=== PATIENT | female | born 1970 | race Caucasian/White ===

== ENCOUNTER 2022-09-04 13:46 | Outpatient (CLI) | payer OTHER, SELFPAY | END 2022-09-04 13:47 | disposition home or self-care (01) | LOC: LKVREF 09-08 11:00 | PROVIDERS: PCP Physician Assistant Medical; Visit Provider Registered Nurse | DX: R30.0 Dysuria (principal); N39.0 Urinary tract infection, site not specified | CPT/HCPCS: 87086; 87186 ==

== ENCOUNTER 2022-10-09 13:11 | Outpatient (CLI) | payer OTHER, SELFPAY ==
--- NOTE | 2022-10-09 13:20 | CRLHL7_ITS ---
For Patients: As a result of the Century Cures Act, medical imaging exams and procedure reports are released immediately into your electronic medical record. You may view this report before your referring provider. If you have questions, please contact your health care provider. BILATERAL SCREENING MAMMOGRAM WITH COMPUTER-AIDED DETECTION TECHNIQUE: CC and MLO views were obtained. These mammographic images have been obtained using full-field digital technique. These mammographic images were interpreted with the benefit of computer-aided detection. COMPARISON FILM: 02/04/21, 04/18/20, 12/24/17. FINDINGS: There are scattered areas of fibroglandular density IMPRESSION: There is no radiographic evidence for malignancy. ASSESSMENT: BI-RADS Category 2: Benign RECOMMENDATION: Routine screening mammogram in 1 year. A lay language report of this examination will be provided to the patient. Kt Irvin M.D. Diagnostic Radiologist [email or web address] SHANE/Dictated by: Kt Irvin MD @ 10/12/2022 8:55:00 AM (Electronically Signed)
== END 2022-10-09 13:12 | disposition home or self-care (01) ==
LOC: MAMMO 13:13
PROVIDERS: PCP Physician Assistant Medical; Visit Provider Physician Assistant Medical
DX: Z12.31 Encounter for screening mammogram for malignant neoplasm of breast (principal)
CPT/HCPCS: 77063; 77067

== ENCOUNTER 2023-08-04 07:30 | Outpatient (CLI) | payer OTHER, SELFPAY | END 2023-08-04 07:31 | disposition home or self-care (01) | LOC: NFLDREF 08-06 12:53 | PROVIDERS: PCP Physician Assistant Medical; Referring Provider Physician Assistant Medical; Visit Provider Physician Assistant Medical | DX: D68.51 Activated protein C resistance (principal); Z79.01 Long term (current) use of anticoagulants | CPT/HCPCS: 85610 ==

== ENCOUNTER 2023-08-13 16:47 | Emergency (ER) | payer OTHER, SELFPAY ==
[2023-08-13 17:04] VITALS: BP 189/121; PULSE 63; RESP 18; TEMP 36.5; O2SAT 97; BMI 43.9
--- NOTE | 2023-08-13 17:56 | CRLHL7_ITS ---
For Patients: As a result of the Century Cures Act, medical imaging exams and procedure reports are released immediately into your electronic medical record. You may view this report before your referring provider. If you have questions, please contact your health care provider. INDICATION: Left flank pain COMPARISON: December 12, 2021 TECHNIQUE: CT examination of the abdomen and pelvis was performed without intravenous contrast. Thin section axial images were obtained from the lung bases through the pubic symphysis. Oral contrast was not administered. Please note that all CT scans at this facility use dose modulation, iterative reconstruction, and/or weight-based dosing when appropriate to reduce radiation dose to as low as reasonably achievable. FINDINGS: LUNG BASES: Basilar opacities likely atelectatic. Smallhiatal hernia. Heart size normal at the lung bases LIVER/BILIARY SYSTEM:The liver is normal in size and configuration given the lack of intravenous contrast. There is no visible focal mass and there is no intra- or extra hepatic biliary ductal dilatation.Surgically absent gallbladder ADRENALS: Normal non-contrast appearance KIDNEYS, URETERS and BLADDER:The kidneys appear normal given lack of intravenous contrast. No visible mass, calculus or hydronephrosis. The ureters and bladder as visualized appear normal. SPLEEN:Normal non-contrast appearance. PANCREAS: Normal non-contrast appearance. RETROPERITONEUM and MESENTERY: There is no mass, adenopathy or aortic aneurysm. GASTROINTESTINAL SYSTEM: Findings of a gastric bypass without visible complication. There is no evidence of diverticulitis, colitis, mechanical obstruction, or appendicitis. The small bowel as visualized appears normal.Fecal retention. Diverticulosis especially sigmoid appearance PELVIS: No mass, adenopathy or free fluid. OSSEOUS STRUCTURES and ABDOMINAL WALL: Degenerative change of the spine. Postoperative changes of the anterior abdominal wall. Small fat containing umbilical region hernia unchanged since the prior study.No significant abdominal wall defect. OTHER: No free fluid or free air. IMPRESSION: 1. There is no specific visible cause for left flank pain. 2. Incidental findings include basilar atelectasis, small hiatal hernia, findings of a gastric bypass, fecal retention without mechanical obstruction, diverticulosis without diverticulitis, and degenerative changes of the spine. There is also a small fat containing ventral hernia, unchanged Please note that all CT scans at this facility use dose modulation, iterative reconstruction, and/or weight-based dosing when appropriate to reduce radiation dose to as low as reasonably achievable. Dictated by Dago Kc MD @ 08/13/2023 6:46:23 PM (Electronically Signed)
--- NOTE | 2023-08-13 17:57 | ED.GENADULT ---
HPI - General Adult General Chief complaint: Back Injury/Pain Stated complaint: back pain, potential kidney stone Time Seen by Provider: 08/13/23 16:49 History of Present Illness HPI narrative: This 53-year-old female comes in from clinic where there was suspicion of a kidney stone. She has had left flank pain for the past 5 days but it has become much worse recently. She has had some nausea and vomiting. She states that she has not had any kidney stone in the past but her mother has had kidney stones. At the clinic she did have urinalysis which was negative for infection but there was microscopic hematuria. She comes here for CT imaging. Related Data Home Medications Medication Instructions Recorded Confirmed warfarin 4 mg tablet mg PO DIRECTED 07/09/22 05/11/23 warfarin 5 mg tablet mg PO DIRECTED 07/09/22 05/11/23 multivitamin 1 tab PO QDAY 08/13/23 08/13/23 Previous Rx's Medication Instructions Recorded warfarin 1 mg tablet See Rx Instructions .Route 12/14/22 .COMPLEX #30 tabs warfarin 1 mg tablet 7 mg PO DIRECTED #90 tabs 08/02/23 warfarin 5 mg tablet 5 mg PO DAILY #90 tabs 08/09/23 hydrocodone 5 mg-acetaminophen 325 1 tab PO QHS PRN pain #14 tabs 08/13/23 mg tablet ondansetron HCl 4 mg tablet 4 mg PO Q8H PRN nausea and 08/13/23 vomiting #30 tabs tamsulosin 0.4 mg capsule (Flomax) 0.4 mg PO QDAY #30 caps 08/13/23 Allergies Allergy/AdvReac Type Severity Reaction Status Date / Time Sulfa Antibiotics Allergy Unknown Uncoded 08/13/23 15:34 Review of Systems Status of ROS: Reports: 10 or more systems reviewed and unremarkable except as noted in History and below Narrative: Constitutional: No fevers, no weight gain or loss. Eyes: No discharge. No vision changes. HENT: No congestion, no sore throat, no ear pain. Cardiovascular: No chest pain, no palpitations. Respiratory: No shortness of breath, no wheezes, no cough. Gastrointestinal: No abdominal pain, no diarrhea. Left flank pain. Nausea with vomiting. Genitourinary: No dysuria. Musculoskeletal: Normal range of motion. Skin: No rashes, no pruritis. Neurological: No dizziness, weakness, sensory change, speech change. Endo/Heme/Allergies: No bruising or bleeding. No polydipsia. Pysch: no suicidality, no anxiety, no insomnia. All other systems reviewed and are negative. [facility] Medical History (Updated 08/13/23 @ 18:56 by Tod Hartmann MD) Urinary tract infection ?N39.0 - Urinary tract infection, site not specified (ICD-10) Dysuria ?R30.0 - Dysuria (ICD-10) Elevated cholesterol ?E78.00 - Pure hypercholesterolemia, unspecified (ICD-10) DVT (deep venous thrombosis) ?I82.409 - Acute embolism and thrombosis of unspecified deep veins of unspecified lower extremity (ICD-10) Cough (01/25/14) ?R05.9 - Cough, unspecified (ICD-10) Cholecystectomy planned S/P gastric bypass ?Z98.84 - Bariatric surgery status (ICD-10) Factor V Leiden ?D68.51 - Activated protein C resistance (ICD-10) Chronic anticoagulation ?Z79.01 - MCC (current) use of anticoagulants (ICD-10) Surgical History (Updated 06/16/22 @ 10:29 by Karlo Cristina) History of right cataract extraction ?Z98.41 - Cataract extraction status, right eye (ICD-10) History of left cataract extraction ?Z98.42 - Cataract extraction status, left eye (ICD-10) History of colonoscopy ?Z98.890 - Other specified postprocedural states (ICD-10) History of section ?Z98.891 - History of uterine scar from previous surgery (ICD-10) History of tonsillectomy ?Z90.89 - Acquired absence of other organs (ICD-10) deliv NOS-unsp History of cholecystectomy ?Z90.49 - Acquired absence of other specified parts of digestive tract (ICD-10) H/O gastric bypass ?Z98.84 - Bariatric surgery status (ICD-10) Family History (Updated 06/18/22 @ 15:36 by Gisel Lombardo ~ [facility], [employer]) Father Diabetes Other Bleeding disorder COPD (chronic obstructive pulmonary disease) Heart disease High blood pressure High cholesterol Mental disorder Social History (Updated 06/16/22 @ 10:30 by Karlo Cristina) Narrative: alcohol ingestion, 1-4 drinks/week, approximately 2 drinks per week does not use illicit drugs non-smoker Smoking Status: Never smoker Do you use any of these nicotine containing products: None How often do you have a drink containing alcohol: never How often do you have six or more drinks on one occasion: Never AUDIT-C Alcohol total score: 0 Non-prescribed substance use: denies use service: No Exam Narrative: Exam Narrative: Constitutional: Well-developed, well-nourished, no acute distress. HEENT: Normocephalic, atraumatic. Neck: Normal range of motion. Nontender. Supple. Heart: Regular. No murmurs. Normal rate. Intact distal pulses. Lungs: Clear to auscultation. No chest discomfort. No wheezes, rhonchi, or rales. Abdomen: Normal bowel sounds. Nontender. No rebound tenderness. Left flank pain reproducible with percussion. Genitalia: Deferred. Back: No midline tenderness. Normal range of motion. Extremities: Normal range of motion. No injury. Skin: Intact. No rash. Warm. No erythema or pallor. Neurologic: No altered sensation. No weakness. Alert and oriented. Psychiatric: No suicidality. No anxiety or depression. No insomnia. Nursing notes and vitals signs are reviewed. Const: Vital Signs, click to edit/add: Vital Signs - 24 hr 08/13/23 17:04 Temperature 97.7 F Pulse Rate [Right Pulse Oximeter] 63 Respiratory Rate 18 Blood Pressure [Ri ght Upper Arm] 189/121 H Pulse Oximetry 97 Oxygen Delivery Me thod Room Air Course Vital Signs Vital signs: Initial Vital Signs Temperature 97.7 F 08/13/23 17:04 Temperature Source Temporal Artery Scan 08/13/23 17:04 Pulse Rate 63 08/13/23 17:04 Respiratory Rate 18 08/13/23 17:04 Blood Pressure 189/121 H 08/13/23 17:04 Blood Pressure Mean 143 H 08/13/23 17:04 Blood Pressure Position Sitting 08/13/23 17:04 Pulse Oximetry 97 08/13/23 17:04 Oxygen Delivery Method Room Air 08/13/23 17:04 Vital Signs Temperature 97.7 F 08/13/23 17:04 Pulse Rate 63 08/13/23 17:04 Respiratory Rate 18 08/13/23 17:04 Blood Pressure 189/121 H 08/13/23 17:04 Pulse Oximetry 97 08/13/23 17:04 Oxygen Delivery Method Room Air 08/13/23 17:04 Temperature 97.7 F 08/13/23 17:04 Pulse Rate 63 08/13/23 17:04 Respiratory Rate 18 08/13/23 17:04 Blood Pressure 189/121 H 08/13/23 17:04 Pulse Oximetry 97 08/13/23 17:04 Oxygen Delivery Method Room Air 08/13/23 17:04 Medical Decision Making MDM Narrative Medical decision making narrative: This patient comes in from clinic where if there was strong suspicion for kidney stone. The patient did receive intramuscular injection of Toradol an oral dose of Zofran which brought relief to her symptoms. Since arriving here she states that she is feeling much better. CT scan without contrast was obtained and does not show any sign of kidney stone. She may have passed the stone prior to arrival and her symptoms are much better. There are no other findings to explain the patient's pain. Patient does have prescriptions for medications that were supplied by her clinician prior to arrival here. She is okay to be discharged home. Imaging Data CT scan - abdomen: Radiologist's impression: 1. There is no specific visible cause for left flank pain. 2. Incidental findings include basilar atelectasis, small hiatal hernia, findings of a gastric bypass, fecal retention without mechanical obstruction, diverticulosis without diverticulitis, and degenerative changes of the spine. There is also a small fat containing ventral hernia, unchanged Discharge Plan Discharge Clinical Impression: Acute left flank pain Patient Disposition: Home, Self-Care Condition: Improved Additional Instructions: Use medications as needed and indicated. Increase activity as tolerated. Follow up with MD return if worsening. Prescriptions: No Action warfarin 5 mg tablet PO DIRECTED Protocol: Dose Management Condition: Wednesday Dose/Route: 8 mg Instruction: 2 x 4 mg tablets Condition: Wednesday Dose/Route: 8 mg Instruction: 2 x 4 mg tablets Condition: Wednesday Dose/Route: 7 mg Instruction: 2 x 1 mg tablets, 1 x 5 mg tablet Condition: Wednesday Dose/Route: 8 mg Instruction: 2 x 4 mg tablets Condition: Dose/Route: 8 mg Instruction: 2 x 4 mg tablets Condition: Wednesday Dose/Route: 8 mg Instruction: 2 x 4 mg tablets Condition: Wednesday Dose/Route: 7 mg Instruction: 2 x 1 mg tablets, 1 x 5 mg tablet Protocol Text: Adjustment Start Date: Wednesday08/04/23 INR Value: 2.94 INR Date: 08/04/23 Recheck Date: 09/01/23 Rx Instructions: Rahman 8 MG, M 8 MG, Tu 8 MG, W 8 MG, Th 8 MG, F 8 MG, Sa 8 MG warfarin 4 mg tablet PO DIRECTED Protocol: Dose Management Condition: Wednesday Dose/Route: 8 mg Instruction: 2 x 4 mg tablets Condition: Wednesday Dose/Route: 8 mg Instruction: 2 x 4 mg tablets Condition: Wednesday Dose/Route: 7 mg Instruction: 2 x 1 mg tablets, 1 x 5 mg tablet Condition: Wednesday Dose/Route: 8 mg Instruction: 2 x 4 mg tablets Condition: Dose/Route: 8 mg Instruction: 2 x 4 mg tablets Condition: Wednesday Dose/Route: 8 mg Instruction: 2 x 4 mg tablets Condition: Wednesday Dose/Route: 7 mg Instruction: 2 x 1 mg tablets, 1 x 5 mg tablet Protocol Text: Adjustment Start Date: Wednesday08/04/23 INR Value: 2.94 INR Date: 08/04/23 Recheck Date: 09/01/23 Rx Instructions: Rahman 8 MG, M 8 MG, Tu 8 MG, W 8 MG, Th 8 MG, F 8 MG, Sa 8 MG multivitamin Tablet 1 tab PO QDAY hydrocodone-acetaminophen 5-325 mg tablet 1 tab PO QHS PRN (Reason: pain) Qty: 14 0RF ondansetron HCl 4 mg tablet 4 mg PO Q8H PRN (Reason: nausea and vomiting) Qty: 30 0RF tamsulosin [Flomax] 0.4 mg capsule 0.4 mg PO QDAY Qty: 30 0RF warfarin 1 mg tablet See Rx Instructions .ROUTE .COMPLEX Qty: 30 0RF Protocol: Dose Management Condition: Wednesday Dose/Route: 8 mg Instruction: 2 x 4 mg tablets Condition: Wednesday Dose/Route: 8 mg Instruction: 2 x 4 mg tablets Condition: Wednesday Dose/Route: 7 mg Instruction: 2 x 1 mg tablets, 1 x 5 mg tablet Condition: Wednesday Dose/Route: 8 mg Instruction: 2 x 4 mg tablets Condition: Dose/Route: 8 mg Instruction: 2 x 4 mg tablets Condition: Wednesday Dose/Route: 8 mg Instruction: 2 x 4 mg tablets Condition: Wednesday Dose/Route: 7 mg Instruction: 2 x 1 mg tablets, 1 x 5 mg tablet Protocol Text: Adjustment Start Date: Wednesday08/04/23 INR Value: 2.94 INR Date: 08/04/23 Recheck Date: 09/01/23 Dose Instruction: TAKE 1 TAB ORALLY EVERY WED, WED & WED TAKE W/ 5MG TAB FOR TOTAL OF 6MG EVERY SUN, , , SAT Rx Instructions: TAKE 1 TAB ORALLY EVERY WED, WED & WED TAKE W/ 5MG TAB FOR TOTAL OF 6MG EVERY SUN, , , SAT warfarin 1 mg tablet 7 mg PO DIRECTED Qty: 90 0RF Protocol: Dose Management Condition: Wednesday Dose/Route: 8 mg Instruction: 2 x 4 mg tablets Condition: Wednesday Dose/Route: 8 mg Instruction: 2 x 4 mg tablets Condition: Wednesday Dose/Route: 7 mg Instruction: 2 x 1 mg tablets, 1 x 5 mg tablet Condition: Wednesday Dose/Route: 8 mg Instruction: 2 x 4 mg tablets Condition: Dose/Route: 8 mg Instruction: 2 x 4 mg tablets Condition: Wednesday Dose/Route: 8 mg Instruction: 2 x 4 mg tablets Condition: Wednesday Dose/Route: 7 mg Instruction: 2 x 1 mg tablets, 1 x 5 mg tablet Protocol Text: Adjustment Start Date: Wednesday08/04/23 INR Value: 2.94 INR Date: 08/04/23 Recheck Date: 09/01/23 Rx Instructions: Take 7mg , Sat; 8mg all other days of the week. warfarin 5 mg tablet 5 mg PO DAILY Qty: 90 0RF Follow Up/Referrals: Luis Manuel Shine PA-C [Primary Care Provider] - Stand Alone Forms: [facility] Instructions
== END 2023-08-13 19:00 | disposition home or self-care (01) ==
PROVIDERS: Emergency Provider Emergency Medicine Emergency Medical Services; PCP Physician Assistant Medical
DX: R10.9 Unspecified abdominal pain (principal)
CPT/HCPCS: 74176; 99283; 99284

== ENCOUNTER 2023-11-11 07:39 | Outpatient (REF) | payer OTHER, SELFPAY | END 2023-11-11 07:40 | disposition home or self-care (01) | LOC: NFLDREF 07:39 | PROVIDERS: PCP Physician Assistant Medical; Referring Provider Physician Assistant Medical; Visit Provider Physician Assistant Medical | DX: Z79.01 Long term (current) use of anticoagulants (principal) | CPT/HCPCS: 85610 ==

== ENCOUNTER 2023-11-30 07:29 | Outpatient (CLI) | payer OTHER, SELFPAY | END 2023-11-30 07:30 | disposition home or self-care (01) | LOC: NFLDREF 12-03 18:14 | PROVIDERS: PCP Physician Assistant Medical; Referring Provider Physician Assistant Medical; Visit Provider Physician Assistant Medical | DX: Z79.01 Long term (current) use of anticoagulants (principal) | CPT/HCPCS: 85610 ==

== ENCOUNTER 2024-08-02 07:31 | Outpatient (CLI) | payer OTHER, SELFPAY | END 2024-08-02 07:32 | disposition home or self-care (01) | LOC: NFLDREF 08-03 10:58 | PROVIDERS: PCP Physician Assistant Medical; Referring Provider Physician Assistant Medical; Visit Provider Physician Assistant Medical | DX: D68.51 Activated protein C resistance (principal); Z79.01 Long term (current) use of anticoagulants | CPT/HCPCS: 85610 ==

== ENCOUNTER 2024-09-12 07:44 | Outpatient (CLI) | payer OTHER, SELFPAY | END 2024-09-12 07:45 | disposition home or self-care (01) | PROVIDERS: PCP Physician Assistant Medical; Visit Provider Physician Assistant Medical | DX: Z00.00 Encounter for general adult medical examination without abnormal findings (principal); I10 Essential (primary) hypertension; E66.01 Morbid (severe) obesity due to excess calories; D68.51 Activated protein C resistance; Z79.01 Long term (current) use of anticoagulants | CPT/HCPCS: 80053; 80061; 84443 ==

== ENCOUNTER 2024-09-22 08:21 | Emergency (ER) | payer OTHER, SELFPAY ==
[2024-09-22 08:39] VITALS: BP 184/96; PULSE 75; RESP 28; TEMP 36.6; O2SAT 96; BMI 45.0
--- NOTE | 2024-09-22 08:52 | ED_ITS ---
HPI - General Adult General Time Seen by Provider: 08:54 Date Seen: 09/22/24 Chief complaint: Abdominal Pain Stated complaint: severe pain in lower left side Time Seen by Provider: 09/22/24 08:52 Source: patient, RN notes reviewed and old records reviewed Mode of arrival: ambulatory Limitations: no limitations History of Present Illness HPI narrative: Solange is a 54-year-old female coming in with concern of abdominal pain, she is concerned she might have recurrent diverticulitis. She has had recent cough and cold symptoms, did go in for her physical on September 12. Her left ear was found to have fluid, treated with Augmentin for otitis media. Her ear symptoms have improved. She is still mildly coughing. Prior to that physical appointment, she notes that she was having significant diarrhea, lost about 10 lb. She was improved by the time she went to the physical. Since starting the Augmentin she is still having some diarrhea. She notes she feels severe left- sided pain and when she gets up she has a burning sensation in her lower abdomen. She is noticing potentially increased urinary frequency and urgency. She has a long history of what sounds to be urge incontinence but that is particularly worsened. She notes she feels cold but has not noted a fever. She had 1 time where there was some blood in the stool. She is chronically anticoagulated with Coumadin for history of blood clots with underlying factor 5 Leiden. She is due for her INR check, we did discuss doing this today. She does note last night that she felt a little chest heaviness and pressure but otherwise overall respiratory symptoms are improving. No prior history of asthma or chronic lung issues. This symptom has resolved, does not feel that way at all today. She notes no pain into her legs from her back, she has had a history of sciatica but does not feel this. Diarrhea was worse in the beginning, not as bad now. Related Data Previous Rx's ?Medication ?Instructions ?Recorded warfarin 1 mg tablet 1 mg PO DIRECTED #90 tabs 11/12/23 warfarin 5 mg tablet 5 mg PO DAILY #90 tabs 07/31/24 amoxicillin 875 mg-potassium 1 tab PO BID #20 tabs 09/12/24 clavulanate 125 mg tablet azithromycin 250 mg tablet See Rx Instructions PO .COMPLEX #6 09/22/24 tabs cyclobenzaprine 10 mg tablet 10 mg PO TID PRN muscle spasm #30 09/22/24 tabs oxycodone 5 mg tablet 5 mg PO Q6H PRN pain #10 tabs 09/22/24 Allergies Allergy/AdvReac Type Severity Reaction Status Date / Time Sulfa (Sulfonamide Allergy Verified 09/22/24 09:34 Antibiotics) Review of Systems Status of ROS: Reports: 6 or more systems reviewed and unremarkable except as noted in History and below PFSH [facility] Medical History History of seizure ?Z87.898 - Personal history of other specified conditions (ICD-10) Diverticulitis of sigmoid colon ?K57.32 - Diverticulitis of large intestine without perforation or abscess without bleeding (ICD-10) Cholelithiasis ?K80.20 - Calculus of gallbladder without cholecystitis without obstruction (ICD-10) Elevated cholesterol ?E78.00 - Pure hypercholesterolemia, unspecified (ICD-10) DVT (deep venous thrombosis) ?I82.409 - Acute embolism and thrombosis of unspecified deep veins of unspecified lower extremity (ICD-10) Surgical History S/P gastric bypass ?Z98.84 - Bariatric surgery status (ICD-10) History of right cataract extraction ?Z98.41 - Cataract extraction status, right eye (ICD-10) History of left cataract extraction ?Z98.42 - Cataract extraction status, left eye (ICD-10) History of colonoscopy ?Z98.890 - Other specified postprocedural states (ICD-10) History of section ?Z98.891 - History of uterine scar from previous surgery (ICD-10) History of tonsillectomy ?Z90.89 - Acquired absence of other organs (ICD-10) deliv NOS-unsp History of cholecystectomy ?Z90.49 - Acquired absence of other specified parts of digestive tract (ICD- 10) Family History Father Diabetes Other Bleeding disorder COPD (chronic obstructive pulmonary disease) Heart disease High blood pressure High cholesterol Mental disorder Social History Narrative: alcohol ingestion, 1-4 drinks/week, approximately 2 drinks per week does not use illicit drugs non-smoker What is your current living situation?: I presently have a place to live Problems where you live: no known problems In the past 12 months, utilities in danger of being shut off: no In past 12 months, lack of transportation kept you from medical appts, meetings, work, or getting things needed for daily living: no In the past 12 mos, have been you worried that your food would run out before you had money to buy more?: never true In the past 12 mos, the food you bought just didn't last and you didn't have money to buy more?: never true Smoking Status: Never smoker Do you use any of these nicotine containing products: None How often do you have a drink containing alcohol: never How often do you have six or more drinks on one occasion: Never AUDIT-C Alcohol total score: 0 Non-prescribed substance use: denies use How often does anyone, including family, friends and others, physically hurt you : never How often does anyone, including family, friends and others, insult or talk down to you: never How often does anyone, including family, friends and others, threaten you with harm: never How often does anyone, including family, friends and others, scream or curse at you: never Little interest or pleasure in doing things: not at all Feeling down, depressed, or hopeless: not at all service: No Exam Const: Vital Signs, click to edit/add: Vital Signs - 24 hr 09/22/24 08:39 Temperature 97.9 F Pulse Rate [Pulse Oximeter] 75 Respiratory Rate 28 H Blood Pressure [Ri ght Forearm] 184/96 H Pulse Oximetry 96 Oxygen Delivery Me thod Room Air This 54-year-old female is alert, interactive, no apparent distress. She is able to speak in complete sentences, speech normal. Sclera clear, conjugate gaze, symmetrical facial function. CV regular rate and rhythm, no murmur, normal S1-S2, no S3-S4. She has pain attempting to roll over for me to listen to her lungs, did not think she could sit up due to the left back pain. She points to an area below the ribs and in the lumbar spine area in the musculature where her pain is. She certainly seems to have some pain with movement. Lung bases are clear, good air entry, no wheezing or crackles, no tachypnea. No midline tenderness. Abdomen is soft, nontender, nondistended, normal bowel sounds, no rebound or guarding. No lower extremity edema noted. Documenting provider has reviewed patient's vital signs: yes Course Course ED Course: Clinically this patient seems to have some musculoskeletal back pain observing her. She has had symptoms so that do need to consider intra-abdominal pathology, certainly diverticulitis is a possibility. CT imaging will alerted us to any intra-abdominal pathologies. Will get urinalysis, it is possible that there is pathology within the urinary system which could be infectious etiology given recent diarrhea. Doubtful that this is a kidney stone based on symptoms but certainly will be considered. Will get a full complement of labs. She does not need anything for pain management at this time. Will do a portable chest x- ray given her recent respiratory symptoms, look at abdominal imaging with the CT. If there is pathology for diverticulitis, she has been on Augmentin. If she does have diarrhea here, will check C difficile. Reevaluation(s) Time of Reevaluation #1: 11:20 Reevaluation #1: If patient is complaining of significant left-sided back pain. There is nothing in the CT imaging that would correspond to this. We discussed the chest x-ray is showing possible pneumonia verses a nodule. Augmentin is appropriate treatment but atypical coverage should be expanded on. Would recommend a Z-Clyde. We also reviewed her CT imaging of her abdomen. There is some inflammatory change with lymph nodes along the colon, no diverticulitis, no urinary changes. Differential is colitis versus infectious versus inflammatory bowel. She states she has had a colonoscopy before. We discussed that next step would be stool collection, consideration of colonoscopy if ongoing symptoms. She has been on Augmentin, with the lung findings do think she needs to complete this. If her C difficile should come back positive, may need to consider stopping all antibiotics and treating with vancomycin. She does have an elevated white blood count and C reactive protein which would go with inflammation or infection. Will give her a 1 time dose of Toradol here, do note she is on Coumadin but do think this left back pain is musculoskeletal. Will send her home with a muscle relaxant and some pain management, she can take Tylenol baseline, try ice or heat. There are many things going on with her, difficult to tie them together or to treat at this time. I do not think she warrants hospitalization. She certainly may need further workup outpatient, return to the ER for worsening in the interim. Vital Signs Vital signs: Initial Vital Signs Temperature 97.9 F 09/22/24 08:39 Temperature Source Temporal Artery Scan 09/22/24 08:39 Pulse Rate 75 09/22/24 08:39 Pulse Rhythm Regular 09/22/24 08:39 Respiratory Rate 28 H 09/22/24 08:39 Blood Pressure 184/96 H 09/22/24 08:39 Blood Pressure Mean 125 H 09/22/24 08:39 Blood Pressure Position Supine 09/22/24 08:39 Pulse Oximetry 96 09/22/24 08:39 Oxygen Delivery Method Room Air 09/22/24 08:39 Vital Signs Temperature 97.9 F 09/22/24 08:39 Pulse Rate 75 09/22/24 08:39 Respiratory Rate 28 H 09/22/24 08:39 Blood Pressure 184/96 H 09/22/24 08:39 Pulse Oximetry 96 09/22/24 08:39 Oxygen Delivery Method Room Air 09/22/24 08:39 Temperature 97.9 F 09/22/24 08:39 Pulse Rate 75 09/22/24 08:39 Respiratory Rate 28 H 09/22/24 08:39 Blood Pressure 184/96 H 09/22/24 08:39 Pulse Oximetry 96 09/22/24 08:39 Oxygen Delivery Method Room Air 09/22/24 08:39 Medications Administered Medications: Discontinued Medications Generic Name Dose Route Start Last Admin Trade Name Ivana PRN Reason Stop Dose Admin Ketorolac Tromethamine 15 mg 09/22/24 11:21 09/22/24 11:28 Ketorolac 15 Mg/Ml Inj IVP 09/22/24 11:22 15 mg ONCE ONE Administration Medical Decision Making Lab Data Labs: Lab Results 09/22/24 09/22/24 Range/Units 09:22 09:30 WBC 14.34 H (4.50-11.00) K/uL RBC 4.98 (4.00-5.20) m/uL Hgb 13.6 (12.0-16.0) gm/dL Hct 43.1 (33.0-51.0) % MCV 87 (80-100) fL MCH 27 (26-34) pg MCHC 32 (32-36) gm/dL RDW Coeff of Mindy 13.4 (11.5-15.5) % Plt Count 331 (140-440) K/uL Neut % (Auto) 79.6 H (42.0-72.0) % Lymph % (Auto) 14.3 L (20-44) % [place] % (Auto) 4.1 (0.0-11.0) % Eos % (Auto) 1.4 (0.0-7.0) % Baso % (Auto) 0.3 (0.0-3.0) % Neut # (Auto) 11.40 H (1.7-7.0) K/uL Lymph # (Auto) 2.10 (0.90-2.90) K/uL [place] # (Auto) 0.60 (0.00-0.90) K/UL Eos # (Auto) 0.20 (0.00-0.50) K/uL Baso # (Auto) 0.00 (0.00-0.30) K/uL Abs Immat Gran (auto) 0.00 (0.00-0.30) K/uL Imm/Tot Granulo (auto) 0.3 % INR 2.19 H (0.91-1.10) Sodium 136 (135-149) mmol/L Potassium 3.7 (3.6-5.1) mmol/L Chloride 102 (96-114) mmol/L Carbon Dioxide 27 (20-32) mmol/L Anion Gap 7 (7-15) mEq/L BUN 5 L (7-30) mg/dL Creatinine 0.6 (0.5-1.5) mg/dL Estimated Creat Clear 101.81 Estimated GFR 105 ml/min Glucose 97 (60-115) mg/dL Lactate 0.8 (0.5-1.9) mmol/L Calcium 9.3 (8.4-10.6) mg/dL Total Bilirubin 0.5 (0.1-1.5) mg/dL AST 29 (12-35) U/L ALT 23 (4-35) U/L Alkaline Phosphatase 92 (40-150) U/L Troponin I < 0.01 L (0.01-0.04) ng/mL C-Reactive Protein 3.5 H (0.5-1.0) mg/dL Total Protein 7.6 (6.0-8.3) g/dL Albumin 4.3 (3.3-5.0) g/dL Urine Color Yellow (Yellow) Urine Appearance Clear (Clear) Urine pH 7.5 (5.0-8.5) Ur Specific [place] 1.020 (1.000-1.030) Urine Protein Negative (Negative) Urine Glucose (UA) Negative (Negative) Urine Ketones Negative (Negative) Urine Blood Trace-intact A (Negative) Urine Nitrite Negative (Negative) Urine Bilirubin Negative (Negative) Urine Urobilinogen 0.2 (0.2-1.0) Ur Leukocyte Esterase Negative (Negative) Urine RBC 2-5 A (0-2) Urine WBC 0-2 (0-5) Ur Squamous Epith Cells None (None-Few) Urine Bacteria None (None) Imaging Data CT scan - abdomen: Attestation: I have reviewed the pertinent imaging results. Radiologist's impression: Patient: SOLANGE COBURN Facility:?[facility] Patient ID:?[id number] Site Patient ID:?[id number]. Site :?[id number] Study:?CT-Abdomen/Pelvis W/ 150CC ISOVUE 370-09/22/2024 9:54:44 AM Ordering Physician:Mana Abreu Final Report: INDICATION: Severe left-sided abdominal and back pain TECHNIQUE: Axial images were obtained from the diaphragm to the pubic symphysis. Reformats were obtained in the coronal and sagittal plane. IV Contrast: 150 cc Isovue 370 Oral Contrast: None COMPARISON: Abdomen and pelvis CT 08/13/2023 FINDINGS: Lower chest: Minimal discoid atelectasis within the lingula and right middle lobe. Mild mosaic attenuation pattern lung bases. Liver: Unremarkable. Normal in size and attenuation. No masses. Gallbladder and bile ducts: Status post cholecystectomy. Spleen: Unremarkable. Normal in size without mass. Pancreas: Unremarkable. No mass or inflammation. Adrenal glands: Unremarkable. No nodules. Kidneys: Unremarkable. No masses, stones, or hydronephrosis. Vasculature: Unremarkable. GI tract: Status post gastric stapling. No dilated loops of large or small intestine. Underlying colonic diverticulosis. Mildly increased number of pericolonic lymph nodes. Slight prominence of the colonic wall of the right colon and transverse colon with some more prominent intramural fat. Slight areas of faint pericolonic fat stranding in the sigmoid. Pelvis: Uterus unremarkable. Bladder decompressed. External inguinal lymph nodes measuring 11 millimeters. Bones: Degenerative disc disease lumbar spine. IMPRESSION: 1. Extensive colonic diverticulosis. Slight fat stranding at the colon with subcentimeter pericolonic lymph nodes. This does not appear particularly localized surround a diverticulum and is fairly diffuse. Question diffuse colitis, infectious versus inflammatory bowel disease. 2. Status post gastric bypass and cholecystectomy. Please note that all CT scans at this facility use dose modulation, iterative reconstruction, and/or weight-based dosing when appropriate to reduce radiation dose to as low as reasonably achievable. Dictated by Weston Vera MD @ 09/22/2024 10:23:14 AM (Electronic Signature) ECG Data Attestation: I personally reviewed and interpreted this ECG as follows: (Normal sinus rhythm, 73 beats per minute. Probable right bundle branch block.) Prior ECG tracings: not available for review Discharge Plan Discharge Clinical Impression: Acute left-sided back pain Qualifiers: Back pain location: low back pain Sciatica presence: without sciatica Qualified Code(s): M54.50 - Low back pain, unspecified Abdominal pain Qualifiers: Abdominal location: lower abdomen, unspecified Qualified Code(s): R10.30 - Low er abdominal pain, unspecified Pneumonia Qualifiers: Pneumonia type: due to unspecified organism Laterality: left Lung location: lower lobe of lung Qualified Code(s): J18.9 - Pneumonia, unspecified organism Diarrhea Qualifiers: Diarrhea type: unspecified type Qualified Code(s): R19.7 - Diarrhea, unspecified Patient Disposition: Home, Self-Care Condition: Stable Instructions: Acute Low Back Pain (ED), Community Acquired Pneumonia (ED), Abdominal Pain (ED), Nutrition Tips for Relief of Diarrhea (ED) Additional Instructions: INR was 2.19 today, please update your anticoagulation clinic with this result. The nurses will send a stool collection kit, if further diarrhea, collect and return to the hospital. Complete the Augmentin; need to start Z-Clyde for full treatment of potential left-sided pneumonia. For your back, do wonder if this is muscular strain and have sent in some oxycodone for pain management for severe pain. Take Tylenol 1000 mg 3 times a day baseline for pain. I also sent in a muscle relaxant, can try this as well. Try ice or heat to her back, use whichever makes you feel better. If your abdominal pain is worsening, have further concerns or feel you are worsening, please return to the ER. Otherwise, need to schedule follow-up in clinic next week. If you have ongoing abdominal discomfort and diarrhea that is not worse requiring re-evaluation in the ER, need to be seen in clinic and consideration for colonoscopy done for further diagnosis. Activity Level: Activity as Tolerated Prescriptions: New azithromycin 250 mg tablet See Rx Instructions .ROUTE .COMPLEX Qty: 6 0RF Rx Instructions: For 250 mg dose pack: take 500 mg today (day 1), then 250 mg for 4 days (days 2-5) cyclobenzaprine 10 mg tablet 10 mg PO TID PRN (Reason: muscle spasm) Qty: 30 0RF oxycodone 5 mg tablet 5 mg PO Q6H PRN (Reason: pain) Qty: 10 0RF No Action amoxicillin-pot clavulanate 875-125 mg tablet 1 tab PO BID Qty: 20 0RF warfarin 1 mg tablet 1 mg PO DIRECTED Qty: 90 0RF Protocol: Dose Management Condition: Wednesday Dose/Route: 5 mg Instruction: 1 x 5 mg tablet Condition: Wednesday Dose/Route: 5 mg Instruction: 1 x 5 mg tablet Condition: Wednesday Dose/Route: 5 mg Instruction: 1 x 5 mg tablet Condition: Wednesday Dose/Route: 5 mg Instruction: 1 x 5 mg tablet Condition: Dose/Route: 5 mg Instruction: 1 x 5 mg tablet Condition: Wednesday Dose/Route: 5 mg Instruction: 1 x 5 mg tablet Condition: Wednesday Dose/Route: 5 mg Instruction: 1 x 5 mg tablet Protocol Text: Adjustment Start Date: Wednesday09/12/24 INR Value: 2.0 INR Date: 09/12/24 Recheck Date: 09/26/24 Rx Instructions: Take 8mg Wed, Wed; and 7mg all other days of the week. warfarin 5 mg tablet 5 mg PO DAILY Qty: 90 0RF Protocol: Dose Management Condition: Wednesday Dose/Route: 5 mg Instruction: 1 x 5 mg tablet Condition: Wednesday Dose/Route: 5 mg Instruction: 1 x 5 mg tablet Condition: Wednesday Dose/Route: 5 mg Instruction: 1 x 5 mg tablet Condition: Wednesday Dose/Route: 5 mg Instruction: 1 x 5 mg tablet Condition: Dose/Route: 5 mg Instruction: 1 x 5 mg tablet Condition: Wednesday Dose/Route: 5 mg Instruction: 1 x 5 mg tablet Condition: Wednesday Dose/Route: 5 mg Instruction: 1 x 5 mg tablet Protocol Text: Adjustment Start Date: Wednesday09/12/24 INR Value: 2.0 INR Date: 09/12/24 Recheck Date: 09/26/24 Follow Up/Referrals: Luis Manuel Shine, PARo[facility] [Primary Care Provider] - Stand Alone Forms: [facility] Info Instructions
[2024-09-22 09:05] VITALS: O2SAT 96
--- NOTE | 2024-09-22 09:06 | CRLHL7_ITS ---
For Patients: As a result of the Century Cures Act, medical imaging exams and procedure reports are released immediately into your electronic medical record. You may view this report before your referring provider. If you have questions, please contact your health care provider. INDICATION: Severe left-sided abdominal and back pain TECHNIQUE: Axial images were obtained from the diaphragm to the pubic symphysis. Reformats were obtained in the coronal and sagittal plane. IV Contrast: 150 cc Isovue 370 Oral Contrast: None COMPARISON: Abdomen and pelvis CT 08/13/2023 FINDINGS: Lower chest: Minimal discoid atelectasis within the lingula and right middle lobe. Mild mosaic attenuation pattern lung bases. Liver: Unremarkable. Normal in size and attenuation. No masses. Gallbladder and bile ducts: Status post cholecystectomy. Spleen: Unremarkable. Normal in size without mass. Pancreas: Unremarkable. No mass or inflammation. Adrenal glands: Unremarkable. No nodules. Kidneys: Unremarkable. No masses, stones, or hydronephrosis. Vasculature: Unremarkable. GI tract: Status post gastric stapling. No dilated loops of large or small intestine. Underlying colonic diverticulosis. Mildly increased number of pericolonic lymph nodes. Slight prominence of the colonic wall of the right colon and transverse colon with some more prominent intramural fat. Slight areas of faint pericolonic fat stranding in the sigmoid. Pelvis: Uterus unremarkable. Bladder decompressed. External inguinal lymph nodes measuring 11 millimeters. Bones: Degenerative disc disease lumbar spine. IMPRESSION: 1. Extensive colonic diverticulosis. Slight fat stranding at the colon with subcentimeter pericolonic lymph nodes. This does not appear particularly localized surround a diverticulum and is fairly diffuse. Question diffuse colitis, infectious versus inflammatory bowel disease. 2. Status post gastric bypass and cholecystectomy. Please note that all CT scans at this facility use dose modulation, iterative reconstruction, and/or weight-based dosing when appropriate to reduce radiation dose to as low as reasonably achievable. Dictated by Weston Vera MD @ 09/22/2024 10:23:14 AM (Electronically Signed)
[2024-09-22 09:29] LABS: Appearance Urine Clear (Clear); Bilirubin Urine Negative (Negative); Blood Urine Trace-intact (Negative); Color Urine Yellow (Yellow); Glucose Urine Negative (Negative); Ketones Urine Negative (Negative); Leukocyte Esterase Urine Negative (Negative); Nitrite Urine Negative (Negative); Protein Urine Negative (Negative); Urobilinogen Urine 0.2 (0.2-1.0); pH Urine 7.5 (5.0-8.5)
[2024-09-22 09:34] LABS: WBC Urine 0-2 (0-5)
[2024-09-22 09:39] LABS: Lactate* 0.8 mmol/L (0.5-1.9)
[2024-09-22 09:42] LABS: Basophils Percent Auto 0.3 % (0.0-3.0); Eosinophils Percent Auto 1.4 % (0.0-7.0); Hematocrit 43.1 % (33.0-51.0); Hemoglobin* 13.6 gm/dL (12.0-16.0); Immature Granulocytes Pct Auto 0.3 %; Lymphocytes Percent Auto 14.3 % (20-44); Mean Corpuscular HGB Conc 32 gm/dL (32-36); Mean Corpuscular Hemoglobin 27 pg (26-34); Mean Corpuscular Volume 87 fL (80-100); Monocytes Percent Auto 4.1 % (0.0-11.0); Neutrophils Percent Auto 79.6 % (42.0-72.0); Platelet Count* 331 K/uL (140-440); RDW Coefficient of Variation % 13.4 % (11.5-15.5); Red Blood Count 4.98 m/uL (4.00-5.20); White Blood Count* 14.34 K/uL (4.50-11.00)
[2024-09-22 09:45] LABS: Slide Review Reflex No
[2024-09-22 09:53] LABS: Chloride* 102 mmol/L (96-114)
[2024-09-22 09:54] LABS: Albumin* 4.3 g/dL (3.3-5.0); Sodium* 136 mmol/L (135-149)
[2024-09-22 09:55] LABS: Potassium* 3.7 mmol/L (3.6-5.1)
[2024-09-22 09:56] LABS: INR 2.19 (0.91-1.10)
[2024-09-22 09:57] LABS: Alanine Aminotransferase* 23 U/L (4-35); Alkaline Phosphatase* 92 U/L (40-150); Anion Gap 7 mEq/L (7-15); Aspartate Amino Transferase* 29 U/L (12-35); Bilirubin Total* 0.5 mg/dL (0.1-1.5); Blood Urea Nitrogen* 5 mg/dL (7-30); Carbon Dioxide* 27 mmol/L (20-32); Creatinine* 0.6 mg/dL (0.5-1.5); Est. Creatinine Clearance* 101.81; Estimated Glomerular Filt Rate 105 ml/min; Glucose* 97 mg/dL (60-115); Total Protein* 7.6 g/dL (6.0-8.3)
[2024-09-22 09:58] LABS: Calcium* 9.3 mg/dL (8.4-10.6)
--- NOTE | 2024-09-22 09:58 | CRLHL7_ITS ---
For Patients: As a result of the Century Cures Act, medical imaging exams and procedure reports are released immediately into your electronic medical record. You may view this report before your referring provider. If you have questions, please contact your health care provider. Indication: Cough. Technique: One view(s) of the chest. Comparison: None available. Findings: Normal cardiomediastinal silhouette and pulmonary vasculature. Lungs are well inflated. Focal nodular opacity along the left diaphragmatic margin. Otherwise, lungs are clear. No pleural effusion. No pneumothorax. No acute osseous abnormality identified. Impression: Focal nodular opacity within the left lung base may represent early/developing pneumonia versus a pulmonary nodule. Recommend repeat chest radiographs in 4-6 weeks (with PA and lateral views) for further evaluation and to document resolution. Dictated by Leola Baker MD @ 09/22/2024 10:41:08 AM (Electronically Signed)
[2024-09-22 10:00] LABS: C Reactive Protein* 3.5 mg/dL (0.5-1.0)
[2024-09-22 10:09] LABS: Troponin I* < 0.01 ng/mL (0.01-0.04)
[2024-09-22] MEDS: KETOROLAC 15 MG/ML inj IVP (11:28)
[2024-09-22 12:46] LABS: C.Difficile Negative (Negative); CDIFFEPI 027 PRESUMPTIVE NEGATIVE (Negative)
[2024-09-29 23:51] LABS: Ova and Parasite, Fecal Negative (Negative)
== END 2024-09-22 11:56 | disposition home or self-care (01) ==
PROVIDERS: Emergency Provider Family Medicine; PCP Physician Assistant Medical
DX: J18.9 Pneumonia, unspecified organism (principal); M54.9 Dorsalgia, unspecified; R10.9 Unspecified abdominal pain; R19.7 Diarrhea, unspecified
CPT/HCPCS: 36415; 71045; 74177; 80053; 81001; 83605; 84484; 85025; 85610; 86140; 87045; 87046; 87077; 87147; 87177; 87209; 87427; 87493; 93005; 94761; 96374; 99284; 99285; J1885; Q9967

== ENCOUNTER 2024-10-09 10:30 | Emergency (ER) | payer OTHER, SELFPAY ==
[2024-10-09] VITALS (7 sets, daily range): BP systolic 148–165; BP diastolic 86–106; PULSE 65–74; RESP 20; TEMP 36.3; O2SAT 91–98; BMI 45.0
--- NOTE | 2024-10-09 11:03 | CRLHL7_ITS ---
For Patients: As a result of the Century Cures Act, medical imaging exams and procedure reports are released immediately into your electronic medical record. You may view this report before your referring provider. If you have questions, please contact your health care provider. INDICATION: Shortness of breath. TECHNIQUE: Chest 2 views. COMPARISON: Chest radiograph 09/22/2024. CT abdomen and pelvis 09/22/2024. FINDINGS: No pneumothorax or pleural effusion. Nodular density corresponding to scarring or atelectasis on prior CT at the left lung base is unchanged. Lungs are otherwise clear. Cardiac and mediastinal contours are within normal limits. Upper abdomen and osseous structures as imaged show no acute abnormality. IMPRESSION: No evidence of acute cardiopulmonary disease. Dictated by Kirk Schwarz MD @ 10/09/2024 11:50:52 AM (Electronically Signed)
--- NOTE | 2024-10-09 11:04 | ED.GENADULT ---
HPI - General Adult General Chief complaint: Shortness of Breath/Dyspnea Stated complaint: Continued respiratory issues from last visit Time Seen by Provider: 10/09/24 10:43 Source: patient Mode of arrival: ambulatory Limitations: no limitations History of Present Illness HPI narrative: 54-year-old female coming in today complaining shortness of breath and cough going on for 2 months. Patient states that she was diagnosed with pneumonia at the beginning of the month and got better after treatment. Then got worse and went to see her primary care provider who put her on steroids. She got better at that time but now she is worse again. She states that her cough is just unbearable and keeps her up at night. Used to be productive but now it is a dry cough. She denies any fevers but every now and then feels chills. She feels increasing shortness of breath. She states that she has a hard time getting to the top of the stairs at her house. She denies any chest pain. Related Data Previous Rx's ?Medication ?Instructions ?Recorded warfarin 1 mg tablet 1 mg PO DIRECTED #90 tabs 11/12/23 warfarin 5 mg tablet 5 mg PO DAILY #90 tabs 07/31/24 cyclobenzaprine 10 mg tablet 10 mg PO TID PRN muscle spasm #30 09/22/24 tabs benzonatate 100 mg capsule 100 mg PO BID PRN cough #14 caps 10/09/24 Allergies Allergy/AdvReac Type Severity Reaction Status Date / Time Sulfa (Sulfonamide Allergy Verified 10/09/24 10:50 Antibiotics) Review of Systems Status of ROS: Reports: 10 or more systems reviewed and unremarkable except as noted in History and below [facility] Medical History Factor 5 Leiden mutation, heterozygous ?D68.51 - Activated protein C resistance (ICD-10) History of seizure ?Z87.898 - Personal history of other specified conditions (ICD-10) Elevated cholesterol ?E78.00 - Pure hypercholesterolemia, unspecified (ICD-10) DVT (deep venous thrombosis) ?I82.409 - Acute embolism and thrombosis of unspecified deep veins of unspecified lower extremity (ICD-10) Diverticulitis of sigmoid colon ?K57.32 - Diverticulitis of large intestine without perforation or abscess without bleeding (ICD-10) Cholelithiasis ?K80.20 - Calculus of gallbladder without cholecystitis without obstruction (ICD-10) Surgical History History of right cataract extraction ?Z98.41 - Cataract extraction status, right eye (ICD-10) History of left cataract extraction ?Z98.42 - Cataract extraction status, left eye (ICD-10) History of colonoscopy ?Z98.890 - Other specified postprocedural states (ICD-10) History of section ?Z98.891 - History of uterine scar from previous surgery (ICD-10) S/P gastric bypass ?Z98.84 - Bariatric surgery status (ICD-10) History of tonsillectomy ?Z90.89 - Acquired absence of other organs (ICD-10) deliv NOS-unsp History of cholecystectomy ?Z90.49 - Acquired absence of other specified parts of digestive tract (ICD-10) Family History Father Diabetes Other Bleeding disorder COPD (chronic obstructive pulmonary disease) Heart disease High blood pressure High cholesterol Mental disorder Social History Narrative: alcohol ingestion, 1-4 drinks/week, approximately 2 drinks per week does not use illicit drugs non-smoker What is your current living situation?: I presently have a place to live Problems where you live: no known problems In the past 12 months, utilities in danger of being shut off: no In the past 12 mos, have been you worried that your food would run out before you had money to buy more?: never true In the past 12 mos, the food you bought just didn't last and you didn't have money to buy more?: never true Smoking Status: Never smoker Do you use any of these nicotine containing products: None How often do you have a drink containing alcohol: never How often do you have six or more drinks on one occasion: Never AUDIT-C Alcohol total score: 0 Non-prescribed substance use: denies use How often does anyone, including family, friends and others, physically hurt you: never How often does anyone, including family, friends and others, insult or talk down to you: never How often does anyone, including family, friends and others, threaten you with harm: never How often does anyone, including family, friends and others, scream or curse at you: never service: No Exam Narrative: Exam Narrative: Obese, well-developed patient in no acute distress. Alert and oriented. Answers questions appropriately. Mood and affect are appropriate. Thoughts are goal oriented and rational. No tangential or magical thinking noted. Patient speaks in full sentences without needing to catch her breath. HEENT: Normocephalic atraumatic. Pupils are equally round reactive to light. Extraocular muscles are intact. Conjunctivae are moist without any icterus noted. Moist mucous membranes. Posterior pharynx is normal. Neck is soft without any lymphadenopathy or thyromegaly. No masses are appreciated. Per TMs are clear bilaterally. Cardiovascular: Heart is regular rate and rhythm S1 and S2 are present without any murmurs. Lungs: Clear to auscultation bilaterally no wheezes rhonchi or rales are appreciated. Patient takes deep breaths without any discomfort. Abdomen: Soft and nontender nondistended with normal bowel sounds. Extremities: Bilateral lower extremities show trace edema. Skin: Well perfused. Const: Vital Signs, click to edit/add: Vital Signs - 24 hr 10/09/24 10:42 10/09/24 12:31 10/09/24 12:32 Temperature 97.3 F L Pulse Rate 67 65 Pulse Rate [Pulse Oximeter] 74 Respiratory Rate 20 Blood Pressure 148/86 H Blood Pressure [Ri ght Upper Arm] 154/86 H Pulse Oximetry 98 93 91 Oxygen Delivery Me thod Room Air Course Course ED Course: Workup today was unremarkable. Chest x-ray, read by me, does not show any acute pathology. Blood work was unremarkable. EKG, read by me, shows normal sinus rhythm with a pulse of 68. We discussed potential causes of chronic cough including bronchitis, reflux. At this time recommend daily omeprazole we will send the patient home with Bina Coello as well. Recommend follow-up with primary care in approximately 1 week. Vital Signs Vital signs: Initial Vital Signs Temperature 97.3 F L 10/09/24 10:42 Temperature Source Temporal Artery Scan 10/09/24 10:42 Pulse Rate 74 10/09/24 10:42 Respiratory Rate 20 10/09/24 10:42 Respiratory Effort Normal, Spontaneous, Non-Labored 10/09/24 10:42 Respiratory Depth Normal 10/09/24 10:42 Respiratory Pattern Normal 10/09/24 10:42 Blood Pressure 154/86 H 10/09/24 10:42 Blood Pressure Mean 108 H 10/09/24 10:42 Blood Pressure Position Sitting 10/09/24 10:42 Pulse Oximetry 98 10/09/24 10:42 Oxygen Delivery Method Room Air 10/09/24 10:42 Vital Signs Temperature 97.3 F L 10/09/24 10:42 Pulse Rate 74 10/09/24 10:42 Respiratory Rate 20 10/09/24 10:42 Blood Pressure 154/86 H 10/09/24 10:42 Pulse Oximetry 98 10/09/24 10:42 Oxygen Delivery Method Room Air 10/09/24 10:42 Temperature 97.3 F L 10/09/24 10:42 Pulse Rate 65 10/09/24 12:32 Respiratory Rate 20 10/09/24 10:42 Blood Pressure 148/86 H 10/09/24 12:32 Pulse Oximetry 91 10/09/24 12:32 Oxygen Delivery Method Room Air 10/09/24 10:42 Medical Decision Making MDM Narrative Medical decision making narrative: 54-year-old female with prolonged cough. Plan per above. Lab Data Lab results reviewed: Yes I reviewed the patient's lab results Labs: Lab Results 10/09/24 Range/Units 11:10 WBC 11.81 H (4.50-11.00) K/uL RBC 4.93 (4.00-5.20) m/uL Hgb 13.4 (12.0-16.0) gm/dL Hct 43.4 (33.0-51.0) % MCV 88 (80-100) fL MCH 27 (26-34) pg MCHC 31 L (32-36) gm/dL RDW Coeff of Mindy 14.0 (11.5-15.5) % Plt Count 311 (140-440) K/uL Neut % (Auto) 74.7 H (42.0-72.0) % Lymph % (Auto) 16.7 L (20-44) % Edwards % (Auto) 4.3 (0.0-11.0) % Eos % (Auto) 3.0 (0.0-7.0) % Baso % (Auto) 0.5 (0.0-3.0) % Neut # (Auto) 8.80 H (1.7-7.0) K/uL Lymph # (Auto) 2.00 (0.90-2.90) K/uL Edwards # (Auto) 0.50 (0.00-0.90) K/UL Eos # (Auto) 0.40 (0.00-0.50) K/uL Baso # (Auto) 0.10 (0.00-0.30) K/uL Abs Immat Gran (auto) 0.10 (0.00-0.30) K/uL Imm/Tot Granulo (auto) 0.8 % D-Dimer Quant (PE/DVT) < 0.27 (0.00-0.50) ug/ml Sodium 140 (135-149) mmol/L Potassium 3.6 (3.6-5.1) mmol/L Chloride 108 (96-114) mmol/L Carbon Dioxide 27 (20-32) mmol/L Anion Gap 5 L (7-15) mEq/L BUN 7 (7-30) mg/dL Creatinine 0.5 (0.5-1.5) mg/dL Estimated Creat Clear 122.17 Estimated GFR 110 ml/min Glucose 100 (60-115) mg/dL Calcium 8.9 (8.4-10.6) mg/dL Total Bilirubin 0.4 (0.1-1.5) mg/dL Direct Bilirubin 0.2 (0.0-0.5) mg/dL AST 20 (12-35) U/L ALT 15 (4-35) U/L Alkaline Phosphatase 89 (40-150) U/L Troponin I 0.01 (0.01-0.04) ng/mL C-Reactive Protein 1.9 H (0.5-1.0) mg/dL NT-Pro-B Natriuret Pep 272 pg/mL Total Protein 7.0 (6.0-8.3) g/dL Albumin 3.9 (3.3-5.0) g/dL SARS-CoV-2 (PCR) Negative SARS-CoV-2 (Negative) Monoscreen Negative (Negative) Influenza Type A (PCR) Negative PCR FLU A (Negative) Influenza Type B (PCR) Negative PCR FLU B (Negative) RSV (PCR) Negative PCR RSV (Negative) Imaging Data Chest x-ray: Attestation: I have reviewed the pertinent imaging results. Radiologist's impression: Chest 2 views. COMPARISON: Chest radiograph 09/22/2024. CT abdomen and pelvis 09/22/2024. FINDINGS: No pneumothorax or pleural effusion. Nodular density corresponding to scarring or atelectasis on prior CT at the left lung base is unchanged. Lungs are otherwise clear. Cardiac and mediastinal contours are within normal limits. Upper abdomen and osseous structures as imaged show no acute abnormality. IMPRESSION: No evidence of acute cardiopulmonary disease. ECG Data Attestation: I personally reviewed and interpreted this ECG as follows: Discharge Plan Discharge Clinical Impression: Cough Additional Instructions: Recommend starting a daily omeprazole- this medication will decreasing amount of acid inside her stomach which may help with her cough. It will take approximately 1 week for you to notice a difference. In the meantime okay to take the cough capsules as prescribed/as needed. Recommend you follow-up with your primary care provider in approximately 1 week. Prescriptions: New benzonatate 100 mg capsule 100 mg PO BID PRN (Reason: cough) Qty: 14 0RF No Action cyclobenzaprine 10 mg tablet 10 mg PO TID PRN (Reason: muscle spasm) Qty: 30 0RF warfarin 1 mg tablet 1 mg PO DIRECTED Qty: 90 0RF Protocol: Dose Management Condition: Wednesday Dose/Route: 5 mg Instruction: 1 x 5 mg tablet Condition: Wednesday Dose/Route: 5 mg Instruction: 1 x 5 mg tablet Condition: Wednesday Dose/Route: 5 mg Instruction: 1 x 5 mg tablet Condition: Wednesday Dose/Route: 5 mg Instruction: 1 x 5 mg tablet Condition: Dose/Route: 5 mg Instruction: 1 x 5 mg tablet Condition: Wednesday Dose/Route: 5 mg Instruction: 1 x 5 mg tablet Condition: Wednesday Dose/Route: 5 mg Instruction: 1 x 5 mg tablet Protocol Text: Adjustment Start Date: Wednesday09/12/24 INR Value: 2.0 INR Date: 09/12/24 Recheck Date: 09/26/24 Rx Instructions: Take 8mg Mon, Fri; and 7mg all other days of the week. warfarin 5 mg tablet 5 mg PO DAILY Qty: 90 0RF Protocol: Dose Management Condition: Wednesday Dose/Route: 5 mg Instruction: 1 x 5 mg tablet Condition: Wednesday Dose/Route: 5 mg Instruction: 1 x 5 mg tablet Condition: Wednesday Dose/Route: 5 mg Instruction: 1 x 5 mg tablet Condition: Wednesday Dose/Route: 5 mg Instruction: 1 x 5 mg tablet Condition: Dose/Route: 5 mg Instruction: 1 x 5 mg tablet Condition: Wednesday Dose/Route: 5 mg Instruction: 1 x 5 mg tablet Condition: Wednesday Dose/Route: 5 mg Instruction: 1 x 5 mg tablet Protocol Text: Adjustment Start Date: Wednesday09/12/24 INR Value: 2.0 INR Date: 09/12/24 Recheck Date: 09/26/24 Follow Up/Referrals: Luis Manuel Shine PA-C [Primary Care Provider] - Stand Alone Forms: [facility] Info Instructions
[2024-10-09 11:34] LABS: Basophils Percent Auto 0.5 % (0.0-3.0); Hematocrit 43.4 % (33.0-51.0); Hemoglobin* 13.4 gm/dL (12.0-16.0); Immature Granulocytes Pct Auto 0.8 %; Lymphocytes Percent Auto 16.7 % (20-44); Mean Corpuscular HGB Conc 31 gm/dL (32-36); Mean Corpuscular Hemoglobin 27 pg (26-34); Mean Corpuscular Volume 88 fL (80-100); Monocytes Percent Auto 4.3 % (0.0-11.0); Neutrophils Percent Auto 74.7 % (42.0-72.0); Platelet Count* 311 K/uL (140-440); Red Blood Count 4.93 m/uL (4.00-5.20); White Blood Count* 11.81 K/uL (4.50-11.00)
[2024-10-09 11:38] LABS: Slide Review Reflex No
--- OUTSIDE RECORDS SUMMARY | 2024-10-09 11:42 | XMS_ITS | Clinical Summary ---
Author Organization [facility] Address [place], [place] [address] Care Team Providers Care Cloth Burler Name Role Phone Unavailable Primary Care Provider Unavailabl e Allergies Active Allergy Reactions Criticality Noted Date Comments Sulfa (Sulfonamide Antibiotics) Hives 03/15 Medications Medication Sig Dispensed Refills Start Date End Date Status lisinopril-hydrochloro thiazide (10-12.5 mg) tablet (PRINZIDE; ZESTORETIC) Take 1 tablet by mouth once daily. Active prednisoLONE acetate 1% ophthalmic (ECONOPRED PLUS, PRED FORTE, OMNIPRED) suspension Place 1 Drop into left eye 4 times daily 5 mL 05/15/2014 Active gatifloxacin 0.5% (ZYMAXID) 0.5 % ophthalmic solution Place 1 Drop into left eye 4 times daily 2.5 mL 05/15/2014 Active ketorolac 0.4 % ophthalmic (ACULAR LS) 0.4 % ophthalmic solution Place 1 Drop into left eye 2 times daily 5 mL 05/15/2014 Active Active Problems Problem Noted Date Diagnosed Date Obesity, unspecified 03/29/2006 Immunizations Name Administration Dates Next Due Td (Age >=7 Years) 03/29/2006 Family History Medical History Relation Name Comments Genetic Other no sz d/o~mothe r DVT, factor 5 Leiden ~maternal uncle factor 5 Leiden~MGM DVT~father, PGF DM2~MGF CAD~mother, father HTN~no CA~no anesthetic complications Relation Name Status Comments Other Social History Tobacco Use Types Packs/Day Years Used Date Smoking Tobacco: Former Cigarettes Smokeless Tobacco: Never Comments:quit at age 21 Alcohol Use Standard Drinks/Week Comments Yes 0 (1 standard drink = 0.6 oz pure alcohol) Alcoholic Drinks/day: 0.5 drink per month Sex and Gender Information Value Date Recorded Sex Assigned at Not on file Gender Identity Not on file Sexual Orientation Not on file Obstetrics History Last Filed Vital Signs Vital Sign Reading Time Taken Comments Blood Pressure 135/86 05/15/2014 4:24 PM CDT Pulse 59 05/15/2014 4:24 PM CDT Temperature 35.9 C (96.6 F) 05/15/2014 12:00 PM CDT Respiratory Rate 16 05/15/2014 4:24 PM CDT Oxygen Saturation 98% 05/15/2014 4:24 PM CDT Inhaled Oxygen Concentration - - Weight 144.2 kg (318 lb) 05/11/2014 12:29 AM CDT Height 172.7 cm (5' 7.99) 05/11/2014 12:29 AM C DT Body Mass Index 48.36 05/11/2014 12:29 AM CDT Plan of Treatment Health Maintenance Due Date Last Done Comments Tdap 1979 Depression screening for age 12+ 1980 HIV for age 15-65 1983 BMI (ht and wt on same day) for age 18+ 1986 Hepatitis C screening for age 18-79 1986 Colonoscopy through age 75 2013 Lipids for age 45-75 2013 03/29/2006 Mammogram for age 45-75 2013 Tetanus booster 03/29/2016 03/29/2006 Zoster (shingles) series for age 50+ (1 of 2) 2018 Pap test for age 21-65 12/10/2020 8, 12/10/2017, 03/29/2006, Additional history exists COVID-19 vaccine series (2023- season) 2024 Influenza for age 50-64 07/16/2024 Pneumococcal series for age 6-64 Aged Out No longer eligible based on patient's age to complete this topic Medical Devices Implanted Type 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 Aeronautical 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 Device Identifier Shelf Expiration Date Model / Serial / Lot Lens Iol Zcb00 22.5 - [id number] Implanted:Qty: 1 on 05/15/2014 by Torey Mcnair at [facility] Left: Eye [employer] [id number]# / [id number] / Procedures Procedure Name Priority Date/Time Associated Diagnosis Comments DOLL WIGS HACKLER THIN PREP PAP SCREEN IMAGED Routine 12/10/2017 3:20 PM AUTO BODY REPAIRER LIPID PANEL Routine 03/29/2006 11:21 AM CDT Routine Gynecological Examination from Last 3 Months or Most Recently Relevant to Health Maintenance Results * DOLL WIGS HACKLER THIN PREP PAP SCREEN IMAGED (12/10/2017 3:20 PM AUTO BODY REPAIRER) Case Report Gynecologic Cytology Report Case: [id number] Authorizing Provider: Martina Guerrier NP Collected: 12/10/2017 1520 First Screen: Sandi Mendoza Received: 12/14/2017 1431 Specimen: DOLL WIGS HACKLER ThinPrep Vial Screening, Cervical/Vaginal 12/16/2017 2:11 PM AUTO BODY REPAIRER [facility] INTERPRETATION/ RESULT NEGATIVE FOR INTRAEPITHELIAL LESION OR MALIGNANCY (NIL) (none) 12/16/2017 2:11 PM [facility]O BODY [facility]PA[facility] IMEN ADEQUACY Satisfactory for evaluation Endocervical component present 12/16/2017 2:11 PM AUTO BODY REPAIRER [facility] [facility] HPV REQUEST HPV and PAP 12/16/2017 2:11 PM AUTO BODY REPAIRER [facility] Date of LMP 12/16/2017 2:11 PM AUTO BODY REPAIRER [facility] Comment:unknown Menstrual Status 12/16/2017 2:11 PM AUTO BODY REPAIRER [facility] Comment:menopause Automated Review Successful 12/16/2017 2:11 PM AUTO BODY REPAIRER [facility] Comment:Specimen processed s uccessfully by automated hearing officer device, ThinPrep Imaging System, [employer] ANCILLARY TESTING DOLL WIGS HACKLER HPV Ordered, Please see separate report 12/16/2017 2:11 PM AUTO BODY REPAIRER [facility] Note The pap test is a screening technique, not a diagnostic procedure. It is used primarily to screen for squamous cancers and precursor lesions. Published studies have shown that it is subject to both false negative and false positive results. The pap test should not be used as the sole means to diagnose or exclude pre-malignant and malignant lesions. Interpreted at [facility] ([facility], [facility], [facility], [facility], [facility], [facility], [facility]) 12/16/2017 2:11 PM AUTO BODY REPAIRER [facility] ENTRAL LABORATORY Other (Cervical/Vagina l) 12/10/2017 3:20 PM AUTO BODY REPAIRER 12/14/2017 2:31 PM AUTO BODY REPAIRER Martina Guerrier NP PATHOLOGY/CYTOLOGY [facility]AL LAB[facility]ATORY [address] [place] [address], * LIPID PANEL (03/29/2006 11:21 AM CDT) CHOLESTEROL,TOTAL 168 110 - 199 mg/dL [facility] TRIGLYCERIDES 107 40 - 149 mg/dL [facility] HDL CHOLESTEROL 46 >40 mg/dL [facility] CHOL/HDL RATIO 3.65 <4.51 [facility] LDL CHOLESTEROL 101 <131 mg/dL [facility] PATIENT STATUS Fasting [facility] Blood specimen (specimen) BLOOD SPECIMEN / Unknown 03/29/2006 11:21 AM CDT 03/29/2006 11:19 AM CDT Nida Hernandez MD CHEMISTRY [facility] INTERNAL ZIP [id number] [place] [id number] from Last 3 Months or Most Recently Relevant to Health Maintenance Advance Directives * Full Code (Latest Code Status on File) Date Activated Date Inactivated Comments 05/15/2014 12:05 PM 05/15/2014 7:15 PM
[2024-10-09 11:49] LABS: Albumin* 3.9 g/dL (3.3-5.0); Chloride* 108 mmol/L (96-114); Sodium* 140 mmol/L (135-149)
[2024-10-09 11:50] LABS: Potassium* 3.6 mmol/L (3.6-5.1)
[2024-10-09 11:52] LABS: Anion Gap 5 mEq/L (7-15); Aspartate Amino Transferase* 20 U/L (12-35); Bilirubin Direct* 0.2 mg/dL (0.0-0.5); Bilirubin Total* 0.4 mg/dL (0.1-1.5); Carbon Dioxide* 27 mmol/L (20-32); Creatinine* 0.5 mg/dL (0.5-1.5); Est. Creatinine Clearance* 122.17; Estimated Glomerular Filt Rate 110 ml/min
[2024-10-09 11:53] LABS: Alanine Aminotransferase* 15 U/L (4-35); Alkaline Phosphatase* 89 U/L (40-150); Blood Urea Nitrogen* 7 mg/dL (7-30); Calcium* 8.9 mg/dL (8.4-10.6); Glucose* 100 mg/dL (60-115)
[2024-10-09 11:55] LABS: C Reactive Protein* 1.9 mg/dL (0.5-1.0)
[2024-10-09 12:02] LABS: Troponin I* 0.01 ng/mL (0.01-0.04)
[2024-10-09 12:03] LABS: D Dimer Quantitative* < 0.27 ug/ml (0.00-0.50)
[2024-10-09 12:04] LABS: NT Pro B Type NatriureticPept* 272 pg/mL
[2024-10-09 12:09] LABS: Mono Screen* Negative (Negative)
[2024-10-09 12:31] LABS: PCR FLU A Negative PCR FLU A (Negative); PCR FLU B Negative PCR FLU B (Negative); PCR RSV Negative PCR RSV (Negative); SARS PCR* Negative SARS-CoV-2 (Negative)
== END 2024-10-09 13:06 | disposition home or self-care (01) ==
PROVIDERS: Emergency Provider Family Medicine; PCP Physician Assistant Medical
DX: R05.9 Cough, unspecified (principal)
CPT/HCPCS: 36415; 71046; 80048; 80076; 83880; 84484; 85025; 85379; 86140; 86308; 87631; 93005; 99284; 99285

== ENCOUNTER 2024-10-23 14:00 | Outpatient (CLI) | payer OTHER, SELFPAY | END 2024-10-23 14:01 | disposition home or self-care (01) | LOC: NFLDREF 10-26 11:51 | PROVIDERS: PCP Physician Assistant Medical; Referring Provider Physician Assistant Medical; Visit Provider Physician Assistant Medical | DX: D68.51 Activated protein C resistance (principal); Z79.01 Long term (current) use of anticoagulants | CPT/HCPCS: 85610 ==

== ENCOUNTER 2024-11-03 10:28 | Outpatient (CLI) | payer OTHER, SELFPAY ==
--- NOTE | 2024-11-03 11:00 | CRLHL7_ITS ---
For Patients: As a result of the Century Cures Act, medical imaging exams and procedure reports are released immediately into your electronic medical record. You may view this report before your referring provider. If you have questions, please contact your health care provider. Indication: BRONCHITIS, ONGOING COUGH W/PHLEGM Technique: Noncontrast CT chest Please note that all CT scans at this facility use dose modulation, iterative reconstruction, and/or weight-based dosing when appropriate to reduce radiation dose to as low as reasonably achievable. Comparison: Chest x-ray 10/09/2024 Findings: Multifocal bilateral patchy areas of mosaic lung attenuation. No associated nodules or pleural effusion. No adenopathy or pneumothorax. Scarring within the upper lobes bilaterally. Sub cm lymph nodes in the mediastinum. Postop changes of gastric bypass and gallbladder resection. Impression: Multifocal bilateral small airway disease, differential diagnosis includes hypersensitivity pneumonitis, respiratory bronchiolitis interstitial lung disease or connective tissue diseases among other causes. Pulmonology referral recommended. Please note that all CT scans at this facility use dose modulation, iterative reconstruction, and/or weight-based dosing when appropriate to reduce radiation dose to as low as reasonably achievable. Dictated by Kt Irvin MD @ 11/03/2024 11:03:10 AM (Electronically Signed)
== END 2024-11-03 10:29 | disposition home or self-care (01) ==
LOC: CT 10:29
PROVIDERS: PCP Physician Assistant Medical; Visit Provider Physician Assistant Medical
DX: J40 Bronchitis, not specified as acute or chronic (principal); R05.2 Subacute cough
CPT/HCPCS: 71250

== ENCOUNTER 2024-11-28 15:15 | Outpatient (CLI) | payer OTHER, SELFPAY ==
--- NOTE | 2024-11-28 15:20 | CRLHL7_ITS ---
For Patients: As a result of the Century Cures Act, medical imaging exams and procedure reports are released immediately into your electronic medical record. You may view this report before your referring provider. If you have questions, please contact your health care provider. BILATERAL DIGITAL SCREENING MAMMOGRAM WITH COMPUTER-AIDED DETECTION AND TOMOSYNTHESIS CLINICAL HISTORY: Routine screening exam. COMPARISON: 10/09/22, 02/04/21, 12/24/17. TECHNIQUE: Digital mammogram in CC and MLO projections including computer-aided detection (CAD). Tomosynthesis was used in this interpretation. BREAST COMPOSITION: There are scattered areas of fibroglandular density. FINDINGS: RIGHT Breast: No suspicious findings. LEFT Breast: Focal asymmetric density within the lateral LEFT breast 4 cm from the nipple. IMPRESSION: LEFT breast asymmetry/mass. RECOMMENDATIONS: Additional mammographic views of the LEFT breast including 3D spot compression CC/MLO. LEFT breast ultrasound may also be required. The [facility] will contact the patient. A lay language report of this examination will be provided to the patient. BI-RADS Category 0: Incomplete: Need Additional Imaging Evaluation Dictated by Kt Irvin MD @ 11/29/2024 9:22:10 AM /Dictated by: Kt Irvin MD @ 11/29/2024 9:22:00 AM (Electronically Signed)
== END 2024-11-28 15:16 | disposition home or self-care (01) ==
LOC: MAMMO 15:15
PROVIDERS: PCP Physician Assistant Medical; Visit Provider Physician Assistant Medical
DX: Z12.31 Encounter for screening mammogram for malignant neoplasm of breast (principal); N63.20 Unspecified lump in the left breast, unspecified quadrant
CPT/HCPCS: 77063; 77067

== ENCOUNTER 2024-12-08 09:54 | Emergency (ER) | payer OTHER, SELFPAY ==
[2024-12-08] VITALS (9 sets, daily range): BP systolic 182–202; BP diastolic 92–116; PULSE 79–100; RESP 18; TEMP 36.6; O2SAT 92–97; BMI 46.2
--- NOTE | 2024-12-08 10:38 | CRLHL7_ITS ---
For Patients: As a result of the Century Cures Act, medical imaging exams and procedure reports are released immediately into your electronic medical record. You may view this report before your referring provider. If you have questions, please contact your health care provider. INDICATION: Bilateral flank pain. TECHNIQUE: Multiplanar CT examination of the abdomen and pelvis was performed after the administration of 95 mL Isovue 370 intravenous contrast. COMPARISON: CT abdomen and pelvis 09/22/2024. FINDINGS: Lower chest: Please refer to the separately dictated report of concurrent CT of the chest for full discussion of findings. Liver: Unremarkable. Gallbladder: Cholecystectomy. Biliary: Unremarkable. Pancreas: Within normal limits. Spleen: Unremarkable. Adrenal glands: Unremarkable. Renal/ureters/bladder: Normal in size and symmetrically enhancing. No obstructive uropathy. No hydronephrosis or obstructive urinary calculi. No suspicious renal masses. The ureters appear unremarkable. The bladder is within normal limits. Pelvis: Unremarkable uterus. No adnexal masses. Gastrointestinal: Status post gastric Rosi-en-Y bypass surgery. No bowel wall thickening or bowel obstruction. Normal appendix. Colonic diverticulosis without colonic wall thickening or pericolonic fat stranding to suggest acute diverticulitis. Mild colonic stool burden. Vasculature: No aortic aneurysm. The portal vein remains patent. No significant atherosclerotic calcifications. Lymph nodes: No pathologic lymphadenopathy by size criteria. Peritoneum: No free fluid or pneumoperitoneum. No drainable fluid collections. Abdominal wall/soft tissues: Unremarkable. Small fat containing umbilical hernia. Bones: No acute osseous abnormalities. Multilevel degenerative changes of the visualized thoracolumbar spine. IMPRESSION: No acute abdominal pelvic pathology. The etiology of the patient`s flank pain is not elucidated on this examination. Please note that all CT scans at this facility use dose modulation, iterative reconstruction, and/or weight-based dosing when appropriate to reduce radiation dose to as low as reasonably achievable. Dictated by Lux Pillai MD @ 12/08/2024 12:28:20 PM (Electronically Signed)
--- NOTE | 2024-12-08 10:38 | CRLHL7_ITS ---
For Patients: As a result of the Century Cures Act, medical imaging exams and procedure reports are released immediately into your electronic medical record. You may view this report before your referring provider. If you have questions, please contact your health care provider. TECHNIQUE: Multiplanar CT examination of the head was performed without the use of intravenous contrast. INDICATION: Headache. COMPARISON: None. FINDINGS: No loss of sterling-white differentiation to suggest recent territorial infarct. No intracranial hemorrhage, abnormal extra-axial fluid collection, hydrocephalus or midline shift. The ventricles and cerebral sulci are normal in caliber. The basal cisterns are patent. Partially empty sella turcica, normal anatomic variant. The paranasal sinuses and mastoid air cells remain clear. The orbits and calvarium are unremarkable. The cerebellar tonsils are normal position. IMPRESSION: No acute intracranial findings. Please note that all CT scans at this facility use dose modulation, iterative reconstruction, and/or weight-based dosing when appropriate to reduce radiation dose to as low as reasonably achievable. Dictated by Lux Pillai MD @ 12/08/2024 12:16:29 PM (Electronically Signed)
--- NOTE | 2024-12-08 10:38 | CRLHL7_ITS ---
For Patients: As a result of the Century Cures Act, medical imaging exams and procedure reports are released immediately into your electronic medical record. You may view this report before your referring provider. If you have questions, please contact your health care provider. INDICATION: Right lower extremity swelling. TECHNIQUE: Right lower extremity Doppler venous ultrasound examination was performed. Grayscale and color Doppler images were obtained. COMPARISON: None. FINDINGS: RIGHT LOWER EXTREMITY: Common femoral vein: Fully compressible. No deep vein thrombus. Normal flow and response to augmentation on color Doppler imaging. Superficial femoral vein: Fully compressible. No deep vein thrombus. Normal flow on color Doppler imaging. Deep femoral vein: No deep vein thrombus Popliteal vein: Fully compressible. No deep vein thrombus. Normal flow on color Doppler imaging. Lower calf: The visualized posterior tibial and peroneal veins are fully compressible. No deep vein thrombus. Normal flow and response to augmentation on color Doppler imaging. Superficial veins: The superficial veins, including the greater saphenous vein, remain patent and are fully compressible. Soft tissues: No popliteal fossa fluid collection identified. LEFT LOWER EXTREMITY: Common femoral vein: Fully compressible. No deep vein thrombus. Normal flow and response to augmentation on color Doppler imaging. IMPRESSION: No deep vein thrombus within the right lower extremity. Dictated by Lux Pillai MD @ 12/08/2024 12:06:14 PM (Electronically Signed)
--- NOTE | 2024-12-08 10:38 | CRLHL7_ITS ---
For Patients: As a result of the 21st Century Cures Act, medical imaging exams and procedure reports are released immediately into your electronic medical record. You may view this report before your referring provider. If you have questions, please contact your health care provider. INDICATION: Dyspnea. Chest pain. TECHNIQUE: Multiplanar CT pulmonary angiogram was performed after the administration of 95 mL of Isovue 370 intravenous contrast. MIP reformats were performed. COMPARISON: CT chest 11/03/2024. FINDINGS: Lower neck: The visualized thyroid is unremarkable. Cardiovascular: Contrast opacification of the pulmonary arterial tree is adequate. Heart size is normal. Thoracic aorta and pulmonary artery are normal in caliber. Mild atherosclerotic calcifications of the aortic arch. Coronary arterial calcifications. No pulmonary embolus. Mediastinum and lymph nodes: Unremarkable. No pathologic mediastinal or hilar lymphadenopathy by size criteria. Lungs: No focal consolidation. Grossly unchanged diffuse mosaic attenuation pattern of opacification, nonspecific and can be seen with atypical infection, air trapping or edema. Linear bandlike opacification of the lung bases bilaterally, likely subsegmental atelectasis and/or scarring. Airways: The trachea remains patent and midline. Mild diffuse peribronchial wall thickening. Pleura: No pleural effusions or pneumothorax Chest wall: Unremarkable. Prominent axillary lymph nodes that do not meet size criteria for lymphadenopathy. Bones: No acute osseous abnormalities. Mild degenerative changes of the thoracic spine. Upper abdomen: No acute findings in the visualized upper abdomen. No reflux of contrast material into the IVC. IMPRESSION: 1. No pulmonary embolus. No CT evidence of right heart strain. 2. Stable diffuse mosaic attenuation of the lungs bilaterally, nonspecific and can be seen with small airways versus small vessels disease. 3. No other acute intrathoracic findings. Please note that all CT scans at this facility use dose modulation, iterative reconstruction, and/or weight-based dosing when appropriate to reduce radiation dose to as low as reasonably achievable. Dictated by Lux Pillai MD @ 12/08/2024 12:24:36 PM (Electronically Signed)
--- OUTSIDE RECORDS SUMMARY | 2024-12-08 10:47 | XMS_ITS | Encounter Summary ---
Author Organization [facility] Address [address] [place] [address] Care Team Providers Care Concrete Boom Operator Name Role Phone Luis Manuel Shine PA-C Primary Care Provider [phone] Encounter Details Date Type Department Care Team (Late st Contact Info) Description 11/13/2024 Orders Only [facility] [address] [phone] Urmila Crespo, RN Small airways disease (Primary Dx) Social History Tobacco Use Types Packs/Day Years Used Date Smoking Tobacco: Never Assessed Comments No Sex and Gender Information Value Date Recorded Sex Assigned at Not on file 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 Gender Identity Not on file Sexual Orientation Not on file documented as of this encounter Plan of Treatment Upcoming Encounters Date Type Department Care Team (Late st Contact Info) Description 03/30/2025 2:00 PM CDT Office Visit [facility] Pulmonary Function Testing [address] [phone] 03/30/2025 2:30 PM CDT Office Visit [facility] Pulmonary Function Testing [address] [phone] 03/30/2025 3:00 PM CDT Office Visit [facility] [address] [phone] Monika Vega MD [address] [place] [address] Scheduled Orders Name Type Priority Associated Diagnoses Orde r Schedule Pulmonary Function Test PFT Routine Small airways disease Expected: 11/17/2024 (Approximate), Expires: 11/13/2025 documented as of this encounter Results * General PFT Lab (Please always keep checked) (11/17/2024 12:37 PM MULTIMEDIA TEACHER) FVC-Pred 3.34 L [facility]FT FVC-Pre 2.69 L [facility] FVC-%Pred-Pre 80 % [facility] FEV1-Pre 1.71 L [facility] FEV1-%Pred-Pre 64 % [facility] [id number] 80 % [facility] [id number] 64 % [facility] FEFMax-Pred 6.94 L/sec [facility] FEFMax-Pre 4.89 L/sec [facility]FT FEFMax-%Pred-Pr e 70 % [facility] [id number] 2.45 L/sec [facility] [id number] 0.83 L/sec [facility] PAJ5818-%Pred-P re 33 % [facility] [id number]-Lcgs 0.84 L/sec [facility] [id number]-%Pred-P ost 34 % [facility] ExpTime-Pre 9.15 sec [facility]FT FIFMax-Pre 3.77 L/sec [facility] VC-Pred 3.88 L [facility] VC-Pre 2.70 L [facility] PFT VC-%Pred-Pre 69 % [facility] IC-Pred 2.76 L [facility]FT IC-Pre 2.40 L [facility] PFT IC-%Pred-Pre 87 % [facility] ERV-Pred 1.02 L [facility]FT ERV-Pre 0.30 L [facility]FT ERV-%Pred-Pre 29 % [facility] [id number] 81 % [facility]FT [id number] 66 % [facility] PFT FRCPleth-Pred 3.12 L [facility] PFT FRCPleth-Pre 3.16 L [facility] PFT FRCPleth-%Pred- Pre 101 % [facility] PFT RVPleth-Pred 1.99 L [facility] PFT RVPleth-Pre 2.86 L [facility] PFT RVPleth-%Pred-P re 143 % [facility] PFT TLCPleth-Pred 5.44 L [facility] PFT TLCPleth-Pre 5.56 L [facility] PFT TLCPleth-%Pred- Pre 102 % [facility] PFT DLCOunc-Pred 21.59 ml/min/mmHg [facility] PFT DLCOunc-Pre 24.46 ml/min/mmHg [facility] PFT DLCOunc-%Pred-P re 113 % [facility] PFT DLCOcor-Pre 24.10 ml/min/mmHg [facility] PFT DLCOcor-%Pred-P re 111 % [facility] PFT VA-Pre 4.14 L [facility] PFT VA-%Pred-Pre 79 % [facility]FT [id number] 69 % [facility] PFT [id number]-Cls 63 % [facility] PFT 11/17/2024 12:3 7 PM MULTIMEDIA TEACHER Narrative [facility] PFT - 11/17/2024 6:36 PM MULTIMEDIA TEACHER The FEV1, FEV1/FVC ratio, and the FEV1/FEV6 ratio are reduced. The FVC is within normal limits. The inspiratory flow rates are within normal limits. Following administration of bronchodilators, there is no significant response. The FRC and TLC are within normal limits. The RV and RV/TLC ratio are elevated. The DLCO is normal. IMPRESSION: Mild airflow obstruction No significant change in spirometry following bronchodilators, but this does not rule out clinical efficacy Normal diffusing capacity The total lung capacity is normal. The increase in the RV and RV/TLC suggests air trapping. Rob Sales MD This interpretation has been electronically signed: ROB SALES 11/17/2024 06:33:04 PM Aamaria victoria Vega MD PFT ORDERABLES Final Result [facility] PFT documented in this encounter Visit Diagnoses Diagnosis Small airways disease- Primary Other diseases of lung, not elsewhere classified Small airways disease Other diseases of lung, not elsewhere classified documented in this encounter Care Teams Concrete Boom Operator Relationship Specialty Start Date End Date Luis Manuel Shine PA-C [address] [place] [address] PCP - General 11/03/24 documented as of this encounter
--- OUTSIDE RECORDS SUMMARY | 2024-12-08 10:47 | XMS_ITS | Encounter Summary ---
Author Organization [facility] Address [address] [place] [address] Care Team Providers Care Teaching Manager Name Role Phone Luis Manuel Shine PA-C Primary Care Provider [phone] Reason for Visit * Reason Onset Date Comments Call To Schedule Appointment 11/10/2024 Encounter Details Date Type Department Care Team (Late st Contact Info) Description 11/10/2024 Telephone [facility] [address] [phone] Unknown, Provider Call To Schedule Appointment Social History Tobacco Use Types Packs/Day Years Used Date Smoking Tobacco: Never Assessed Comments No Sex and Gender Information Value Date Recorded Sex Assigned at Not on file 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 Pt is scheduled for 1/[address] Vega, PFTs prior. Pt is aware of appt date and time, and also signed up for [employer] notifications. RN CAR ATTENDANT * Telephone Encounter - Kerry Hector - 11/10/2024 11:42 AM CST <Pulmonary referral received> Referring Provider/Clinic: Bernardino Dennis MD (ED) Urgency: Priority 1-2 weeks Patient scheduled for: NA Provider: STACY XIAOM attempt 1 to schedule referral. RN CAR ATTENDANT documented in this encounter Plan of Treatment Upcoming Encounters Date Type Department Care Team (Late st Contact Info) Description 03/30/2025 2:00 PM CDT Office Visit [facility] Pulmonary Function Testing [address] [phone] 03/30/2025 2:30 PM CDT Office Visit [facility] Pulmonary Function Testing [address] [phone] 03/30/2025 3:00 PM CDT Office Visit [facility] [address] [phone] Monika Vega MD [address] [place] [address] documented as of this encounter Visit Diagnoses Not on filedocumented in this encounter Care Teams Teaching Manager Relationship Specialty Start Date End Date Luis Manuel Shine PA-C [address] [place] [address] PCP - General 11/03/24 documented as of this encounter
--- OUTSIDE RECORDS SUMMARY | 2024-12-08 10:47 | XMS_ITS | Encounter Summary ---
Author Organization [facility] Address [address] [place] [address] Care Team Providers Care Radiator Fitter Name Role Phone Luis Manuel Shine PA-C Primary Care Provider [phone] Encounter Details Date Type Department Care Team (Latest Contact Info) Description 11/03/2024 Travel Social History Tobacco Use Types Packs/Day Years Used Date Smoking Tobacco: Never Assessed Comments No Sex and Gender Information Value Date Recorded Sex Assigned at Not on file Legal Sex Female 4:24 AM LINOLEUM FLOOR LAYER Gender Identity Not on file Sexual Orientation Not on file documented as of this encounter Plan of Treatment Upcoming Encounters Date Type Department Care Team (Late st Contact Info) Description 03/30/2025 2:00 PM CDT Office Visit [facility] Pulmonary Function Testing [address] [phone] 03/30/2025 2:30 PM CDT Office Visit [facility] Pulmonary Function Testing [address] [phone] 03/30/2025 3:00 PM CDT Office Visit [facility] [address] [phone] Monika Vega MD [address] [place] [address] documented as of this encounter Visit Diagnoses Not on filedocumented in this encounter Care Teams Radiator Fitter Relationship Specialty Start Date End Date Luis Manuel Shine PA-C [facility] [address] [place] [address] PCP - General 11/03/24 documented as of this encounter
--- OUTSIDE RECORDS SUMMARY | 2024-12-08 10:47 | XMS_ITS | Encounter Summary ---
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 Gender Identity Not on file Sexual Orientation Not on file documented as of this encounter Plan of Treatment Upcoming Encounters Date Type Department Care Team (Late st Contact Info) Description 03/30/2025 2:00 PM CDT Office Visit [facility] Pulmonary Function Testing [address] [phone] 03/30/2025 2:30 PM CDT Office Visit [facility] Pulmonary Function Testing [address] [phone] 03/30/2025 3:00 PM CDT Office Visit [facility] [address] [phone] Monika Vega MD [address] [place] [address] documented as of this encounter Visit Diagnoses Not on filedocumented in this encounter Care Teams Desktop Publishing Associate Relationship Specialty Start Date End Date Luis Manuel Shine PA-C [place] [address] [place] [address] PCP - General 11/03/24 documented as of this encounter
--- OUTSIDE RECORDS SUMMARY | 2024-12-08 10:47 | XMS_ITS | Encounter Summary ---
Author Organization [facility] Address [address] [place] [id number] Care Team Providers Care Chemical Lab Technician Name Role Phone Luis Manuel Shine PA-C Primary Care Provider [phone] Reason for Referral * Diagnostic Imaging XR (Routine) - Pending Review Specialty Diagnoses / Procedures Referred By Walter t Referred To Contact Radiology. Diagnoses Small airways disease Dyspnea, unspecified type Procedures XR Chest 2 Views Monika Vega MD [address] [place] [id number] Phone: tel: fax: Referral ID Status Reason Start Date Expiration Date V isits Requested Visits Authorized [id number] Pending Review 11/17/2024 11/17/2025 1 1 ING SYSTEMS AND EQUIPMENT REPAIRER Reason for Visit * Reason Comments New Patient New Pulmonary * Consultation (Priority: 1-2 Weeks) - Pending Review Specialty Diagnoses / Procedures Referred By Contjacklyn t Referred To Contact Pulmonary Disease Diagnoses Small airways disease Bernardino Dennis MD [facility] [address] [place] [address] Phone: tel: fax: Referral ID Status Reason Start Date Expiration Date V isits Requested Visits Authorized [id number] Pending Review 11/03/2024 11/03/2025 1 1 Encounter Details Date Type Department Care Team (Late st Contact Info) Description 11/17/2024 2:00 PM WELDING SYSTEMS AND EQUIPMENT REPAIRER Office Visit [facility] and [address] [address] Monika Vega MD [address] [place] [id number] Dyspnea, unspecified type (Primary Dx); Small airways disease; ILD (interstitial lung disease) (H) Social History Tobacco Use Types Packs/Day Years Used Date Smoking Tobacco: Former Cigarettes Smokeless Tobacco: Never PHQ-2 Answer Date Recorded PHQ-2 Score 1 11/17/2024 Comments No Sex and Gender Information Value Date Recorded Sex Assigned at Not on file Legal Sex Female 4:24 AM WELDING SYSTEMS AND EQUIPMENT REPAIRER Gender Identity Not on file Sexual Orientation Not on file documented as of this encounter Last Filed Vital Signs Vital Sign Reading Time Taken Comments Blood Pressure 147/86 11/17/2024 1:14 PM WELDING SYSTEMS AND EQUIPMENT REPAIRER Pulse 77 11/17/2024 1:14 PM WELDING SYSTEMS AND EQUIPMENT REPAIRER Temperature - - Respiratory Rate - - Oxygen Saturation 92% 11/17/2024 1:14 PM WELDING SYSTEMS AND EQUIPMENT REPAIRER Inhaled Oxygen Concentration - - Weight 140.2 kg (309 lb 1.6 oz) 11/17/2024 1:14 PM WELDING SYSTEMS AND EQUIPMENT REPAIRER Height 170.2 cm (5' 7) 11/17/2024 1:14 PM WELDING SYSTEMS AND EQUIPMENT REPAIRER Body Mass Index 48.41 11/17/2024 1:14 PM WELDING SYSTEMS AND EQUIPMENT REPAIRER documented in this encounter Patient Instructions * Patient Instructions* Monika Vega MD - 11/17/2024 2:00 PM WELDING SYSTEMS AND EQUIPMENT REPAIRER For clinical questions, please call our nursing line [phone] For scheduling, please call [phone] ING SYSTEMS AND EQUIPMENT REPAIRER * Attachments The following attachments cannot be sent through Care Everywhere. * GERD (Angolan) documented in this encounter Progress Notes * Monika Vega MD - 11/17/2024 2:00 PM CST See separate note from today. ING SYSTEMS AND EQUIPMENT REPAIRER * Hair Shine MD - 11/17/2024 2:00 PM CST Images from the original note were not included. [facility] [address] [phone] Patient: Radha Amanda, Date of 1970 Date of Visit: 11/17/2024 Referring Provider Bernardino Dennis Assessment & Plan This is a 54-year-old female with a chronic productive cough, now resolved, with CT suggesting small airway disease and new PFTs showing a mixed obstructive/restrictive disease pattern, that is most consistent with post-viral bronchitis. Small airway disease Mixed obstructive lung disease (mild/moderate), non-responsive to bronchodilator, with concurrent thoracic restriction Likely post-viral bronchitis Presented with 4-month history of a productive cough following viral-like symptoms, found on CT to have patchy infiltrates and a a mosaic like pattern, and PFTs today showing a clear obstructive lungdisease pattern, evident by the reduced FEV1. Patient is now feeling better and given her clinical story, the most likely etiology for her symptoms is a postviral bronchitis that had some difficulty improving. Other considerations included possible early heart failure however patient without significant cardiac history and no other clear signs of heart failure (no lower extremity edema, no PND, no orthopnea) vs asthma although patient has not had asthma in the past and the overall clinical picture is not consistent vs a possible hypersensitivity pneumonitis. Of note, the patient also has a concurrent restrictive lung disease pattern on today's PFTs as supported by her reduced SVC and ERV; this is most likely to be an extrinsic restrictive mechanism given that the patient's DLCO is normal,rather high as opposed to being low. It can most likely be attributed to her body habitus. At this time, the patient is asymptomatic for the longest duration in the past 4 weeks, no indication to restart therapy at this time. Will plan to recheck blood work and obtain radiographic imaging to ensureimprovement in the prior inflammation. - Repeat CXR (2V) to assess for resolution of infiltrate - Check Hypersensitivity Pneumonitis Panel - No further anti-inflammatory therapy indicated at this time - Continue albuterol inhaler use PRN - Information on GERD management provided - Repeat PFTs/Exhaled NO in 3 months RTC: 3 months No LOS data to display Time spent by me today doing chart review, history and exam, documentation and further activities per the note Patient case discussed with Dr. Vega. 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 Patient explains that her her symptoms began in early August. She reports having cold like symptoms consisting of primarily a productive cough with greenish colored sputum. Concurrently, she endorsed having diarrhea and abdominal pain for which she was unable to tolerate any p.o. intake. She wasseen by her primary care doctor in late August for physical at which time her symptoms had improved but they noticed that she had fluid in her ear. She was prescribed a course of Augmentin. Her respiratory symptoms resurfaced in the coming days and she also started to have shortness of breath at which point she presented to [facility] in early September. A chest x-ray was obtained showing infiltrate so she was prescribed azithromycin to take in addition to her Augmentin. Additionally a stoolsample was checked for her ongoing abdominal pain and found to test positive for Salmonella. Patient was discharged home and felt better for several days before returning back to the ER for resurfacing of her respiratory symptoms. She was given a course of prednisone and Doxycycline. Repeat chest x-ray was obtained showing still present infiltrates so a subsequent CT chest was obtained for bettercharacterization. She felt better after completion of the antibiotic course and prednisone taper before her symptoms resurfaced shortly there afterwards. She spoke with her primary care provider who recommended that she go to the [facility] ER for evaluation; there, she was prescribed another taper course of prednisone and along with a albuterol inhaler. Furthermore, she was given a referral to follow-up in pulmonary clinic. Patient still endorsed having productive cough with greenish colored phlegm that has now improved just prior to this clinic visit. Patient has never had the symptoms prior to the initial episode back in August. He reports that his symptoms fluctuated day-to-day; some days were bad and then some days improved with medications. Unable to identify any specific triggers. Patient has cats for many years but has never had any otherallergic reactions to them. Patient does not go outside much during the winter times but was able to spend the [place] outside [facility] without any issues. Patient lives in a relatively new house without without evidence of mold. No prior history of asthma. Patient did smoke for a brief period intermittently approximately 30 years ago for about 10 years. No recent exposure to caves terrains or bird droppings. No history of autoimmune disease but father reportedly had rheumatoid arthritis. No fevers, chills, chest pain, chest tightness, nausea, vomiting, PND, orthopnea, lower extremity edema. Patient does endorse gaining weight but attributes it to the prednisone that she has been taking for the past 2 months. Current Outpatient Medications Medication Sig Dispense Refill albuterol (PROAIR HFA/PROVENTIL HFA/VENTOLIN HFA) 108 (90 Base) MCG/ACT inhaler INHALE 2 PUFFS EVERY 6 HOURS NEEDED FOR SHORTNESS OF BREATH OR WHEEZING lisinopril-hydrochlorothiazide (ZESTORETIC) 10-12.5 MG tablet Take 1 tablet by mouth daily. loratadine (CLARITIN) 10 MG tablet Take 10 mg by mouth daily. losartan (COZAAR) 25 MG tablet 25 MG ORALLY EVERY DAY FOR 30 DAYS warfarin ANTICOAGULANT (COUMADIN) 5 MG tablet Take 1 tablet by mouth daily at 2 pm. predniSONE (DELTASONE) 20 MG tablet Take 2 tablets (40 mg) by mouth daily for 5 days, THEN 1 tablet(20 mg) daily for 5 days, THEN 0.5 tablets (10 mg) daily for 4 days. (Patient not taking: Reported on 11/17/2024) 17 tablet 0 No current facility-administered medications for this visit. Allergies Allergen Reactions Sulfa Antibiotics Hives No past medical history on file. No past surgical history on file. Social History Socioeconomic History Marital status: Spouse name: Not on file Number of children: Not on file Years of education: Not on file Highest education level: Not on file Occupational History Not on file Tobacco Use Smoking status: Former Types: Cigarettes Smokeless tobacco: Never Substance and Sexual Activity Alcohol use: Not on file Drug use: Not on file Sexual activity: Not on file Other Topics Concern Not on file Social History Narrative Not on file Social Drivers of Health Financial Resource Strain: Not on file Food Insecurity: Not on file Transportation Needs: Not on file Physical Activity: Not on file Stress: Not on file Social Connections: Not on file Interpersonal Safety: Not on file Housing Stability: Not on file No family history on file. Physical Exam Vital signs: BP (!) 147/86 (BP Location: Right arm, Patient Position: Chair) Pulse 77 Ht 1.702 m (5' 7) Wt 140.2 kg (309 lb 1.6 oz) SpO2 92% BMI 48.41 kg/m?? GENERAL: alert and no distress, morbid obesity NECK: no adenopathy, no asymmetry, masses, or scars RESP: lungs clear to auscultation - no rales, rhonchi or wheezes CV: regular rate and rhythm, normal S1 S2, no S3 or S4, no murmur, click or rub, no peripheral edema ABDOMEN: soft, nontender, no hepatosplenomegaly, no masses and bowel sounds normal MS: no gross musculoskeletal defects noted, no edema Data Laboratory data and imaging listed below were reviewed as part of this encounter. Office Visit on 11/17/2024 Component Date Value Ref Range Status FVC-Pred 11/17/2024 3.34 L Preliminary FVC-Pre 11/17/2024 2.69 L Preliminary FVC-%Pred-Pre 11/17/2024 80 % Preliminary FEV1-Pre 11/17/2024 1.71 L Preliminary FEV1-%Pred-Pre 11/17/2024 64 % Preliminary FFL4GZG-Xpld 11/17/2024 80 % Preliminary PKD2DEL-Yes 11/17/2024 64 % Preliminary FEFMax-Pred 11/17/2024 6.94 L/sec Preliminary FEFMax-Pre 11/17/2024 4.89 L/sec Preliminary FEFMax-%Pred-Pre 11/17/2024 70 % Preliminary [id number]-Gzev 11/17/2024 2.45 L/sec Preliminary FXU8721-Joc 11/17/2024 0.83 L/sec Preliminary PAG3783-%Pred-Pre 11/17/2024 33 % Preliminary EAW0135-Ejqk 11/17/2024 0.84 L/sec Preliminary XVV0019-%Pred-Post 11/17/2024 34 % Preliminary ExpTime-Pre 11/17/2024 9.15 sec Preliminary FIFMax-Pre 11/17/2024 3.77 L/sec Preliminary VC-Pred 11/17/2024 3.88 L Preliminary VC-Pre 11/17/2024 2.70 L Preliminary VC-%Pred-Pre 11/17/2024 69 % Preliminary IC-Pred 11/17/2024 2.76 L Preliminary IC-Pre 11/17/2024 2.40 L Preliminary IC-%Pred-Pre 11/17/2024 87 % Preliminary ERV-Pred 11/17/2024 1.02 L Preliminary ERV-Pre 11/17/2024 0.30 L Preliminary ERV-%Pred-Pre 11/17/2024 29 % Preliminary UMW0MBB3-Hklq 11/17/2024 81 % Preliminary CFJ6RNP9-Snk 11/17/2024 66 % Preliminary FRCPleth-Pred 11/17/2024 3.12 L Preliminary FRCPleth-Pre 11/17/2024 3.16 L Preliminary FRCPleth-%Pred-Pre 11/17/2024 101 % Preliminary RVPleth-Pred 11/17/2024 1.99 L Preliminary RVPleth-Pre 11/17/2024 2.86 L Preliminary RVPleth-%Pred-Pre 11/17/2024 143 % Preliminary TLCPleth-Pred 11/17/2024 5.44 L Preliminary TLCPleth-Pre 11/17/2024 5.56 L Preliminary TLCPleth-%Pred-Pre 11/17/2024 102 % Preliminary DLCOunc-Pred 11/17/2024 21.59 ml/min/mmHg Preliminary DLCOunc-Pre 11/17/2024 24.46 ml/min/mmHg Preliminary DLCOunc-%Pred-Pre 11/17/2024 113 % Preliminary DLCOcor-Pre 11/17/2024 24.10 ml/min/mmHg Preliminary DLCOcor-%Pred-Pre 11/17/2024 111 % Preliminary VA-Pre 11/17/2024 4.14 L Preliminary VA-%Pred-Pre 11/17/2024 79 % Preliminary ETC7KRS-Dkpm 11/17/2024 69 % Preliminary DZP8YCY-Icg 11/17/2024 63 % Preliminary ----- Service Performed and Documented by Resident or Fellow ------ Cosigned by Monika Vega MD at 11/17/2024 2:42 PM WELDING SYSTEMS AND EQUIPMENT REPAIRER ING SYSTEMS AND EQUIPMENT REPAIRER ING SYSTEMS AND EQUIPMENT REPAIRER Associated attestation - Monika Vega MD - 11/17/2024 2:42 PM WELDING SYSTEMS AND EQUIPMENT REPAIRER I saw and examined the patient with Resident. Case discussed - agree with note. Patient is 54F with history and presentation most fitting for lingering post viral bronchitis that has been improving. No previous history to suggest adult onset asthma. Subacute hypersensitivity pneumonitis would be her second differential diagnosis so will send HP panels. PFTs today show mixed obstruction and restriction. We will obtain CXR today to confirm resolution of infiltrates seen on earlier CXR images, and have her come back in 3 months with spirometry and FeNO and confirm resolution of symptoms. Ok to use albuterol for symptomatic relief for now. Monika Vega M.D. Total time spent today on patient encounter, documentation, review of chart and care coordination was 45 minutes. documented in this encounter Nursing Notes * Maynor Gutierrez - 11/17/2024 2:00 PM CST Chief Complaint Patient presents with New Patient New Pulmonary Vitals were taken, medications reconciled. Maynor Gutierrez, Aviation Ordnance Officer 1:18 PM ING SYSTEMS AND EQUIPMENT REPAIRER documented in this encounter Plan of Treatment Upcoming Encounters Date Type Department Care Team (Late st Contact Info) Description 03/30/2025 2:00 PM CDT Office Visit [facility] Pulmonary Function Testing [address] [phone] 03/30/2025 2:30 PM CDT Office Visit [facility] Pulmonary Function Testing [address] [address] 03/30/2025 3:00 PM CDT Office Visit [facility] [address] [phone] Monika Vega MD [address] [place] [id number] Scheduled Orders Name Type Priority Associated Diagnoses Orde r Schedule General PFT Lab (Please always keep checked) PFT Routine Small airways disease Dyspnea, unspecified type Expected: 05/17/2025 (Approximate), Expires: 11/17/2025 Pulmonary Function Test PFT Routine Small airways disease Dyspnea, unspecified type Expected: 02/15/2025 (Approximate), Expires: 11/17/2025 Exhaled Nitric Oxide - FENO PFT Routine Small airways disease Dyspnea, unspecified type Expected: 02/15/2025 (Approximate), Expires: 11/17/2025 documented as of this encounter Results * Hypersensitivity pneumonitis (11/17/2024 2:30 PM WELDING SYSTEMS AND EQUIPMENT REPAIRER) Aspergillus Fumagatis 1 Antibody None Detected None Detected 11/23/2024 4:12 AM WELDING SYSTEMS AND EQUIPMENT REPAIRER [facility] Aspergillus Fumagatis 6 Antibody None Detected None Detected 11/23/2024 4:12 AM WELDING SYSTEMS AND EQUIPMENT REPAIRER [facility] Aureo Pullulans None Detected None Detected 11/23/2024 4:12 AM WELDING SYSTEMS AND EQUIPMENT REPAIRER [facility] Mantee serum None Detected None Detected 11/23/2024 4:12 AM WELDING SYSTEMS AND EQUIPMENT REPAIRER [facility] Micropolyspora Faeni None Detected None Detected 11/23/2024 4:12 AM WELDING SYSTEMS AND EQUIPMENT REPAIRER [facility] Comment: Testing includes antibodies directed at Aureobasidium pullulans, Aspergillus fumigatus #1, Aspergillus fumigatus #6, Micropolyspora faeni, and Mantee Serum. Performed By: [email or web address] [address] [place] [address] Transition Specialist: Vijay Degroot MD, PhD CLIA Number: [id number] Blood STRUCTURE OF LEFT UPPER LIMB / Unknown Venipuncture / Unknown 11/17/2024 2:30 PM WELDING SYSTEMS AND EQUIPMENT REPAIRER 11/17/2024 2:30 PM WELDING SYSTEMS AND EQUIPMENT REPAIRER Monika Vega MD LAB - BLOOD ORDERABLES Final Res ult [employer] [address] [place] [id number] [phone] * Hypersensitivity Pneumonitis 2 (11/17/2024 2:30 PM WELDING SYSTEMS AND EQUIPMENT REPAIRER) Aspergillus flavus Ab None Detected None Detected 11/23/2024 4:12 AM WELDING SYSTEMS AND EQUIPMENT REPAIRER [facility] A fumigatus #2 Ab None Detected None Detected 11/23/2024 4:12 AM WELDING SYSTEMS AND EQUIPMENT REPAIRER [facility] A fumigatus #3 Ab None Detected None Detected 11/23/2024 4:12 AM WELDING SYSTEMS AND EQUIPMENT REPAIRER [facility] Saccharo viridis Ab None Detected None Detected 11/23/2024 4:12 AM WELDING SYSTEMS AND EQUIPMENT REPAIRER [facility] Thermo candidus Ab None Detected None Detected 11/23/2024 4:12 AM WELDING SYSTEMS AND EQUIPMENT REPAIRER [facility] Comment: Testing includes antibodies directed at Aspergillus flavus, Aspergillus fumigatus #2, Aspergillus fumigatus #3, Saccharomonospora viridis, and Thermoactinomyces candidus. Performed By: [email or web address] [address] [place] [address] Transition Specialist: Vijay Degroot MD, PhD CLIA Number: [id number] Blood STRUCTURE OF LEFT UPPER LIMB / Unknown Venipuncture / Unknown 11/17/2024 2:30 PM WELDING SYSTEMS AND EQUIPMENT REPAIRER 11/17/2024 2:30 PM WELDING SYSTEMS AND EQUIPMENT REPAIRER [facility] LAB - BLOOD ORDERABLES Final Res ult [facility] [address] [place] [phone], [facility] [phone] * XR Chest 2 Views (11/17/2024 2:22 PM WELDING SYSTEMS AND EQUIPMENT REPAIRER) Anatomical Region Laterality Modality Chest Digital Radiogra phy Impressions 11/17/2024 3:06 PM WELDING SYSTEMS AND EQUIPMENT REPAIRER Impression: Similar streaky perihilar and bibasilar opacities compared to prior radiograph from 10/09/2024. No new consolidation. I have personally reviewed the examination and initial interpretation and I agree with the findings. ESTEBAN GUTHRIE MD Narrative 11/17/2024 3:06 PM WELDING SYSTEMS AND EQUIPMENT REPAIRER Exam: XR CHEST 2 VIEWS, 11/17/2024 2:22 PM Indication: Known significant mosiacism on CT 11/03/24 need to reassess for any residual infiltrates; Small airways disease; Dyspnea, unspecified type Comparison:chest radiograph 10/09/2024, Findings: PA and lateral radiographs of the chest were obtained. The cardiomediastinal silhouette is stable. No pleural effusion or pneumothorax. No new confluent consolidation. Similar streaky perihilar and bibasilar opacities Procedure Note Esteban Guthrie MD - 11/17/2024 Exam: XR CHEST 2 VIEWS, 11/17/2024 2:22 PM Indication: Known significant mosiacism on CT 11/03/24 need to reassess for any residual infiltrates; Small airways disease; Dyspnea, unspecified type Comparison:chest radiograph 10/09/2024, Findings: PA and lateral radiographs of the chest were obtained. The cardiomediastinal silhouette is stable. No pleural effusion or pneumothorax. No new confluent consolidation. Similar streaky perihilar and bibasilar opacities Impression: Similar streaky perihilar and bibasilar opacities compared to prior radiograph from 10/09/2024. No new consolidation. I have personally reviewed the examination and initial interpretation and I agree with the findings. ESTEBAN GUTHRIE MD [facility] IMG DIAGNOSTIC IMAGING ORDERABLE S Final Result documented in this encounter Visit Diagnoses Diagnosis Dyspnea, unspecified type- Primary Small airways disease Other diseases of lung, not elsewhere classified ILD (interstitial lung disease) (H) Postinflammatory pulmonary fibrosis Small airways disease Other diseases of lung, not elsewhere classified Dyspnea, unspecified type documented in this encounter Care Teams Chemical Lab Technician Relationship Specialty Start Date End Date Luis Manuel Shine PA-C [address] [place] [address] PCP - General 11/03/24 documented as of this encounter
--- OUTSIDE RECORDS SUMMARY | 2024-12-08 10:47 | XMS_ITS | Encounter Summary ---
Author Organization [facility] Address [address] [place] [id number] Care Team Providers Care Timber Selector Name Role Phone Luis Manuel Shine PA-C Primary Care Provider [phone] Encounter Details Date Type Department Care Team (Late st Contact Info) Description 11/17/2024 1:00 PM MOSAIC WORKER Office Visit [facility] Pulmonary Function Testing [address] [phone] Small airways disease Social History Tobacco Use Types Packs/Day Years Used Date Smoking Tobacco: Former Cigarettes Smokeless Tobacco: Never PHQ-2 Answer Date Recorded PHQ-2 Score 1 11/17/2024 Comments No Sex and Gender Information Value Date Recorded Sex Assigned at Not on file Legal Sex Female 4:24 AM MOSAIC WORKER Gender Identity Not on file Sexual Orientation Not on file documented as of this encounter Progress Notes * Ann Marie Awad - 11/17/2024 1:00 PM CST Full PFT completed. IC WORKER documented in this encounter Plan of Treatment Upcoming Encounters Date Type Department Care Team (Late st Contact Info) Description 03/30/2025 2:00 PM CDT Office Visit [facility] Pulmonary Function Testing [address] [phone] 03/30/2025 2:30 PM CDT Office Visit [facility] Pulmonary Function Testing [address] [phone] 03/30/2025 3:00 PM CDT Office Visit [facility] [address] [phone] Monika Vega MD [address] [place] [id number] documented as of this encounter Procedures Procedure Name Priority Date/Time Associated Diagnosis Comments ME DIFFUSING CAPACITY Routine 11/17/2024 12:57 PM MOSAIC WORKER Small airways disease ME PLETHYSMOGRAPHY LUNG VOLUMES W/WO AIRWAY RESIST Routine 11/17/2024 12:57 PM MOSAIC WORKER Small airways disease ME VITAL CAPACITY TOTAL Routine 11/17/19 12:57 PM MOSAIC WORKER Small airways disease ME BRONCHODILATION RESPONSE, PRE/POST ADMIN Routine 11/17/2024 12:57 PM MOSAIC WORKER Small airways disease PFT GENERAL LAB TESTING Routine 11/17/19 12:37 PM MOSAIC WORKER Small airways disease documented in this encounter Results * General PFT Lab (Please always keep checked) (11/17/2024 12:37 PM MOSAIC WORKER) FVC-Pred 3.34 L [facility]ZE PFT FVC-Pre 2.69 L [facility]ZE PFT FVC-%Pred-Pre 80 % [facility]ZE PFT FEV1-Pre 1.71 L [facility]ZE PFT FEV1-%Pred-Pre 64 % [facility] PFT [id number] 80 % [facility] PFT [id number] 64 % [facility]ZE PFT FEFMax-Pred 6.94 L/sec BREEZE PFT FEFMax-Pre 4.89 L/sec BREEZE PFT FEFMax-%Pred-Pr e 70 % [facility]ZE PFT [id number] 2.45 L/sec BREEZE PFT [id number] 0.83 L/sec BREEZE PFT [id number]-%Pred-P re 33 % [facility]ZE PFT [id number]-Vuia 0.84 L/sec [facility]REEZE PFT [id number]-%Pred-P ost 34 % BREEZE PFT ExpTime-Pre 9.15 sec BREEZE PFT FIFMax-Pre 3.77 L/sec [facility]REEZE PFT VC-Pred 3.88 L [facility]ZE PFT VC-Pre 2.70 L [facility]REEZE PFT VC-%Pred-Pre 69 % BREEZE PFT IC-Pred 2.76 L [facility] PFT IC-Pre 2.40 L [facility]REEZE PFT IC-%Pred-Pre 87 % [facility]ZE PFT ERV-Pred 1.02 L [facility]ZE PFT ERV-Pre 0.30 L [facility]REEZE PFT ERV-%Pred-Pre 29 % [facility]ZE PFT [id number]-Pdwe 81 % [facility]REEZE PFT [id number] 66 % BREEZE PFT FRCPleth-Pred 3.12 L [...] BREEZE PFT VA-%Pred-Pre 79 % [facility]ZE PFT [id number] 69 % BREEZE PFT [id number] 63 % BREEZE PFT 11/17/2024 12:3 7 PM MOSAIC WORKER Narrative BREEZE PFT - 11/17/2024 6:36 PM MOSAIC WORKER The FEV1, FEV1/FVC ratio, and the FEV1/FEV6 [...] electronically signed: ROB SALES 11/17/2024 06:33:04 PM [facility] Gary CALIXTO PFT ORDERABLES Final Result COOPER PFT documented in this encounter Visit Diagnoses Diagnosis Small airways disease Other diseases of lung, not elsewhere classified documented in this encounter Care Teams Timber Selector Relationship Specialty Start Date End Date Luis Manuel Shine PA-C [address] [place] [address] PCP - General 11/03/24 documented as of this encounter
--- OUTSIDE RECORDS SUMMARY | 2024-12-08 10:47 | XMS_ITS | Referral Summary ---
Author Organization [facility] Address [address] [place] [address] Care Team Providers Care Catering Barista Name Role Phone Luis Manuel Shine PA-C Primary Care Provider [phone] Encounters Date Type Department Care Team Description 11/17/2024 3:15 PM SALES DEVELOPMENT CONSULTANT Lab [facility] [address] [phone] ILD (interstitial lung disease) (H) 11/17/2024 2:30 PM SALES DEVELOPMENT CONSULTANT Ancillary Procedure [facility] Xray [address] [phone] Small airways disease; Dyspnea, unspecified type 11/17/2024 Travel 11/17/2024 PRE VISIT [facility] Science [address] [phone] Monika Vega MD Previsit 11/17/2024 1:00 PM SALES DEVELOPMENT CONSULTANT Office Visit [facility] Pulmonary Function Testing [address] [phone] Small airways disease 11/17/2024 2:00 PM SALES DEVELOPMENT CONSULTANT Office Visit [address] [phone] Monika Vega MD Dyspnea, unspecified type (Primary Dx); Small airways disease; ILD (interstitial lung disease) (H) 11/13/2024 Orders Only [facility] [address] [place] [phone] Urmila Crespo RN Small airways disease (Primary Dx) 11/10/2024 Telephone [facility] [address] [phone] Unknown, Provider Call To Schedule Appointment 11/03/2024 Travel 11/03/2024 3:21 PM SALES DEVELOPMENT CONSULTANT - 11/03/2024 6:42 PM SALES DEVELOPMENT CONSULTANT Emergency [facility] Emergency Dept [address] [place] [phone] Bernardino Dennis MD Small airways disease Discharge Disposition: Home or Self Care from Last 3 Months Allergies Active Allergy Reactions Criticality Noted Date Comments Sulfa Antibiotics Hives 03/29/2006 Medications albuterol (PROAIR HFA/PROVENTIL HFA/VENTOLIN HFA) 108 (90 Base) MCG/ACT inhaler INHALE 2 PUFFS EVERY 6 HOURS NEEDED FOR SHORTNESS OF BREATH OR WHEEZING 10/23/20 24 Active lisinopril-hydroc hlorothiazide (ZESTORETIC) 10-12.5 MG tablet Take 1 tablet by mouth daily. Active losartan (COZAAR) 25 MG tablet 25 MG ORALLY EVERY DAY FOR 30 DAYS 11/06/20 24 Active warfarin ANTICOAGULANT (COUMADIN) 5 MG tablet Take 1 tablet by mouth daily at 2 pm. 10/31/20 24 Active loratadine (CLARITIN) 10 MG tablet Take 10 mg by mouth daily. Active predniSONE (DELTASONE) 20 MG tablet Take 2 tablets (40 mg) by mouth daily for 5 days, THEN 1 tablet (20 mg) daily for 5 days, THEN 0.5 tablets (10 mg) daily for 4 days. 17 tablet 11/03/20 24 025 Additional Information Patient not taking.Reported on 11/17/2024 Social History Tobacco Use Types Packs/Day Years Used Date Smoking Tobacco: Former Cigarettes Smokeless Tobacco: Never PHQ-2 Answer Date Recorded PHQ-2 Score 1 11/17/2024 Comments No Sex and Gender Information Value Date Recorded Sex Assigned at Not on file Legal Sex Female 4:24 AM SALES DEVELOPMENT CONSULTANT Gender Identity Not on file Sexual Orientation Not on file Last Filed Vital Signs Vital Sign Reading Time Taken Comments Blood Pressure 147/86 11/17/2024 1:14 PM SALES DEVELOPMENT CONSULTANT Pulse 77 11/17/2024 1:14 PM SALES DEVELOPMENT CONSULTANT Temperature 36.4 C (97.5 F) 11/03/2024 1:55 PM SALES DEVELOPMENT CONSULTANT Respiratory Rate 22 11/03/2024 1:55 PM SALES DEVELOPMENT CONSULTANT Oxygen Saturation 92% 11/17/2024 1:14 PM SALES DEVELOPMENT CONSULTANT Inhaled Oxygen Concentration - - Weight 140.2 kg (309 lb 1.6 oz) 11/17/2024 1:14 PM SALES DEVELOPMENT CONSULTANT Height 170.2 cm (5' 7) 11/17/2024 1:14 PM SALES DEVELOPMENT CONSULTANT Body Mass Index 48.41 11/17/2024 1:14 PM SALES DEVELOPMENT CONSULTANT Plan of Treatment Upcoming Encounters Date Type Department Care Team (Late st Contact Info) Description 03/30/2025 2:00 PM CDT Office Visit [facility] Pulmonary Function Testing [address] [phone] 03/30/2025 2:30 PM CDT Office Visit [facility] Pulmonary Function Testing [address] [phone] 03/30/2025 3:00 PM CDT Office Visit [facility] [address] [phone] Monika Vega MD [address] [place] [phone] Procedures Procedure Name Priority Date/Time Associated Diagnosis Comments HYPERSENSITIVITY PNEUMONITIS Routine 11/17/2024 2:30 PM SALES DEVELOPMENT CONSULTANT ILD (interstitial lung disease) (H) HYPERSENSITIVITY PNEUMONITIS 2 Routine 11/17/2024 2:30 PM SALES DEVELOPMENT CONSULTANT ILD (interstitial lung disease) (H) XR CHEST 2 VIEWS Routine 11/17/2024 2:22 PM SALES DEVELOPMENT CONSULTANT Small airways disease Dyspnea, unspecified type MT BRONCHODILATION RESPONSE, PRE/POST ADMIN Routine 11/17/2024 12:57 PM SALES DEVELOPMENT CONSULTANT Small airways disease MT VITAL CAPACITY TOTAL Routine 11/17/19 12:57 PM SALES DEVELOPMENT CONSULTANT Small airways disease MT PLETHYSMOGRAPHY LUNG VOLUMES W/WO AIRWAY RESIST Routine 11/17/2024 12:57 PM SALES DEVELOPMENT CONSULTANT Small airways disease MT DIFFUSING CAPACITY Routine 11/17/2024 12:57 PM SALES DEVELOPMENT CONSULTANT Small airways disease PFT GENERAL LAB TESTING Routine 11/17/19 12:37 PM SALES DEVELOPMENT CONSULTANT Small airways disease CBC WITH PLATELETS & DIFFERENTIAL STAT 11/03/2024 2:23 PM SALES DEVELOPMENT CONSULTANT D DIMER QUANTITATIVE STAT 11/03/2024 2:23 PM SALES DEVELOPMENT CONSULTANT INR STAT 11/03/2024 2:23 PM SALES DEVELOPMENT CONSULTANT EXTRA RED TOP TUBE STAT 11/03/2024 2: 23 PM SALES DEVELOPMENT CONSULTANT EXTRA BLUE TOP TUBE STAT 11/03/2024 2 :23 PM SALES DEVELOPMENT CONSULTANT CBC WITH PLATELETS AND DIFFERENTIAL STAT 11/03/2024 2:23 PM SALES DEVELOPMENT CONSULTANT EXTRA TUBE STAT 11/03/2024 2:23 PM SALES DEVELOPMENT CONSULTANT TROPONIN T, HIGH SENSITIVITY STAT 11/03/2024 2:23 PM SALES DEVELOPMENT CONSULTANT BASIC METABOLIC PANEL STAT 11/03/2024 2:23 PM SALES DEVELOPMENT CONSULTANT EKG 12-LEAD, TRACING ONLY STAT 11/03/2024 2:13 PM SALES DEVELOPMENT CONSULTANT XRAY IMAGING - HIM SCAN 11/03/20 12:00 AM SALES DEVELOPMENT CONSULTANT CT IMAGING - HIM SCAN 11/03/2024 12:00 AM SALES DEVELOPMENT CONSULTANT LAB RESULT - HIM SCAN 10/09/2024 12:00 AM SALES DEVELOPMENT CONSULTANT EKG CARDIAC - HIM SCAN 12:00 AM SALES DEVELOPMENT CONSULTANT from Last 3 Months Results * Hypersensitivity Pneumonitis 2 (11/17/2024 2:30 PM SALES DEVELOPMENT CONSULTANT) Aspergillus flavus Ab None Detected None Detected 11/23/2024 4:12 AM SALES DEVELOPMENT CONSULTANT [facility] A fumigatus #2 Ab None Detected None Detected 11/23/2024 4:12 AM SALES DEVELOPMENT CONSULTANT [facility] A fumigatus #3 Ab None Detected None Detected 11/23/2024 4:12 AM SALES DEVELOPMENT CONSULTANT [facility] Saccharo viridis Ab None Detected None Detected 11/23/2024 4:12 AM SALES DEVELOPMENT CONSULTANT [facility] Thermo candidus Ab None Detected None Detected 11/23/2024 4:12 AM SALES DEVELOPMENT CONSULTANT [facility] Comment: Testing includes antibodies directed at Aspergillus flavus, Aspergillus fumigatus #2, Aspergillus fumigatus #3, Saccharomonospora viridis, and Thermoactinomyces candidus. Performed By: [facility] [address] [place] [address] Client Support Coordinator: Vijay Degroot MD, PhD CLIA Number: [id number] Blood STRUCTURE OF LEFT UPPER LIMB / Unknown Venipuncture / Unknown 11/17/2024 2:30 PM SALES DEVELOPMENT CONSULTANT 11/17/2024 2:30 PM SALES DEVELOPMENT CONSULTANT [facility] Gary CALIXTO LAB - BLOOD ORDERABLES Final Res ult [address] [phone], [facility] [phone] * Hypersensitivity pneumonitis (11/17/2024 2:30 PM SALES DEVELOPMENT CONSULTANT) Pathologist [facility] Aspergillus Fumagatis 1 Antibody None Detected None Detected 11/23/2024 4:12 AM SALES DEVELOPMENT CONSULTANT [facility] Aspergillus Fumagatis 6 Antibody None Detected None Detected 11/23/2024 4:12 AM SALES DEVELOPMENT CONSULTANT [facility] Aureo Pullulans None Detected None Detected 11/23/2024 4:12 AM SALES DEVELOPMENT CONSULTANT [facility] [place] serum None Detected None Detected 11/23/2024 4:12 AM SALES DEVELOPMENT CONSULTANT [facility] Micropolyspora Faeni None Detected None Detected 11/23/2024 4:12 AM SALES DEVELOPMENT CONSULTANT [facility] Comment: Testing includes antibodies directed at Aureobasidium pullulans, Aspergillus fumigatus #1, Aspergillus fumigatus #6, Micropolyspora faeni, and [place] Serum. Performed By: [facility] [address] [place] [address] Client Support Coordinator: Vijay Degroot MD, PhD CLIA Number: [id number] Blood STRUCTURE OF LEFT UPPER LIMB / Unknown Venipuncture / Unknown 11/17/2024 2:30 PM SALES DEVELOPMENT CONSULTANT 11/17/2024 2:30 PM SALES DEVELOPMENT CONSULTANT [facility] Gary [facility] LAB - BLOOD ORDERABLES Final Res ult [facility] [address] [place] [address], [facility] [phone] * XR Chest 2 Views (11/17/2024 2:22 PM SALES DEVELOPMENT CONSULTANT) Anatomical Region Laterality Modality Chest Digital Radiogra phy Impressions 11/17/2024 3:06 PM SALES DEVELOPMENT CONSULTANT Impression: Similar streaky perihilar and bibasilar opacities compared to prior radiograph from 10/09/2024. No new consolidation. I have personally reviewed the examination and initial interpretation and I agree with the findings. ESTEBAN GUTHRIE MD Narrative 11/17/2024 3:06 PM SALES DEVELOPMENT CONSULTANT Exam: XR CHEST 2 VIEWS, 11/17/2024 2:22 [...] agree with the findings. ESTEBAN GUTHRIE MD [facility] IMG DIAGNOSTIC IMAGING ORDERABLE S Final Result * General PFT Lab (Please always keep checked) (11/17/2024 12:37 PM SALES DEVELOPMENT CONSULTANT) FVC-Pred 3.34 L [facility] FVC-Pre 2.69 L [facility] FVC-%Pred-Pre 80 % [facility] FEV1-Pre 1.71 L [facility] FEV1-%Pred-Pre 64 % [facility] [id number] 80 % [facility] [id number] 64 % [facility] FEFMax-Pred 6.94 L/sec [facility] FEFMax-Pre 4.89 L/sec [facility] FEFMax-%Pred-Pr e 70 % [facility] [id number] 2.45 L/sec [facility] [id number] 0.83 L/sec [facility] [id number]-%Pred-P re 33 % [facility] [id number] 0.84 L/sec [facility] [id number]-%Pred-P ost 34 % [facility] ExpTime-Pre 9.15 sec [facility] FIFMax-Pre 3.77 L/sec [facility] VC-Pred 3.88 L [facility] VC-Pre 2.70 L [facility] VC-%Pred-Pre 69 % [facility] IC-Pred 2.76 L [facility] IC-Pre 2.40 L [facility] IC-%Pred-Pre 87 % [facility] ERV-Pred 1.02 L [facility] ERV-Pre 0.30 L [facility] ERV-%Pred-Pre 29 % [facility] [id number] 81 % [facility] [id number]-Vkr 66 % [facility] FRCPleth-Pred 3.12 L [...] [facility] VA-%Pred-Pre 79 % [facility] [id number] 69 % [facility] [id number] 63 % [facility] 11/17/2024 12:3 7 PM SALES DEVELOPMENT CONSULTANT Narrative [facility] - 11/17/2024 6:36 PM SALES DEVELOPMENT CONSULTANT The FEV1, FEV1/FVC ratio, and the FEV1/FEV6 [...] the RV and RV/TLC suggests air trapping. Lola Sales MD This interpretation has been electronically signed: LOLA SALES 11/17/2024 06:33:04 PM Monika Vega MD PFT ORDERABLES Final Result [facility] * Extra Red Top Tube (11/03/2024 2:23 PM SALES DEVELOPMENT CONSULTANT) Hold Specimen [facility] 11/03/2024 3:46 PM SALES DEVELOPMENT CONSULTANT [facility] Blood STRUCTURE OF RIGHT UPPER LIMB / Unknown Venipuncture / Unknown 11/03/2024 2:23 PM SALES DEVELOPMENT CONSULTANT 11/03/2024 2:32 PM SALES DEVELOPMENT CONSULTANT Bernardino Dennis MD LAB - BLOOD ORDERABLES Fi nal Result [facility] [address] Lab (1st floor, no room number) [address] * Extra Blue Top Tube (11/03/2024 2:23 PM SALES DEVELOPMENT CONSULTANT) Hold Specimen [facility] 11/03/2024 3:46 PM SALES DEVELOPMENT CONSULTANT [facility] Blood STRUCTURE OF RIGHT UPPER LIMB / Unknown Venipuncture / Unknown 11/03/2024 2:23 PM SALES DEVELOPMENT CONSULTANT 11/03/2024 2:32 PM SALES DEVELOPMENT CONSULTANT Bernardino Dennis MD LAB - BLOOD ORDERABLES Fi nal Result [facility] [address] Lab (1st floor, no room number) [address] * (ABNORMAL) CBC with platelets and differential (11/03/2024 2:23 PM SALES DEVELOPMENT CONSULTANT) Pathologist [facility] WBC Count 14.6(H) 4.0 - 11.0 10e3/uL 11/03/2024 2:36 PM SALES DEVELOPMENT CONSULTANT [facility] RBC Count 5.05 3.80 - 5.20 10e6/uL 11/03/2024 2:36 PM SALES DEVELOPMENT CONSULTANT [facility] Hemoglobin 13.9 11.7 - 15.7 g/dL 11/03/2024 2:36 PM SALES DEVELOPMENT CONSULTANT [facility] Hematocrit 44.0 35.0 - 47.0 % 11/03/2024 2:36 PM SALES DEVELOPMENT CONSULTANT [facility] MCV 87 78 - 100 fL 11/03/2024 2:36 PM SALES DEVELOPMENT CONSULTANT [facility] MCH 27.5 26.5 - 33.0 pg 11/03/2024 2:36 PM SALES DEVELOPMENT CONSULTANT [facility] MCHC 31.6 31.5 - 36.5 g/dL 11/03/2024 2:36 PM SALES DEVELOPMENT CONSULTANT [facility] RDW 14.9 10.0 - 15.0 % 11/03/2024 2:36 PM SALES DEVELOPMENT CONSULTANT [facility] Platelet Count 360 150 - 450 10e3/uL 11/03/2024 2:36 PM SALES DEVELOPMENT CONSULTANT [facility] % Neutrophils 70 % 11/03/2024 2:36 PM SALES DEVELOPMENT CONSULTANT [facility] % Lymphocytes 22 % 11/03/2024 2:36 PM SALES DEVELOPMENT CONSULTANT [facility] % Monocytes 5 % 11/03/2024 2:36 PM SALES DEVELOPMENT CONSULTANT [facility] % Eosinophils 1 % 11/03/2024 2:36 PM SALES DEVELOPMENT CONSULTANT [facility] % Basophils 1 % 11/03/2024 2:36 PM SALES DEVELOPMENT CONSULTANT [facility] % Immature Granulocytes 1 % 11/03/2024 2:36 PM SALES DEVELOPMENT CONSULTANT [facility] NRBCs per 100 WBC 0 <1 /100 024 2:36 PM SALES DEVELOPMENT CONSULTANT [facility] Absolute Neutrophils 10.2(H) 1.6 - 8.3 10e3/uL 11/03/2024 2:36 PM SALES DEVELOPMENT CONSULTANT [facility] Absolute Lymphocytes 3.2 0.8 - 5.3 10e3/uL 11/03/2024 2:36 PM SALES DEVELOPMENT CONSULTANT [facility] Absolute Monocytes 0.8 0.0 - 1.3 10e3/uL 11/03/2024 2:36 PM SALES DEVELOPMENT CONSULTANT [facility] Absolute Eosinophils 0.2 0.0 - 0.7 10e3/uL 11/03/2024 2:36 PM SALES DEVELOPMENT CONSULTANT [facility] Absolute Basophils 0.1 0.0 - 0.2 10e3/uL 11/03/2024 2:36 PM SALES DEVELOPMENT CONSULTANT [facility] Absolute Immature Granulocytes 0.2 <=0.4 10e3/uL 11/03/2024 2:36 PM SALES DEVELOPMENT CONSULTANT [facility] Absolute NRBCs 0.0 10e3/uL 11/03/2024 2:36 PM SALES DEVELOPMENT CONSULTANT [facility] Blood STRUCTURE OF RIGHT UPPER LIMB / Unknown Venipuncture / Unknown 11/03/2024 2:23 PM SALES DEVELOPMENT CONSULTANT 11/03/2024 2:32 PM SALES DEVELOPMENT CONSULTANT Bernardino Dennis MD LAB - BLOOD ORDERABLES Fi nal Result [facility] Lab [address] Lab (1st floor, no room number) [place] [address] * Troponin T, High Sensitivity (11/03/2024 2:23 PM SALES DEVELOPMENT CONSULTANT) Troponin T, High Sensitivity 11 <=14 ng/L 11/03/2024 3:00 PM SALES DEVELOPMENT CONSULTANT LABORATORY Comment: Either a High Sensitivity Troponin T baseline (0 hours) value = 100 ng/L, or an increase in High Sensitivity Troponin T = 7 ng/L at 2 hours compared to 0 hours (2-0 hours), suggests myocardial injury, and urgent clinical attention is required. If the 2-0 hours increase is <7 ng/L, a High Sensitivity Troponin T result above gender-specific reference ranges warrants further evaluation. Recommendations for further evaluation include correlation with clinical decision-making tool (e.g., HEART), a 3rd High Sensitivity Troponin T test 2 hours after the 2nd (a 20% change from baseline would represent concern), admission for observation, close PCC/cardiology follow-up, or urgent outpatient provocative testing. Blood STRUCTURE OF RIGHT UPPER LIMB / Unknown Venipuncture / Unknown 11/03/2024 2:23 PM SALES DEVELOPMENT CONSULTANT 11/03/2024 2:32 PM SALES DEVELOPMENT CONSULTANT Bernardino Dennis MD LAB - BLOOD ORDERABLES Fi nal Result [facility] Lab [address] Lab (1st floor, no room number) [place] [address], [facility] * (ABNORMAL) INR (11/03/2024 2:23 PM SALES DEVELOPMENT CONSULTANT) INR 2.24(H) 0.85 - 1.15 11/03/2024 4:43 PM SALES DEVELOPMENT CONSULTANT LABORATORY Blood STRUCTURE OF RIGHT UPPER LIMB / Unknown Venipuncture / Unknown 11/03/2024 2:23 PM SALES DEVELOPMENT CONSULTANT 11/03/2024 2:32 PM SALES DEVELOPMENT CONSULTANT us Bernardino Dennis MD LAB - BLOOD ORDERABLES Fi nal Result [facility] Acute Care Lab [address] Lab (1st floor, no room number) [place] [address] * D dimer quantitative (11/03/2024 2:23 PM SALES DEVELOPMENT CONSULTANT) D-Dimer Quantitative <0.27 0.00 - 0.50 ug/mL FEU 11/03/2024 4:46 PM SALES DEVELOPMENT CONSULTANT LABORATORY Blood STRUCTURE OF RIGHT UPPER LIMB / Unknown Venipuncture / Unknown 11/03/2024 2:23 PM SALES DEVELOPMENT CONSULTANT 11/03/2024 2:32 PM SALES DEVELOPMENT CONSULTANT Narrative LABORATORY - 11/03/2024 4:46 PM SALES DEVELOPMENT CONSULTANT This D-dimer assay is intended for use in conjunction with a clinical pretest probability assessment model to exclude pulmonary embolism (PE) and deep venous thrombosis (DVT) in outpatients suspected of PE or DVT. The cut-off value is 0.50 ug/mL FEU. For patients 50 years of age or older, the application of age-adjusted cut-off values for D-Dimer may increase the specificity without significant effect on sensitivity. The literature suggested calculation age adjusted cut-off in ug/L = age in years x 10 ug/L. The results in this laboratory are reported as ug/mL rather than ug/L. The calculation for age adjusted cut off in ug/mL= age in years x 0.01 ug/mL. For example, the cut off for a 76 year old male is 74 x 0.01 ug/mL = 0.76 ug/mL (760 ug/L). Lissy Martinez et al. Age adjusted D-dimer cut-off levels to rule out pulmonary embolism: The ADJUST-PE Study. ANT 2014;311:7597-4280.; HJ Margarette et al. Diagnostic accuracy of conventional or age adjusted D-dimer cutoff values in older patients with suspected venous thromboembolism. Systemic review and meta-analysis. BMJ 2013:346:f2492. us Bernardino Dennis MD LAB - BLOOD ORDERABLES Fi nal Result LABORATORY [facility] Acute Care Lab [address] Lab (1st floor, no room number) [place] [address], [facility] * (ABNORMAL) Basic metabolic panel (11/03/2024 2:23 PM SALES DEVELOPMENT CONSULTANT) Pathologist [facility] Sodium 138 135 - 145 mmol/L 11/03/2024 3:00 PM SALES DEVELOPMENT CONSULTANT LABORATORY Potassium 3.7 3.4 - 5.3 mmol/L 11/03/2024 3:00 PM SALES DEVELOPMENT CONSULTANT LABORATORY Chloride 99 98 - 107 mmol/L 11/03/2024 3:00 PM [facility] Carbon Dioxide (CO2) 25 22 - 29 mmol/L 11/03/2024 3:00 PM SALES DEVELOPMENT CONSULTANT LABORATORY Anion Gap 14 7 - 15 mmol/L 11/03/2024 3:00 PM SALES DEVELOPMENT CONSULTANT LABORATORY Urea Nitrogen 11.9 6.0 - 20.0 mg/dL 11/03/2024 3:00 PM SALES DEVELOPMENT CONSULTANT LABORATORY Creatinine 0.71 0.51 - 0.95 mg/dL 11/03/2024 3:00 PM SALES DEVELOPMENT CONSULTANT LABORATORY GFR Estimate >90 >60 mL/min/1.7 3m2 11/03/2024 3:00 PM SALES DEVELOPMENT CONSULTANT LABORATORY Comment:eGFR calculated usin 2020 CKD-EPI equation. Calcium 9.5 8.8 - 10.4 mg/dL 11/03/2024 3:00 PM SALES DEVELOPMENT CONSULTANT LABORATORY Comment:Reference intervals for this test were updated on 05/30/2024 to reflect our healthy population more accurately. There may be differences in the flagging of prior results with similar values performed with this method. Those prior results can be interpreted in the context of the updated reference intervals. Glucose 122(H) 70 - 99 mg/dL 11/03/2024 3:00 PM SALES DEVELOPMENT CONSULTANT LABORATORY Blood STRUCTURE OF RIGHT UPPER LIMB / Unknown Venipuncture / Unknown 11/03/2024 2:23 PM SALES DEVELOPMENT CONSULTANT 11/03/2024 2:32 PM SALES DEVELOPMENT CONSULTANT us Bernardino Dennis MD LAB - BLOOD ORDERABLES Fi nal Result [facility] Lab [address] Lab (1st floor, no room number) [place] [address] * EKG 12-lead, tracing only (11/03/2024 2:13 PM SALES DEVELOPMENT CONSULTANT) Systolic Blood Pressure mmHg RADIOLOGY RESULTS Diastolic Blood Pressure mmHg RADIOLOGY RESULTS Ventricular Rate 80 BPM RAD IOLOGY RESULTS Atrial Rate 80 BPM RADIOLOG Y RESULTS MT Interval 132 ms RADIOLOG Y RESULTS QRS Duration 86 ms RADIOLO GY RESULTS QT 396 ms RADIOLOGY RESULTS QTc 456 ms RADIOLOGY RESULTS P [place] 34 degrees RADIOLOGY RESULTS R AXIS 60 degrees RADIOLOGY RESULTS T [place] 41 degrees RADIOLOGY RESULTS Interpretation ECG Sinus rhythm with occasional Premature ventricular complexes Otherwise normal ECG When compared with ECG of 30-Apr-2003 09:46, Premature ventricular complexes are now Present Unconfirmed report - interpretation of this ECG is computer generated - see medical record for final interpretation Confirmed by - EMERGENCY ROOM, PHYSICIAN ([id number]), food expeditor NAYLA MENDOSA ([id number]) on 11/03/2024 3:50:45 PM RADIOLOGY RESULTS 11/03/2024 2:13 PM SALES DEVELOPMENT CONSULTANT 11/03/2024 3:50 PM SALES DEVELOPMENT CONSULTANT Result [facility] Bernardino Dennis MD ECG ORDERABLES Edited Re sult - Final RADIOLOGY RESULTS * Xray Imaging - HIM Scan (11/03/2024 12:00 AM SALES DEVELOPMENT CONSULTANT) Anatomical Region Laterality Modality Other 11/03/2024 Provider Outside IMG DIAGNOSTIC IMAGING ORDERABL ES Final Result * CT Imaging - HIM Scan (11/03/2024 12:00 AM SALES DEVELOPMENT CONSULTANT) Anatomical Region Laterality Modality Computed Tomogra phy 11/03/[address] ORDERABLES Final Result * Lab Result - HIM Scan (10/09/2024 12:00 AM SALES DEVELOPMENT CONSULTANT) 10/09/2024 us Provider Outside [facility] NON-BEAKER LAB TESTING Final Result * EKG Cardiac - HIM Scan (10/09/2024 12:00 AM SALES DEVELOPMENT CONSULTANT) 10/09/2024 us Provider Outside ECG ORDERABLES Final Result from Last 3 Months Insurance [facility] [employer] [facility] [employer] Care Teams Catering Barista Relationship Specialty Start Date End Date Luis Manuel Shine PA-C [facility] [id number] [place] [address] PCP - General 11/03/24
--- OUTSIDE RECORDS SUMMARY | 2024-12-08 10:47 | XMS_ITS | Clinical Summary ---
Author Organization [facility] Address [place], [place] [address] Care Team Providers Care Account Support Associate Name Role Phone Unavailable Primary Care Provider Unavailabl e Allergies Active Allergy Reactions Criticality Noted Date Comments Sulfa (Sulfonamide Antibiotics) Hives 03/15 Medications lisinopril-hydro chlorothiazide (10-12.5 mg) tablet (PRINZIDE; ZESTORETIC) Take 1 tablet by mouth once daily. Active prednisoLONE acetate 1% ophthalmic (ECONOPRED PLUS, PRED FORTE, OMNIPRED) suspension Place 1 Drop into left eye 4 times daily 5 mL 05/15/2014 4:58 PM CDT 05/15/2014 Active gatifloxacin 0.5% (ZYMAXID) 0.5 % ophthalmic solution Place 1 Drop into left eye 4 times daily 2.5 mL 05/15/2014 4:58 PM CDT 05/15/2014 Active ketorolac 0.4 % ophthalmic (ACULAR LS) 0.4 % ophthalmic solution Place 1 Drop into left eye 2 times daily 5 mL 05/15/2014 4:58 PM CDT 05/15/2014 Active Active Problems Problem Noted Date [...] alcohol) Alcoholic Drinks/day: 0.5 drink per month Comments No Sex and Gender Information Value Date Recorded Sex Assigned at Not on file 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 Gender Identity Not on file Sexual Orientation [...] age 18+ 1986 Hepatitis C screening for ag e 18-79 1986 Colonoscopy through age 75 2013 Lipids for age 45-75 2013 03/29/2006 Mammogram for age 45-75 2013 Tetanus booster 03/29/2016 03/29/2006 Pneumococcal series for age 50+ (1 of 1 - PCV) 2018 Zoster (shingles) series for age 50+ (1 of 2) 2018 Pap test for age 21-65 12/10/2020 8, 12/10/2017, 03/29/2006, Additional history exists COVID-19 vaccine series ( - 2023- season) 2024 Influenza for age 50-64 07/16/2024 Medical Devices Implanted Type Area Bander Hand Device Identifier Shelf Expiration Date Model / Serial / Lot Lens Iol Zcb00 22.5 - [id number] Implanted:Qty: 1 on 05/15/2014 by Torey Mcnair at [facility] Left: Eye [employer] ZCB00# / [id number] / Procedures Procedure Name Priority Date/Time Associated Diagnosis Comments CHIEF PASSENGER SHIP STEWARD/STEWARDESS THIN PREP PAP SCREEN IMAGED Routine 12/10/2017 3:20 PM ORE CRUSHING 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 LIPID PANEL Routine 03/29/2006 11:21 AM CDT Routine Gynecological Examination from Last 3 Months or Most Recently Relevant to Health Maintenance Results * CHIEF PASSENGER SHIP STEWARD/STEWARDESS THIN PREP PAP SCREEN IMAGED (12/10/2017 3:20 PM ORE CRUSHING 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) Case Report Gynecologic Cytology Report Case: [id number] Authorizing Provider: Martina Guerrier NP Collected: 12/10/2017 1520 First Screen: Sandi Mendoza Received: 12/14/2017 1431 Specimen: CHIEF PASSENGER SHIP STEWARD/STEWARDESS ThinPrep Vial Screening, Cervical/Vaginal 12/16/2017 2:11 PM ORE CRUSHING 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 [employer] Private- ENTRAL LABORATORY INTERPRETATION/ RESULT NEGATIVE FOR INTRAEPITHELIAL LESION OR MALIGNANCY (NIL) (none) 12/16/2017 2:11 PM ORE CRUSHING 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 [facility] IMEN ADEQUACY Satisfactory for evaluation Endocervical component present 12/16/2017 2:11 PM ORE CRUSHING 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 [employer] [facility] ENTRAL LABORATORY HPV REQUEST HPV and PAP 12/16/2017 2:11 PM 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 [employer] [facility] ENTRAL LABORATORY Date of LMP 12/16/2017 2:11 PM ORE CRUSHING 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 [facility] ENTRAL LABORATORY Comment:unknown Menstrual Status 12/16/2017 2:11 PM 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 ANCILLARY TESTING CHIEF PASSENGER SHIP STEWARD/STEWARDESS HPV Ordered, Please see separate report 12/16/2017 2:11 PM ORE CRUSHING 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 [facility] Note The pap test is a screening technique, not a diagnostic procedure. It is used primarily to screen for squamous cancers and precursor lesions. Published studies have shown that it is subject to both false negative and false positive results. The pap test should not be used as the sole means to diagnose or exclude pre-malignant and malignant lesions. Interpreted at [facility] ([facility], [facility], [facility], [facility], [facility], [facility], [facility]) 12/16/2017 2:11 PM ORE CRUSHING 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 [facility] ENTRAL LABORATORY Other (Cervical/Vagina l) 12/10/2017 3:20 PM ORE CRUSHING 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 12/14/2017 2:31 PM ORE CRUSHING 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 Martina Guerrier NP PATHOLOGY/CYTOLOGY Final Re sult [facility] [address] [place] [address], * LIPID PANEL (03/29/2006 11:21 AM CDT) CHOLESTEROL,TOTAL 168 110 - 199 mg/dL [facility] TRIGLYCERIDES 107 40 - 149 mg/dL [facility] HDL CHOLESTEROL 46 >40 mg/dL [facility] CHOL/HDL RATIO 3.65 <4.51 [facility] LDL CHOLESTEROL 101 <131 mg/dL [facility] PATIENT STATUS Fasting [facility] Blood specimen (specimen) BLOOD SPECIMEN / Unknown 03/29/2006 11:21 AM CDT 03/29/2006 11:19 AM CDT Ndia Hernandez MD CHEMISTRY Final Result [facility] INTERNAL ZIP [id number] [place] [phone] from Last 3 Months or Most Recently Relevant to Health Maintenance Insurance [place] [id number] Advance Directives * Full Code (Latest Code Status on File) Date Activated Date Inactivated Comments 05/15/2014 12:05 PM 05/15/2014 7:15 PM
--- OUTSIDE RECORDS SUMMARY | 2024-12-08 10:47 | XMS_ITS | Encounter Summary ---
Author Organization [facility] Address [address] [place] [id number] Care Team Providers Care Perinatal Director Name Role Phone Luis Manuel Shine PA-C Primary Care Provider [phone] Reason for Visit * Reason Onset Date Comments Previsit 11/17/2024 Encounter Details Date Type Department Care Team (Late st Contact Info) Description 11/17/2024 PRE VISIT [facility] [address] [phone] Monika Vega MD [address] [place] [id number] Previsit Social History Tobacco Use Types Packs/Day Years Used Date Smoking Tobacco: Former Cigarettes Smokeless Tobacco: Never Comments No Sex and Gender Information Value Date Recorded Sex Assigned at Not on file 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 Gender Identity Not on file Sexual Orientation Not on file documented as of this encounter Miscellaneous Notes * Telephone Encounter - Guerline Sims - 11/13/2024 11:14 AM CST RECORDS RECEIVED FROM: Internal/External DATE RECEIVED: 11/17/24 NOTES STATUS DETAILS OFFICE NOTE from referring provider Internal Hospital f/u OFFICE NOTE from other specialist N/A DISCHARGE SUMMARY from hospital N/A DISCHARGE REPORT from the ER Internal 11-03-24 MEDICATION LIST Internal IMAGING (NEED IMAGES AND REPORTS) CT SCAN Received 11-03-24, 09-22-24 in PACS CHEST XRAY (CXR) Received 10-09-28, 11-8-24 in PACS TESTS PULMONARY FUNCTION TESTING (PFT) In process Scheduled prior to appt SSMENT NURSE PRACTITIONER documented in this encounter Plan of Treatment Upcoming Encounters Date Type Department Care Team (Late st Contact Info) Description 03/30/2025 2:00 PM CDT Office Visit [facility] Pulmonary Function Testing [address] [phone] 03/30/2025 2:30 PM CDT Office Visit [facility] Pul[facility] Function Testing [address] [phone] 03/30/2025 3:00 PM CDT Office Visit [facility] and [address] [phone] Monika Vega MD [address] [place] [phone] documented as of this encounter Visit Diagnoses Not on filedocumented in this encounter Care Teams Perinatal Director Relationship Specialty Start Date End Date Luis Manuel Shine PA-C [place] [id number] [place] [address] PCP - General 11/03/24 documented as of this encounter
--- OUTSIDE RECORDS SUMMARY | 2024-12-08 10:47 | XMS_ITS | Encounter Summary ---
Author Organization [facility] Address [address] [place] [id number] Care Team Providers Care Staff Pharmacist Name Role Phone Luis Manuel Shine PA-C Primary Care Provider [phone] Reason for Referral * Consultation (Priority: 1-2 Weeks) - Pending Review Specialty Diagnoses / Procedures Referred By Walter lane Referred To Contact Pulmonary Disease Diagnoses Small airways disease Bernardino Dennis MD [facility] [place] [address] [place] [address] Phone: tel: fax: Referral ID Status Reason Start Date Expiration Date V isits Requested Visits Authorized [id number] Pending Review 11/03/2024 11/03/2025 1 1 Question Answer Reason for Referral: ILD/Pulmonary Fibrosis Scheduling Instructions: [facility] will call you to coordinate your care as prescribed by the provider. If you don t hear from a open claims representative within 2 business days, please call . Comments Please be aware that coverage of these services is subject to the terms and limitations of your health insurance plan. Call member services at your health plan with any benefit or coverage questions. [facility] will call you to coordinate your care as prescribed by the provider. If you don t hear from a open claims representative within 2 business days, please call . CLERK Reason for Visit * Reason Comments Cough Shortness of Breath Encounter Details Date Type Department Care Team (Late st Contact Info) Description 11/03/2024 3:21 PM BOND CLERK - 11/03/2024 6:42 PM BOND CLERK Emergency [facility] Emergency Dept [address] [place] [address] [phone] Bernardino Dennis MD [facility] [address] [place] [address] Small airways disease Discharge Disposition: Home or Self Care Social History Tobacco Use Types Packs/Day Years Used Date Smoking Tobacco: Never Assessed Comments No Sex and Gender Information Value Date Recorded Sex Assigned at Not on file Legal Sex Female 4:24 AM BOND CLERK Gender Identity Not on file Sexual Orientation Not on file documented as of this encounter Last Filed Vital Signs Vital Sign Reading Time Taken Comments Blood Pressure 159/114 11/03/2024 1:55 PM BOND CLERK Pulse 89 11/03/2024 1:55 PM BOND CLERK Temperature 36.4 C (97.5 F) 11/03/2024 1:55 PM BOND CLERK Respiratory Rate 22 11/03/2024 1:55 PM BOND CLERK Oxygen Saturation 97% 11/03/2024 1:55 PM BOND CLERK Inhaled Oxygen Concentration - - Weight 136.5 kg (300 lb 14.9 oz) 11/03/2024 1:55 PM BOND CLERK Height 170.2 cm (5' 7) 11/03/2024 1:55 PM BOND CLERK Body Mass Index 47.13 11/03/2024 1:55 PM BOND CLERK documented in this encounter Discharge Instructions * Discharge Instructions* Bernardino Dennis MD - 11/03/2024 6:31 PM BOND CLERK You were seen today for your cough that's been ongoing for almost 3 months. It is unlikely to be infectious given multiple rounds of antibiotics without improvement. The CT today did not show pneumonia, but showed small airway disease which can be allergic, infectious, due to lung disease such aspulmonary fibrosis, versus many other causes. I suspect the improvement you been experiencing has been more due to the steroids rather than the antibiotics. Your next step is seeing a chummer who would likely recommend a bronchoscopy for further evaluation. I placed a referral for [facility] pulmonology. Follow-up with whoever can see you the soonest. Return to emergency department for fever greater than 100.4, shortness of breath, worsening pain, or for any other concerns. CLERK * Attachments The following attachments cannot be sent through Care Everywhere. * Bronchoscopy: Video (Kenyan) documented in this encounter Medications at Time of Discharge albuterol (PROAIR HFA/PROVENTIL HFA/VENTOLIN HFA) 108 (90 Base) MCG/ACT inhaler INHALE 2 PUFFS EVERY 6 HOURS NEEDED FOR SHORTNESS OF BREATH OR WHEEZING 10/23/2024 warfarin ANTICOAGULANT (COUMADIN) 5 MG tablet Take 1 tablet by mouth daily at 2 pm. 10/31/2024 predniSONE (DELTASONE) 20 MG tablet Take 2 tablets (40 mg) by mouth daily for 5 days, THEN 1 tablet (20 mg) daily for 5 days, THEN 0.5 tablets (10 mg) daily for 4 days. 17 tablet 11/03/2024 documented as of this encounter ED Notes * Mara Boudreaux RN - 11/03/2024 6:42 PM CST All patient questions answered, no further questions at this time. Discharge paperwork reviewed with patient. Patient verbalized understanding of discharge teaching, medications, when to return, and the importance of follow up. Patient verbalizes feeling safe to return home. CLERK * Bernardino Dennis MD - 11/03/2024 3:54 PM CST Emergency Department Note History of Present Illness Chief Complaint Cough and Shortness of Breath HPI Radha Amanda is a 54 year old female with history of Factor V Leiden anticoagulated on Warfarin who presents to the ED with a male landmen for evaluation of cough and shortness of breath. Patient presents with multiple complaints including productive cough, pharyngitis, back pain, jaw line pain, and headache. Radha reports she is coughing up green phlegm and the symptoms started at the beginning of August, initially as a productive cough. She does note she was sick with a diarrheal illness with vomiting the week before her 09/12/24 physical and she lost 10 pounds as she could not tolerate PO. Her PCP found fluid in her left ear and started her on Augmentin with initial improvement before symptoms returned. 09/22/24, she had a Chest X-Ray revealing pneumonia, started on Z Clyde in addition to the Augmentin. Radha also had an abdominal CT for severe abdominal pain and stool sample cameback positive for salmonella. She then started prednisone and symptoms were again better before shewas worse again. Patient has tried a 2 week doxycycline course, prednisone, and has used her albuterol inhaler with no relief. She finished all medications this week. CT earlier this morning showed small airway disease. Patient endorses bilateral neck and back pain and lung irritation. She denies personal history of asthma, COPD, smoking, or PE/DVT. No new allergens, known sick contacts, or occupational exposures. Last day of steroids was 2 days ago. Of note, patient has been seen multiple times by her PCP and at [facility]. Independent Historian None Review of External Notes I reviewed [facility] Fax records. Noncontrast CT Chest from today. Impression: Multifocal bilateral small airway disease, differential diagnosis includes hypersensitivity pneumonitis, respiratory bronchiolitis interstitial lung disease, or connective tissue diseases among othercauses. Pulmonology referral recommended. Past Medical History Medical History and Problem List Obesity Generalized nonconvulsive epilepsy Cataract Factor V Leiden Medications Lisinopril-hydrochlorothiazide Warfarin Surgical History Gastric bypass Cystoscopy Tonsillectomy & adenoidectomy Olar teeth extraction section Physical Exam Patient Vitals for the past 24 hrs: BP Temp Temp src Pulse Resp SpO2 Height Weight 11/03/24 1355 (!) 159/114 97.5 ??F (36.4 ??C) Oral 89 22 97 % 1.702 m (5' 7) 136.5 kg (300 lb 14.9oz) Physical Exam Nursing note and vitals reviewed. HENT: Mouth/Throat: Moist mucous membranes. Eyes: EOMI, nonicteric sclera Cardiovascular: Normal rate, regular rhythm, no murmurs, rubs, or gallops Pulmonary/Chest: Effort normal and breath sounds normal. No respiratory distress. No wheezes. No rales. Musculoskeletal: Normal range of motion. Neurological: Alert. Moves all extremities spontaneously. Skin: Skin is warm and dry. No rash noted. Diagnostics Lab Results Labs Ordered and Resulted from Time of ED Arrival to Time of ED Departure BASIC METABOLIC PANEL - Abnormal Result Value Sodium 138 Potassium 3.7 Chloride 99 Carbon Dioxide (CO2) 25 Anion Gap 14 Urea Nitrogen 11.9 Creatinine 0.71 GFR Estimate >90 Calcium 9.5 Glucose 122 (*) CBC WITH PLATELETS AND DIFFERENTIAL - Abnormal WBC Count 14.6 (*) RBC Count 5.05 Hemoglobin 13.9 Hematocrit 44.0 MCV 87 MCH 27.5 MCHC 31.6 RDW 14.9 Platelet Count 360 % Neutrophils 70 % Lymphocytes 22 % Monocytes 5 % Eosinophils 1 % Basophils 1 % Immature Granulocytes 1 NRBCs per 100 WBC 0 Absolute Neutrophils 10.2 (*) Absolute Lymphocytes 3.2 Absolute Monocytes 0.8 Absolute Eosinophils 0.2 Absolute Basophils 0.1 Absolute Immature Granulocytes 0.2 Absolute NRBCs 0.0 INR - Abnormal INR 2.24 (*) TROPONIN T, HIGH SENSITIVITY - Normal Troponin T, High Sensitivity 11 D DIMER QUANTITATIVE - Normal D-Dimer Quantitative <0.27 Imaging No orders to display EKG ECG results from 11/03/24 EKG 12-lead, tracing only Value Systolic Blood Pressure Diastolic Blood Pressure Ventricular Rate 80 Atrial Rate 80 [place] Interval 132 QRS Duration 86 QT 396 QTc 456 P [place] 34 R AXIS 60 T [place] 41 Interpretation ECG Sinus rhythm with occasional Premature ventricular complexes Otherwise normal ECG When compared with ECG of 30-Apr-2003 09:46, Premature ventricular complexes are now Present Independent Interpretation None ED Course Medications Administered Medications - No data to display Procedures Procedures Discussion of Management None ED Course ED Course as of 11/03/24 1834 WedNov 03, 2024 1558 I obtained history and examined the patient as noted above. 182 I rechecked the patient and explained findings. I discussed plan for discharge and patient is agreeable with that plan. Additional Documentation None Medical Decision Making / Diagnosis [facility] Diagnoses: None MIPS None MDM Radha Amanda is a 54 year old female who presents with cough for almost 3 months. With ongoing chest tightness and cough she presents to the emergency department today after outpatient CT today showed small airway disease. She is concerned for cardiac pathology or PE. Fortunately, D-dimer is negative ruling out PE. Troponin negative as well. Given CT finding of small airway disease, this is most likely etiology for persistent cough. She has been on multiple rounds of antibiotics without relief, therefore doubt that this is bacterial. May be an atypical infection, but will require evaluation by pulmonology. May also be interstitial lung disease such as pulmonary fibrosis or autoimmune. Most of these will improve with steroids, and patient does report improvement while on steroids recently. 2-week taper prescribed. I also referred her to see pulmonology within [facility] system. She has already been referred within her home network as well. No hypoxia. No further indication for emergent workup. She is safe for discharge for ongoing outpatient evaluation. She is in stable condition atthe time of discharge, red flags that should merit ED return were discussed as well as recommended follow-up instructions. All questions were answered and she is in agreement with the plan. Disposition The patient was discharged. Diagnosis ICD-10-CM 1. Small airways disease J98.4 Adult Pulmonary Medicine Floral Designer Referral Discharge Medications New Prescriptions PREDNISONE (DELTASONE) 20 MG TABLET Take 2 tablets (40 mg) by mouth daily for 5 days, THEN 1 tablet(20 mg) daily for 5 days, THEN 0.5 tablets (10 mg) daily for 4 days. Scribe Disclosure: Frida, Marianna Dunbar, am serving as a scribe at 4:10 PM on 11/03/2024 to document services personally performed by Bernardino Dennis MD based on my observations and the provider's statements to me. Bernardino Dennis MD 11/05/24 0548 CLERK * Alexandra Bar RN - 11/03/2024 1:57 PM CST Pt here per PCP for multiple complaints. Pt reports she has had cough, sob, intermittent chest/back/unilateral should pain, and general malaise since August. Has been evaluated multiple times by herPCP and at the [facility]. Has been on multiple courses of antibiotics and steroids. At one point, pt was dx w/ salmonella. Pt had a non-con chest CT today that showed multifocal small airway disease per pt. Hx of factor 5. On warfarin. No missed doses. Reports she has not had a fever atall. Does endorse some night sweats and chills. In triage, pt is afebrile. Breathing is easy and unlabored. CLERK documented in this encounter Plan of Treatment Upcoming Encounters Date Type Department Care Team (Late st Contact Info) Description 03/30/2025 2:00 PM CDT Office Visit [facility] Pulmonary Function Testing [address] [phone] 03/30/2025 2:30 PM CDT Office Visit [facility] Pulmonary Function Testing [address] [phone] 03/30/2025 3:00 PM CDT Office Visit [facility] [address] [phone] Monika Vega MD [address] [place] [phone] Scheduled Referrals Name Type Priority Associated Diagnoses Orde r Schedule Adult Pulmonary Medicine Floral Designer Referral Referral Priority: 1-2 Weeks Small airways disease Expected: 11/03/2024 (Approximate), Expires: 11/03/2025 documented as of this encounter Procedures Procedure Name Priority Date/Time Associated Diagnosis Comments EXTRA TUBE STAT 11/03/2024 2:23 PM BOND CLERK EXTRA RED TOP TUBE STAT 11/03/2024 2: 23 PM BOND CLERK EXTRA BLUE TOP TUBE STAT 11/03/2024 2 :23 PM BOND CLERK CBC WITH PLATELETS AND DIFFERENTIAL STAT 11/03/2024 2:23 PM BOND CLERK TROPONIN T, HIGH SENSITIVITY STAT 11/03/2024 2:23 PM BOND CLERK CBC WITH PLATELETS & DIFFERENTIAL STAT 11/03/2024 2:23 PM BOND CLERK INR STAT 11/03/2024 2:23 PM BOND CLERK D DIMER QUANTITATIVE STAT 11/03/2024 2:23 PM BOND CLERK BASIC METABOLIC PANEL STAT 11/03/2024 2:23 PM BOND CLERK EKG 12-LEAD, TRACING ONLY STAT 11/03/2024 2:13 PM BOND CLERK documented in this encounter Results * D dimer quantitative (11/03/2024 2:23 PM BOND CLERK) D-Dimer Quantitative <0.27 0.00 - 0.50 ug/mL FEU 11/03/2024 4:46 PM BOND CLERK [facility] Blood STRUCTURE OF RIGHT UPPER LIMB / Unknown Venipuncture / Unknown 11/03/2024 2:23 PM BOND CLERK 11/03/2024 2:32 PM BOND CLERK [facility] - 11/03/2024 4:46 PM BOND CLERK This D-dimer assay is intended for use [...] 0.01 ug/mL = 0.76 ug/mL (760 ug/L). M Roberhiramírez et al. Age adjusted D-dimer cut-off levels to rule out pulmonary embolism: The ADJUST-PE Study. ANT 2014;311:3870-7299.; LYRIC Pfeiffer et al. Diagnostic accuracy of conventional or age adjusted D-dimer cutoff values in older patients with suspected venous thromboembolism. Systemic review and meta-analysis. BMJ 2013:346:f2492. Bernardino Dennis MD LAB - BLOOD ORDERABLES Fi nal Result [facility] [address] Lab (1st floor, no room number) [place] [phone] [place] [address] * (ABNORMAL) INR (11/03/2024 2:23 PM BOND CLERK) INR 2.24(H) 0.85 - 1.15 11/03/2024 4:43 PM BOND CLERK [facility] Blood STRUCTURE OF RIGHT UPPER LIMB / Unknown Venipuncture / Unknown 11/03/2024 2:23 PM BOND CLERK 11/03/2024 2:32 PM BOND CLERK us Bernardino Dennis MD LAB - BLOOD ORDERABLES Fi nal Result Performing Organization Address City/[facility]/ZIP Co de Phone Number [facility] Lab [address] Lab (1st floor, no room number) [place] [phone] [place] [address] * Extra Red Top Tube (11/03/2024 2:23 PM BOND CLERK) Hold Specimen [facility] 11/03/2024 3:46 PM BOND CLERK [facility] Blood STRUCTURE OF RIGHT UPPER LIMB / Unknown Venipuncture / Unknown 11/03/2024 2:23 PM BOND CLERK 11/03/2024 2:32 PM BOND CLERK us Bernardino Dennis MD LAB - BLOOD ORDERABLES Fi nal Result Performing Organization Address City/[facility]/ZIP Co de Phone Number [facility] [address] Lab (1st floor, no room number) [place] [phone] [place] [address] * Extra Blue Top Tube (11/03/2024 2:23 PM BOND CLERK) Hold Specimen [facility] 11/03/2024 3:46 PM BOND CLERK [facility] Blood STRUCTURE OF RIGHT UPPER LIMB / Unknown Venipuncture / Unknown 11/03/2024 2:23 PM BOND CLERK 11/03/2024 2:32 PM BOND CLERK us Bernardino Dennis MD LAB - BLOOD ORDERABLES Fi nal Result [facility] Acute Care Lab [address] Lab (1st floor, no room number) [place] [address], [facility] * (ABNORMAL) CBC with platelets and differential (11/03/2024 2:23 PM BOND CLERK) WBC Count 14.6(H) 4.0 - 11.0 10e3/uL 11/03/2024 2:36 PM BOND CLERK [facility] RBC Count 5.05 3.80 - 5.20 10e6/uL 11/03/2024 2:36 PM BOND CLERK [facility] Hemoglobin 13.9 11.7 - 15.7 g/dL 11/03/2024 2:36 PM BOND CLERK [facility] Hematocrit 44.0 35.0 - 47.0 % 11/03/2024 2:36 PM BOND CLERK [facility] MCV 87 78 - 100 fL 11/03/2024 2:36 PM BOND CLERK [facility] MCH 27.5 26.5 - 33.0 pg 11/03/2024 2:36 PM BOND CLERK [facility] MCHC 31.6 31.5 - 36.5 g/dL 11/03/2024 2:36 PM BOND CLERK [facility] RDW 14.9 10.0 - 15.0 % 11/03/2024 2:36 PM BOND CLERK [facility] Platelet Count 360 150 - 450 10e3/uL 11/03/2024 2:36 PM BOND CLERK [facility] % Neutrophils 70 % 11/03/2024 2:36 PM BOND CLERK [facility] % Lymphocytes 22 % 11/03/2024 2:36 PM BOND CLERK [facility] % Monocytes 5 % 11/03/2024 2:36 PM BOND CLERK [facility] % Eosinophils 1 % 11/03/2024 2:36 PM BOND CLERK [facility] % Basophils 1 % 11/03/2024 2:36 PM BOND CLERK [facility] % Immature Granulocytes 1 % 11/03/2024 2:36 PM BOND CLERK [facility] NRBCs per 100 WBC 0 <1 /100 024 2:36 PM BOND CLERK [facility] Absolute Neutrophils 10.2(H) 1.6 - 8.3 10e3/uL 11/03/2024 2:36 PM BOND CLERK [facility] Absolute Lymphocytes 3.2 0.8 - 5.3 10e3/uL 11/03/2024 2:36 PM BOND CLERK LABORATORY Absolute Monocytes 0.8 0.0 - 1.3 10e3/uL 11/03/2024 2:36 PM BOND CLERK LABORATORY Absolute Eosinophils 0.2 0.0 - 0.7 10e3/uL 11/03/2024 2:36 PM BOND CLERK [facility] Absolute Basophils 0.1 0.0 - 0.2 10e3/uL 11/03/2024 2:36 PM BOND CLERK LABORATORY Absolute Immature Granulocytes 0.2 <=0.4 10e3/uL 11/03/2024 2:36 PM BOND CLERK LABORATORY Absolute NRBCs 0.0 10e3/uL 11/03/2024 2:36 PM BOND CLERK LABORATORY Blood STRUCTURE OF RIGHT UPPER LIMB / Unknown Venipuncture / Unknown 11/03/2024 2:23 PM BOND CLERK 11/03/2024 2:32 PM BOND CLERK us Bernardino Dennis MD LAB - BLOOD ORDERABLES Fi nal Result LABORATORY [facility] Acute Care Lab [address] [facility] Lab (1st floor, no room number) [place] [address], [facility] * Troponin T, High Sensitivity (11/03/2024 2:23 PM BOND CLERK) Troponin T, High Sensitivity 11 <=14 ng/L 11/03/2024 3:00 PM BOND CLERK [facility] Comment: Either a High Sensitivity Troponin [...] Unknown Venipuncture / Unknown 11/03/2024 2:23 PM BOND CLERK 11/03/2024 2:32 PM BOND CLERK Bernardino Dennis MD LAB - BLOOD ORDERABLES Fi nal Result [facility] Acute Care Lab [address] Lab (1st floor, no room number) [place] [address] * (ABNORMAL) Basic metabolic panel (11/03/2024 2:23 PM BOND CLERK) Sodium 138 135 - 145 mmol/L 11/03/2024 3:00 PM [facility] Potassium 3.7 3.4 - 5.3 mmol/L 11/03/2024 3:00 PM [facility] Chloride 99 98 - 107 mmol/L 11/03/2024 3:00 PM [facility] Carbon Dioxide (CO2) 25 22 - 29 mmol/L 11/03/2024 3:00 PM [facility] Anion Gap 14 7 - 15 mmol/L 11/03/2024 3:00 PM [facility] Urea Nitrogen 11.9 6.0 - 20.0 mg/dL 11/03/2024 3:00 PM [facility] Creatinine 0.71 0.51 - 0.95 mg/dL 11/03/2024 3:00 PM [facility] GFR Estimate >90 >60 mL/min/1.7 3m2 11/03/2024 3:00 PM [facility] Comment:eGFR calculated usin 2020 CKD-EPI equation. Calcium 9.5 8.8 - 10.4 mg/dL 11/03/2024 3:00 PM BOND CLERK LABORATORY Comment:Reference intervals for this test were updated on 05/30/2024 to reflect our healthy population more accurately. There may be differences in the flagging of prior results with similar values performed with this method. Those prior results can be interpreted in the context of the updated reference intervals. Glucose 122(H) 70 - 99 mg/dL 11/03/2024 3:00 PM BOND CLERK LABORATORY Blood STRUCTURE OF RIGHT UPPER LIMB / Unknown Venipuncture / Unknown 11/03/2024 2:23 PM BOND CLERK 11/03/2024 2:32 PM BOND CLERK us Bernardino Dennis MD LAB - BLOOD ORDERABLES Fi nal Result LABORATORY [facility] Acute Care Lab [address] Lab (1st floor, no room number) [place] [address], [facility] * EKG 12-lead, tracing only (11/03/2024 2:13 PM BOND CLERK) Systolic Blood Pressure mmHg RADIOLOGY RESULTS Diastolic Blood Pressure mmHg RADIOLOGY RESULTS Ventricular Rate 80 BPM RAD IOLOGY RESULTS Atrial Rate 80 BPM RADIOLOG Y RESULTS [place] Interval 132 ms RADIOLOG Y RESULTS QRS Duration 86 ms RADIOLO GY RESULTS QT 396 ms RADIOLOGY RESULTS QTc 456 ms RADIOLOGY RESULTS P [place] 34 degrees RADIOLOGY RESULTS R AXIS 60 degrees RADIOLOGY RESULTS T [place] 41 degrees RADIOLOGY RESULTS Interpretation ECG Sinus rhythm with occasional Premature ventricular complexes Otherwise normal ECG When compared with ECG of 30-Apr-2003 09:46, Premature ventricular complexes are now Present Unconfirmed report - interpretation of this ECG is computer generated - see medical record for final interpretation Confirmed by - EMERGENCY ROOM, PHYSICIAN ([id number]), editorial manager NAYLA MENDOSA ([id number]) on 11/03/2024 3:50:45 PM RADIOLOGY RESULTS 11/03/2024 2:13 PM BOND CLERK 11/03/2024 3:50 PM BOND CLERK us Bernardino Dennis MD ECG ORDERABLES Edited Re sult - Final RADIOLOGY RESULTS documented in this encounter Visit Diagnoses Diagnosis Small airways disease Other diseases of lung, not elsewhere classified documented in this encounter Care Teams Staff Pharmacist Relationship Specialty Start Date End Date Luis Manuel Shine PA-C [address] [place] [address] PCP - General 11/03/24 documented as of this encounter
--- OUTSIDE RECORDS SUMMARY | 2024-12-08 10:48 | XMS_ITS | Encounter Summary ---
Author Organization [facility] Address [address] [place] [id number] Care Team Providers Care Workforce Manager Name Role Phone Luis Manuel Shine PA-C Primary Care Provider [phone] Encounter Details Date Type Department Care Team (Late st Contact Info) Description 11/17/2024 3:15 PM [facility] Lab [facility] [address] [phone] ILD (interstitial lung disease) (H) Social History Tobacco Use Types Packs/Day Years Used Date Smoking Tobacco: Former Cigarettes Smokeless Tobacco: Never PHQ-2 Answer Date Recorded PHQ-2 Score 1 11/17/2024 Comments No Sex and Gender Information Value Date Recorded Sex Assigned at Not on file Legal Sex Female 4:24 AM GRAIN SACKER Gender Identity Not on file Sexual Orientation Not on file documented as of this encounter Plan of Treatment Upcoming Encounters Date Type Department Care Team (Late st Contact Info) Description 03/30/2025 2:00 PM CDT Office Visit [facility] [address] [phone] 03/30/2025 2:30 PM CDT Office Visit [facility] [address] [phone] 03/30/2025 3:00 PM CDT Office Visit [facility] [address] [phone] Monika Vega MD [address] [place] [phone] documented as of this encounter Procedures Procedure Name Priority Date/Time Associated Diagnosis Comments HYPERSENSITIVITY PNEUMONITIS 2 Routine 11/17/2024 2:30 PM GRAIN SACKER ILD (interstitial lung disease) (H) HYPERSENSITIVITY PNEUMONITIS Routine 11/17/2024 2:30 PM GRAIN SACKER ILD (interstitial lung disease) (H) documented in this encounter Results * Hypersensitivity pneumonitis (11/17/2024 2:30 PM GRAIN SACKER) Aspergillus Fumagatis 1 Antibody None Detected None Detected 11/23/2024 4:12 AM GRAIN SACKER [facility] Aspergillus Fumagatis 6 Antibody None Detected None Detected 11/23/2024 4:12 AM GRAIN SACKER [facility] Aureo Pullulans None Detected None Detected 11/23/2024 4:12 AM GRAIN SACKER [facility] Odessa serum None Detected None Detected 11/23/2024 4:12 AM GRAIN SACKER [facility] Micropolyspora Faeni None Detected None Detected 11/23/2024 4:12 AM GRAIN SACKER [facility] Comment: Testing includes antibodies directed at Aureobasidium pullulans, Aspergillus fumigatus #1, Aspergillus fumigatus #6, Micropolyspora faeni, and Odessa Serum. Performed By: [facility] [address] [place] [id number] 3Rd Grade Reading Teacher: Vijay Degroot MD, PhD CLIA Number: [id number] Blood STRUCTURE OF LEFT UPPER LIMB / Unknown Venipuncture / Unknown 11/17/2024 2:30 PM GRAIN SACKER 11/17/2024 2:30 PM GRAIN SACKER us [facility] - BLOOD ORDERABLES Final Res ult [facility] [address] [place] [phone], [facility] [phone] * Hypersensitivity Pneumonitis 2 (11/17/2024 2:30 PM GRAIN SACKER) Aspergillus flavus Ab None Detected None Detected 11/23/2024 4:12 AM GRAIN SACKER [facility] A fumigatus #2 Ab None Detected None Detected 11/23/2024 4:12 AM GRAIN SACKER [facility] A fumigatus #3 Ab None Detected None Detected 11/23/2024 4:12 AM GRAIN SACKER [facility] Saccharo viridis Ab None Detected None Detected 11/23/2024 4:12 AM GRAIN SACKER [facility] Thermo candidus Ab None Detected None Detected 11/23/2024 4:12 AM GRAIN SACKER [facility] Comment: Testing includes antibodies directed at Aspergillus flavus, Aspergillus fumigatus #2, Aspergillus fumigatus #3, Saccharomonospora viridis, and Thermoactinomyces candidus. Performed By: [facility] [address] [place] [address] [address]Rd Grade Reading Teacher: Vijay Degroot MD, PhD CLIA Number: [id number] Blood STRUCTURE OF LEFT UPPER LIMB / Unknown Venipuncture / Unknown 11/17/2024 2:30 PM GRAIN SACKER 11/17/2024 2:30 PM GRAIN SACKER us [facility] - BLOOD ORDERABLES Final Res ult [facility] [address] [place] [address], [facility] [phone] documented in this encounter Visit Diagnoses Diagnosis ILD (interstitial lung disease) (H) Postinflammatory pulmonary fibrosis documented in this encounter Care Teams Workforce Manager Relationship Specialty Start Date End Date Luis Manuel Shine PA-C [place] [id number] [place] [address] PCP - General 11/03/24 documented as of this encounter
--- OUTSIDE RECORDS SUMMARY | 2024-12-08 10:54 | XMS_ITS | Clinical Summary ---
Author Organization [facility] Address [address] [place] [address] Care Team Providers Care Acquisition Associate Name Role Phone Luis Manuel Shine PA-C Primary Care Provider [phone] Allergies Active Allergy Reactions Criticality Noted Date [...] Additional Information Patient not taking.Reported on 11/17/2024 Encounters Date Type Department Care Team Description 11/17/2024 3:15 PM [facility] [[email or web address] Lab [address] [place] [address] 1st [place] [address] ILD (interstitial lung disease) (H) 11/17/2024 2:30 PM ASSISTANT WRESTLING COACH Ancillary Procedure [facility] Xray [address] 1st [place] [phone] Small airways disease; Dyspnea, unspecified type 11/17/2024 2:00 PM ASSISTANT WRESTLING COACH Office Visit [facility] [address] [phone] Monika Vega MD Dyspnea, unspecified type (Primary Dx); Small airways disease; ILD (interstitial lung disease) (H) 11/17/2024 1:00 PM ASSISTANT WRESTLING COACH Office Visit [facility] [address] 3rd [place] [phone] Small airways disease 11/17/2024 Travel 11/17/2024 PRE VISIT [facility] [address] [phone] Monika Vega MD Previsit 11/13/2024 Orders Only [facility] [address] [phone] Urmila Crespo RN Small airways disease (Primary Dx) 11/10/2024 Telephone [facility] [address] [phone] Unknown, Provider Call To Schedule Appointment 11/03/2024 3:21 PM ASSISTANT WRESTLING COACH - 11/03/2024 6:42 PM ASSISTANT WRESTLING COACH Emergency [facility] Emergency Dept [address] [place] [address] Bernardino Dennis MD Small airways disease Discharge Disposition: Home or Self Care 11/03/2024 Travel from Last 3 Months Social History Tobacco Use Types Packs/Day Years Used Date Smoking Tobacco: Former Cigarettes Smokeless Tobacco: Never PHQ-2 Answer Date Recorded PHQ-2 Score 1 11/17/2024 Comments No Sex and Gender Information Value Date Recorded Sex Assigned at Not on file Legal Sex Female 4:24 AM ASSISTANT WRESTLING COACH Gender Identity Not on file Sexual Orientation Not on file Last Filed Vital Signs Vital Sign Reading Time Taken Comments Blood Pressure 147/86 11/17/2024 1:14 PM ASSISTANT WRESTLING COACH Pulse 77 11/17/2024 1:14 PM ASSISTANT WRESTLING COACH Temperature 36.4 C (97.5 F) 11/03/2024 1:55 PM ASSISTANT WRESTLING COACH Respiratory Rate 22 11/03/2024 1:55 PM ASSISTANT WRESTLING COACH Oxygen Saturation 92% 11/17/2024 1:14 PM ASSISTANT WRESTLING COACH Inhaled Oxygen Concentration - - Weight 140.2 kg (309 lb 1.6 oz) 11/17/2024 1:14 PM ASSISTANT WRESTLING COACH Height 170.2 cm (5' 7) 11/17/2024 1:14 PM ASSISTANT WRESTLING COACH Body Mass Index 48.41 11/17/2024 1:14 PM ASSISTANT WRESTLING COACH Plan of Treatment Upcoming Encounters Date Type Department Care Team (Late st Contact Info) Description 03/30/2025 2:00 PM CDT Office Visit [facility] [address] [phone] 03/30/2025 2:30 PM CDT Office Visit [facility] [address] [phone] 03/30/2025 3:00 PM CDT Office Visit [facility] [address] [phone] Monika Vega MD [address] [place] [phone] Health Maintenance Due Date Last Done Comments ADVANCE CARE PLANNING 1968 ANNUAL REVIEW OF HM ORDERS 1968 CT COLONOGRAPHY 1968 FIT 1968 FLEX SIG 1968 MAMMO SCREENING 1968 sDNA (Cologuard) 1968 YEARLY PREVENTIVE VISIT 1971 COLONOSCOPY 1978 COLORECTAL CANCER SCREENING 1978 HIV SCREENING 1983 HEPATITIS C SCREENING 1986 HEPATITIS B IMMUNIZATION (1 of 3 - 19+ 3-dose series) 1987 LIPID 2008 LUNG CANCER SCREENING 2018 Pneumococcal Vaccine: 50+ Years (1 of 1 - PCV) 2018 PAP 12/10/2020 12/10/2017 COVID-19 Vaccine (1 - 2023-2 5 season) 2024 INFLUENZA VACCINE (#1) 2024 10/14/2017 DTAP/TDAP/TD IMMUNIZATION (2 - Td or Tdap) 11/09/2026 11/09/2016, 03/29/2006 GLUCOSE 11/03/2027 11/03/2024 RSV VACCINE (1 - 1-dose 75+ series) 2043 ZOSTER IMMUNIZATION Completed 02/27/2020, 12/26/2019 PHQ-2 (once per calendar year) Completed 11/17/2024 HPV IMMUNIZATION Aged Out No longer e ligible based on patient's age to complete this topic MENINGITIS IMMUNIZATION Aged Out No l onger eligible based on patient's age to complete this topic RSV MONOCLONAL ANTIBODY Aged Out No l onger eligible based on patient's age to complete this topic Procedures Procedure Name Priority Date/Time Associated Diagnosis Comments HYPERSENSITIVITY PNEUMONITIS Routine 11/17/2024 2:30 PM ASSISTANT WRESTLING COACH ILD (interstitial lung disease) (H) HYPERSENSITIVITY PNEUMONITIS 2 Routine 11/17/2024 2:30 PM ASSISTANT WRESTLING COACH ILD (interstitial lung disease) (H) XR CHEST 2 VIEWS Routine 11/17/2024 2:22 PM ASSISTANT WRESTLING COACH Small airways disease Dyspnea, unspecified type WV BRONCHODILATION RESPONSE, PRE/POST ADMIN Routine 11/17/2024 12:57 PM ASSISTANT WRESTLING COACH Small airways disease WV VITAL CAPACITY TOTAL Routine 11/17/19 12:57 PM ASSISTANT WRESTLING COACH Small airways disease WV PLETHYSMOGRAPHY LUNG VOLUMES W/WO AIRWAY RESIST Routine 11/17/2024 12:57 PM ASSISTANT WRESTLING COACH Small airways disease WV DIFFUSING CAPACITY Routine 11/17/2024 12:57 PM ASSISTANT WRESTLING COACH Small airways disease PFT GENERAL LAB TESTING Routine 11/17/19 12:37 PM ASSISTANT WRESTLING COACH Small airways disease CBC WITH PLATELETS & DIFFERENTIAL STAT 11/03/2024 2:23 PM ASSISTANT WRESTLING COACH D DIMER QUANTITATIVE STAT 11/03/2024 2:23 PM ASSISTANT WRESTLING COACH INR STAT 11/03/2024 2:23 PM ASSISTANT WRESTLING COACH EXTRA RED TOP TUBE STAT 11/03/2024 2: 23 PM ASSISTANT WRESTLING COACH EXTRA BLUE TOP TUBE STAT 11/03/2024 2 :23 PM ASSISTANT WRESTLING COACH CBC WITH PLATELETS AND DIFFERENTIAL STAT 11/03/2024 2:23 PM ASSISTANT WRESTLING COACH EXTRA TUBE STAT 11/03/2024 2:23 PM ASSISTANT WRESTLING COACH TROPONIN T, HIGH SENSITIVITY STAT 11/03/2024 2:23 PM ASSISTANT WRESTLING COACH BASIC METABOLIC PANEL STAT 11/03/2024 2:23 PM ASSISTANT WRESTLING COACH EKG 12-LEAD, TRACING ONLY STAT 11/03/2024 2:13 PM ASSISTANT WRESTLING COACH XRAY IMAGING - HIM SCAN 11/03/20 12:[address] IMAGING - HIM SCAN 11/03/2024 12:00 AM ASSISTANT WRESTLING COACH LAB RESULT - HIM SCAN 10/09/2024 12:00 AM ASSISTANT WRESTLING COACH EKG CARDIAC - HIM SCAN 12:00 AM ASSISTANT WRESTLING COACH from Last 3 Months Results * Hypersensitivity Pneumonitis 2 (11/17/2024 2:30 PM ASSISTANT WRESTLING COACH) Aspergillus flavus Ab None Detected None Detected 11/23/2024 4:12 AM ASSISTANT WRESTLING COACH [facility] A fumigatus #2 Ab None Detected None Detected 11/23/2024 4:12 AM ASSISTANT WRESTLING COACH [facility] A fumigatus #3 Ab None Detected None Detected 11/23/2024 4:12 AM ASSISTANT WRESTLING COACH [facility] Saccharo viridis Ab None Detected None Detected 11/23/2024 4:12 AM ASSISTANT WRESTLING COACH [facility] Thermo candidus Ab None Detected None Detected 11/23/2024 4:12 AM ASSISTANT WRESTLING COACH [facility] Comment: Testing includes antibodies directed at Aspergillus flavus, Aspergillus fumigatus #2, Aspergillus fumigatus #3, Saccharomonospora viridis, and Thermoactinomyces candidus. Performed By: [facility] [address] [place] [id number] Equipment Operator/Laborer/Supervisor: Vijay Degroot MD, PhD CLIA Number: [id number] Blood STRUCTURE OF LEFT UPPER LIMB / Unknown Venipuncture / Unknown 11/17/2024 2:30 PM ASSISTANT WRESTLING COACH 11/17/2024 2:30 PM ASSISTANT WRESTLING COACH [facility]TO LAB - BLOOD ORDERABLES Final Res ult Performing Organization Address [facility]/ZIP Co de Phone Number [employer] [address] [place] [phone], [facility] [phone] * Hypersensitivity pneumonitis (11/17/2024 2:30 PM ASSISTANT WRESTLING COACH) Aspergillus Fumagatis 1 Antibody None Detected None Detected 11/23/2024 4:12 AM ASSISTANT WRESTLING COACH [facility] Aspergillus Fumagatis 6 Antibody None Detected None Detected 11/23/2024 4:12 AM ASSISTANT WRESTLING COACH [facility] Aureo Pullulans None Detected None Detected 11/23/2024 4:12 AM ASSISTANT WRESTLING COACH [facility] [place] serum None Detected None Detected 11/23/2024 4:12 AM ASSISTANT WRESTLING COACH [facility] Micropolyspora Faeni None Detected None Detected 11/23/2024 4:12 AM ASSISTANT WRESTLING COACH [facility] Comment: Testing includes antibodies directed at Aureobasidium pullulans, Aspergillus fumigatus #1, Aspergillus fumigatus #6, Micropolyspora faeni, and [place] Serum. Performed By: [facility] [address] [place] [id number] Equipment Operator/Laborer/Supervisor: Vijay Degroot MD, PhD CLIA Number: [id number] Blood STRUCTURE OF LEFT UPPER LIMB / Unknown Venipuncture / Unknown 11/17/2024 2:30 PM ASSISTANT WRESTLING COACH 11/17/2024 2:30 PM ASSISTANT WRESTLING COACH [facility] LAB - BLOOD ORDERABLES Final Res ult Performing Organization Address [facility]/ZIP Co de Phone Number [facility] [employer] [address] [place] [phone], [facility] [phone] * XR Chest 2 Views (11/17/2024 2:22 PM ASSISTANT WRESTLING COACH) Anatomical Region Laterality Modality Chest Digital Radiogra phy Impressions 11/17/2024 3:06 PM ASSISTANT WRESTLING COACH Impression: Similar streaky perihilar and bibasilar opacities compared to prior radiograph from 10/09/2024. No new consolidation. I have personally reviewed the examination and initial interpretation and I agree with the findings. ESTEBAN GUTHRIE MD Narrative 11/17/2024 3:06 PM ASSISTANT WRESTLING COACH Exam: XR CHEST 2 VIEWS, 11/17/2024 2:22 [...] agree with the findings. ESTEBAN GUTHRIE MD [facility] IMAlen DIAGNOSTIC IMAGING ORDERABLE S Final Result * General PFT Lab (Please always keep checked) (11/17/2024 12:37 PM ASSISTANT WRESTLING COACH) [facility] FVC-Pred 3.34 L [facility] FVC-Pre 2.69 L [facility] FVC-%Pred-Pre 80 % [facility] FEV1-Pre 1.71 L [facility]FT FEV1-%Pred-Pre 64 % [facility] [id number] 80 % [facility] [id number] 64 % [facility] FEFMax-Pred 6.94 L/sec [facility]FT FEFMax-Pre 4.89 L/sec [facility] FEFMax-%Pred-Pr e 70 % [facility] [id number] 2.45 L/sec [facility] [id number] 0.83 L/sec [facility] [id number]-%Pred-P re 33 % [facility] [id number] 0.84 L/sec [facility] [id number]-%Pred-P ost 34 % [facility] ExpTime-Pre 9.15 sec [facility] PFT FIFMax-Pre 3.77 L/sec [facility] VC-Pred 3.88 L [facility] PFT VC-Pre 2.70 L [facility] PFT VC-%Pred-Pre 69 % [facility] IC-Pred 2.76 L [facility] PFT IC-Pre 2.40 L [facility] PFT IC-%Pred-Pre 87 % [facility] ERV-Pred 1.02 L [facility] PFT ERV-Pre 0.30 L [facility] PFT ERV-%Pred-Pre 29 % [facility] PFT [id number]-Iqse 81 % [facility] PFT [id number]-Vof 66 % [facility] PFT FRCPleth-Pred 3.12 L [...] [facility] PFT VA-%Pred-Pre 79 % [facility] PFT [id number]-Asrc 69 % [facility] PFT [id number]-Tig 63 % [facility] PFT 11/17/2024 12:3 7 PM ASSISTANT WRESTLING COACH Narrative [facility] - 11/17/2024 6:36 PM ASSISTANT WRESTLING COACH The FEV1, FEV1/FVC ratio, and the FEV1/FEV6 [...] electronically signed: [employer] 11/17/2024 06:33:04 PM [facility] PFT ORDERABLES Final Result [facility] * Extra Red Top Tube (11/03/2024 2:23 PM ASSISTANT WRESTLING COACH) [facility] Hold Specimen [facility] 11/03/2024 3:46 PM ASSISTANT WRESTLING COACH [facility] Blood STRUCTURE OF RIGHT UPPER LIMB / Unknown Venipuncture / Unknown 11/03/2024 2:23 PM ASSISTANT WRESTLING COACH 11/03/2024 2:32 PM ASSISTANT WRESTLING COACH us Bernardino Dennis MD LAB - BLOOD ORDERABLES Fi nal Result LABORATORY [facility] [address] Lab (1st floor, no room number) [place] [phone] [place] [address] * Extra Blue Top Tube (11/03/2024 2:23 PM ASSISTANT WRESTLING COACH) Hold Specimen [facility] 11/03/2024 3:46 PM ASSISTANT WRESTLING COACH LABORATORY Blood STRUCTURE OF RIGHT UPPER LIMB / Unknown Venipuncture / Unknown 11/03/2024 2:23 PM ASSISTANT WRESTLING COACH 11/03/2024 2:32 PM ASSISTANT WRESTLING COACH Bernardino Dennis MD LAB - BLOOD ORDERABLES Fi nal Result Performing Organization Address City/[facility]/ZIP Co de Phone Number LABORATORY [facility] Care Lab [id number] Lab (1st floor, no room number) [address] * (ABNORMAL) CBC with platelets and differential (11/03/2024 2:23 PM ASSISTANT WRESTLING COACH) WBC Count 14.6(H) 4.0 - 11.0 10e3/uL 11/03/2024 2:36 PM ASSISTANT WRESTLING COACH [facility] RBC Count 5.05 3.80 - 5.20 10e6/uL 11/03/2024 2:36 PM ASSISTANT WRESTLING COACH [facility] Hemoglobin 13.9 11.7 - 15.7 g/dL 11/03/2024 2:36 PM ASSISTANT WRESTLING COACH [facility] Hematocrit 44.0 35.0 - 47.0 % 11/03/2024 2:36 PM ASSISTANT WRESTLING COACH [facility] MCV 87 78 - 100 fL 11/03/2024 2:36 PM ASSISTANT WRESTLING COACH [facility] MCH 27.5 26.5 - 33.0 pg 11/03/2024 2:36 PM ASSISTANT WRESTLING COACH [facility] MCHC 31.6 31.5 - 36.5 g/dL 11/03/2024 2:36 PM ASSISTANT WRESTLING COACH [facility] RDW 14.9 10.0 - 15.0 % 11/03/2024 2:36 PM ASSISTANT WRESTLING COACH [facility] Platelet Count 360 150 - 450 10e3/uL 11/03/2024 2:36 PM ASSISTANT WRESTLING COACH [facility] % Neutrophils 70 % 11/03/2024 2:36 PM ASSISTANT WRESTLING COACH [facility] % Lymphocytes 22 % 11/03/2024 2:36 PM ASSISTANT WRESTLING COACH [facility] % Monocytes 5 % 11/03/2024 2:36 PM ASSISTANT WRESTLING COACH [facility] % Eosinophils 1 % 11/03/2024 2:36 PM ASSISTANT WRESTLING COACH [facility] % Basophils 1 % 11/03/2024 2:36 PM ASSISTANT WRESTLING COACH [facility] % Immature Granulocytes 1 % 11/03/2024 2:36 PM ASSISTANT WRESTLING COACH [facility] NRBCs per 100 WBC 0 <1 /100 024 2:36 PM ASSISTANT WRESTLING COACH [facility] Absolute Neutrophils 10.2(H) 1.6 - 8.3 10e3/uL 11/03/2024 2:36 PM ASSISTANT WRESTLING COACH [facility] Absolute Lymphocytes 3.2 0.8 - 5.3 10e3/uL 11/03/2024 2:36 PM ASSISTANT WRESTLING COACH [facility] Absolute Monocytes 0.8 0.0 - 1.3 10e3/uL 11/03/2024 2:36 PM ASSISTANT WRESTLING COACH [facility] Absolute Eosinophils 0.2 0.0 - 0.7 10e3/uL 11/03/2024 2:36 PM ASSISTANT WRESTLING COACH [facility] Absolute Basophils 0.1 0.0 - 0.2 10e3/uL 11/03/2024 2:36 PM ASSISTANT WRESTLING COACH [facility] Absolute Immature Granulocytes 0.2 <=0.4 10e3/uL 11/03/2024 2:36 PM ASSISTANT WRESTLING COACH [facility] Absolute NRBCs 0.0 10e3/uL 11/03/2024 2:36 PM ASSISTANT WRESTLING COACH [facility] Blood STRUCTURE OF RIGHT UPPER LIMB / Unknown Venipuncture / Unknown 11/03/2024 2:23 PM ASSISTANT WRESTLING COACH 11/03/2024 2:32 PM ASSISTANT WRESTLING COACH us Bernardino Dennis MD LAB - BLOOD ORDERABLES Fi nal Result LABORATORY [facility] [address] Lab (1st floor, no room number) [place] [address], [facility] * Troponin T, High Sensitivity (11/03/2024 2:23 PM ASSISTANT WRESTLING COACH) Pathologist [facility] [place] Troponin T, High Sensitivity 11 <=14 ng/L 11/03/2024 3:00 PM ASSISTANT WRESTLING COACH LABORATORY Comment: Either a High Sensitivity Troponin [...] Unknown Venipuncture / Unknown 11/03/2024 2:23 PM ASSISTANT WRESTLING COACH 11/03/2024 2:32 PM ASSISTANT WRESTLING COACH Bernardino Dennis MD LAB - BLOOD ORDERABLES Fi nal Result [facility] Acute Care Lab [address] Lab (1st floor, no room number) [place] [phone] [place] [address] * (ABNORMAL) INR (11/03/2024 2:23 PM ASSISTANT WRESTLING COACH) Pathologist [facility] [place] INR 2.24(H) 0.85 - 1.15 11/03/2024 4:43 PM ASSISTANT WRESTLING COACH LABORATORY Blood STRUCTURE OF RIGHT UPPER LIMB / Unknown Venipuncture / Unknown 11/03/2024 2:23 PM ASSISTANT WRESTLING COACH 11/03/2024 2:32 PM ASSISTANT WRESTLING COACH us Bernardino Dennis MD LAB - BLOOD ORDERABLES Fi nal Result [facility] Acute Care Lab [address] Lab (1st floor, no room number) [place] [address], [facility] * D dimer quantitative (11/03/2024 2:23 PM ASSISTANT WRESTLING COACH) D-Dimer Quantitative <0.27 0.00 - 0.50 ug/mL FEU 11/03/2024 4:46 PM ASSISTANT WRESTLING COACH [facility] Blood STRUCTURE OF RIGHT UPPER LIMB / Unknown Venipuncture / Unknown 11/03/2024 2:23 PM ASSISTANT WRESTLING COACH 11/03/2024 2:32 PM ASSISTANT WRESTLING COACH Narrative [facility] - 11/03/2024 4:46 PM ASSISTANT WRESTLING COACH This D-dimer assay is intended for use [...] ug/mL = 0.76 ug/mL (760 ug/L). M Michelle et al. Age adjusted D-dimer cut-off levels to rule out pulmonary embolism: The ADJUST-PE Study. ANT 2014;311:6976-0183.; HJ Margarette et al. Diagnostic accuracy of conventional or age adjusted D-dimer cutoff values in older patients with suspected venous thromboembolism. Systemic review and meta-analysis. BMJ 2013:346:f2492. us Bernardino Dennis MD LAB - BLOOD ORDERABLES Fi nal Result LABORATORY [facility] [address] [facility] Lab (1st floor, no room number) [place] [phone] * (ABNORMAL) Basic metabolic panel (11/03/2024 2:23 PM ASSISTANT WRESTLING COACH) Sodium 138 135 - 145 mmol/L 11/03/2024 3:00 PM ASSISTANT WRESTLING COACH LABORATORY Potassium 3.7 3.4 - 5.3 mmol/L 11/03/2024 3:00 PM [facility] Chloride 99 98 - 107 mmol/L 11/03/2024 3:00 PM [facility] Carbon Dioxide (CO2) 25 22 - 29 mmol/L 11/03/2024 3:00 PM [facility] Anion Gap 14 7 - 15 mmol/L 11/03/2024 3:00 PM [facility] Urea Nitrogen 11.9 6.0 - 20.0 mg/dL 11/03/2024 3:00 PM [facility] Creatinine 0.71 0.51 - 0.95 mg/dL 11/03/2024 3:00 PM [facility] GFR Estimate >90 >60 mL/min/1.7 3m2 11/03/2024 3:00 PM [facility] Comment:eGFR calculated usmt 2020 CKD-EPI equation. Calcium 9.5 8.8 - 10.4 mg/dL 11/03/2024 3:00 PM [facility] Comment:Reference intervals for this test were updated on 05/30/2024 to reflect our healthy population more accurately. There may be differences in the flagging of prior results with similar values performed with this method. Those prior results can be interpreted in the context of the updated reference intervals. Glucose 122(H) 70 - 99 mg/dL 11/03/2024 3:00 PM [facility] Blood STRUCTURE OF RIGHT UPPER LIMB / Unknown Venipuncture / Unknown 11/03/2024 2:23 PM ASSISTANT WRESTLING COACH 11/03/2024 2:32 PM ASSISTANT WRESTLING COACH Bernardino Dennis MD LAB - BLOOD ORDERABLES Fi nal Result LABORATORY [facility] [address] Lab (1st floor, no room number) [place] [address], [facility] * EKG 12-lead, tracing only (11/03/2024 2:13 PM ASSISTANT WRESTLING COACH) Systolic Blood Pressure mmHg RADIOLOGY RESULTS Diastolic Blood Pressure mmHg RADIOLOGY RESULTS Ventricular Rate 80 BPM RAD IOLOGY RESULTS Atrial Rate 80 BPM RADIOLOG Y RESULTS WV Interval 132 ms RADIOLOG Y RESULTS QRS Duration 86 ms RADIOLO GY RESULTS QT 396 ms RADIOLOGY RESULTS QTc 456 ms RADIOLOGY RESULTS P [place] 34 degrees RADIOLOGY RESULTS R AXIS 60 degrees RADIOLOGY RESULTS T [place] 41 degrees RADIOLOGY RESULTS Interpretation ECG Sinus rhythm with occasional Premature ventricular complexes Otherwise normal ECG When compared with ECG of 30-Apr-2003 09:46, Premature ventricular complexes are now Present Unconfirmed report - interpretation of this ECG is computer generated - see medical record for final interpretation Confirmed by - EMERGENCY ROOM, PHYSICIAN ([id number]), editor publications NAYLA MENDOSA ([id number]) on 11/03/2024 3:50:45 PM RADIOLOGY RESULTS 11/03/2024 2:13 PM ASSISTANT WRESTLING COACH 11/03/2024 3:50 PM ASSISTANT WRESTLING COACH us Bernardino Dennis MD ECG ORDERABLES Edited Re sult - Final RADIOLOGY RESULTS * Xray Imaging - HIM Scan (11/03/2024 12:00 AM ASSISTANT WRESTLING COACH) Anatomical Region Laterality Modality Other 11/03/2024 us Provider Outside IMG DIAGNOSTIC IMAGING ORDERABL ES Final Result * CT Imaging - HIM Scan (11/03/2024 12:00 AM ASSISTANT WRESTLING COACH) Anatomical Region Laterality Modality Computed Tomogra phy 11/03/2024 us Provider Outside IMG CT ORDERABLES Final Result * Lab Result - HIM Scan (10/09/2024 12:00 AM ASSISTANT WRESTLING COACH) 10/09/2024 us Provider Outside NON-BEAKER LAB TESTING Final Result * EKG Cardiac - HIM Scan (10/09/2024 12:00 AM ASSISTANT WRESTLING COACH) 10/09/2024 us Provider Outside ECG ORDERABLES Final Result from Last 3 Months Insurance [facility] [employer] Member Subscriber Plan / Payer (Ef fective 2023-Present) Name:Radha Amanda Relation to Subscriber:Self Name:Vasiliy Radha A Payer ID:[id number] (NAIC) Type:HMO Address: [place] [phone] [facility] [employer] Member Subscriber Plan / Payer (Ef fective 2023-Present) Name:Radha Amanda Relation to Subscriber:Self Name:Vasiliy Radha A Payer ID:[id number] (NAIC) Type:HMO Address: [place] [phone] Care Teams Acquisition Associate Relationship Specialty Start Date End Date Luis Manuel Shine PA-C [address] [place] [address] PCP - General 11/03/24
--- OUTSIDE RECORDS SUMMARY | 2024-12-08 10:55 | XMS_ITS | Encounter Summary ---
Author Organization [facility] Address [address] [place] [id number] Care Team Providers Care Data Collection Specialist Name Role Phone Luis Manuel Shine PA-C Primary Care Provider [phone] Reason for Visit * Diagnostic Imaging XR (Routine) - Pending Review Specialty Diagnoses / Procedures Referred By Walter lane Referred To Contact Radiology. Diagnoses Small airways disease Dyspnea, unspecified type Procedures XR Chest 2 Views Monika Vega MD [address] [place] [id number] Phone: tel: fax: Referral ID Status Reason Start Date Expiration Date V isits Requested Visits Authorized [id number] Pending Review 11/17/2024 11/17/2025 1 1 Encounter Details Date Type Department Care Team (Latest Contact Info) Description 11/17/2024 2:30 PM [employer] Ancillary Procedure [facility] Xray [address] [place] [address] Small airways disease; Dyspnea, unspecified type Social History Tobacco Use Types Packs/Day Years Used Date Smoking Tobacco: Former Cigarettes Smokeless Tobacco: Never PHQ-2 Answer Date Recorded PHQ-2 Score 1 11/17/2024 Comments No Sex and Gender Information Value Date Recorded Sex Assigned at Not on file Legal Sex Female 4:24 AM [employer] Gender Identity Not on file Sexual Orientation Not on file documented as of this encounter Plan of Treatment Upcoming Encounters Date Type Department Care Team (Late st Contact Info) Description 03/30/2025 2:00 PM CDT Office Visit [facility] Pulmonary Function Testing [place] [address] [phone] 03/30/2025 2:30 PM CDT Office Visit [facility] Function Testing [address] [phone] 03/30/2025 3:00 PM CDT Office Visit [facility] [address] [phone] Monika Vega MD [address] [place] [id number] documented as of this encounter Procedures Procedure Name Priority Date/Time Associated Diagnosis Comments XR CHEST 2 VIEWS Routine 11/17/2024 2:22 PM [employer] Small airways disease Dyspnea, unspecified type documented in this encounter Results * XR Chest 2 Views (11/17/2024 2:22 PM [employer]PER[employer]) Anatomical Region Laterality Modality Chest Digital Radiogra phy Impressions 11/17/2024 3:06 PM [employer]PER[employer]OR Impression: Similar streaky perihilar and bibasilar opacities compared to prior radiograph from 10/09/2024. No new consolidation. I have personally reviewed the examination and initial interpretation and I agree with the findings. ESTEBAN GUTHRIE MD Narrative 11/17/2024 3:06 PM [employer]PER[employer]OR Exam: XR CHEST 2 VIEWS, 11/17/2024 2:22 [...] agree with the findings. ESTEBAN GUTHRIE MD [facility] ORDERABLE S Final Result documented in this encounter Visit Diagnoses Diagnosis Small airways disease Other diseases of lung, not elsewhere classified Dyspnea, unspecified type documented in this encounter Care Teams Data Collection Specialist Relationship Specialty Start Date End Date Luis Manuel Shine PA-C [facility] [address] [place] [address] PCP - General 11/03/24 documented as of this encounter
--- NOTE | 2024-12-08 12:03 | ED.GENADULT ---
HPI - General Adult General Date Seen: 12/08/24 Chief complaint: Shortness of Breath/Dyspnea Stated complaint: Suspected blood clot, can't breath Time Seen by Provider: 12/08/24 10:03 Source: patient Mode of arrival: ambulatory Limitations: no limitations History of Present Illness HPI narrative: Patient is a 54-year-old female presenting to the emergency department for multiple complaints. Her main concern is that she noticed redness to her right lower leg on the medial aspect and was concerned she has a DVT. She has had a DVT before at her thigh but is currently on warfarin. First noticed it this morning and believes it is getting worse. With this she has also been having exertional dyspnea that started this morning. Does states she has chronic respiratory issues and has been doing pulmonary testing since August but it seemed worse today. Has not had any associated chest pain. Also states she woke up with a headache that is been gradually getting worse throughout the day and describes it as severe pain with starting for the wraps around to the back of her head. States she does get headaches frequently but this 1 seems worse. Has not taken anything for headache. States she has been taking other medications appropriately at home. Denies fevers, abdominal pain, nausea, vomiting, diarrhea, constipation, vision changes, weakness, numbness, lightheadedness, dizziness. It does states she has intermittent for bilateral flank pain usually worse on the right. States it is an intermittent sharp pain. States she is not having any pain right now. Related Data Previous Rx's ?Medication ?Instructions ?Recorded warfarin 1 mg tablet 1 mg PO DIRECTED #90 tabs 11/12/23 albuterol sulfate 90 mcg/actuation 2 puff inhalation Q6H PRN 10/23/24 aerosol inhaler shortness of breath or wheezing #6.7 grams codeine 10 mg-guaifenesin 100 mg/5 5 - 10 ml PO Q4-6H PRN cough #120 10/23/24 mL oral liquid mL warfarin 5 mg tablet 5 mg PO DAILY #90 tabs 10/31/24 losartan 25 mg tablet 25 mg PO QDAY 30 days #30 tabs 11/03/24 cephalexin 500 mg capsule 500 mg PO QID #20 caps 12/08/24 Allergies Allergy/AdvReac Type Severity Reaction Status Date / Time Sulfa (Sulfonamide Allergy Verified 12/08/24 12:10 Antibiotics) Review of Systems Status of ROS: Reports: 10 or more systems reviewed and unremarkable except as noted in History and below PFSH PFS Medical History Factor 5 Leiden mutation, heterozygous ?D68.51 - Activated protein C resistance (ICD-10) History of seizure ?Z87.898 - Personal history of other specified conditions (ICD-10) Elevated cholesterol ?E78.00 - Pure hypercholesterolemia, unspecified (ICD-10) DVT (deep venous thrombosis) ?I82.409 - Acute embolism and thrombosis of unspecified deep veins of unspecified lower extremity (ICD-10) Diverticulitis of sigmoid colon ?K57.32 - Diverticulitis of large intestine without perforation or abscess without bleeding (ICD-10) Cholelithiasis ?K80.20 - Calculus of gallbladder without cholecystitis without obstruction (ICD-10) Surgical History History of right cataract extraction ?Z98.41 - Cataract extraction status, right eye (ICD-10) History of left cataract extraction ?Z98.42 - Cataract extraction status, left eye (ICD-10) History of colonoscopy ?Z98.890 - Other specified postprocedural states (ICD-10) History of section ?Z98.891 - History of uterine scar from previous surgery (ICD-10) S/P gastric bypass ?Z98.84 - Bariatric surgery status (ICD-10) History of tonsillectomy ?Z90.89 - Acquired absence of other organs (ICD-10) deliv NOS-unsp History of cholecystectomy ?Z90.49 - Acquired absence of other specified parts of digestive tract (ICD-10) Family History Father Diabetes Other Bleeding disorder COPD (chronic obstructive pulmonary disease) Heart disease High blood pressure High cholesterol Mental disorder Social History Narrative: alcohol ingestion, 1-4 drinks/week, approximately 2 drinks per week does not use illicit drugs non-smoker What is your current living situation?: I presently have a place to live Problems where you live: no known problems In the past 12 months, utilities in danger of being shut off: no In past 12 months, lack of transportation kept you from medical appts, meetings, work, or getting things needed for daily living: no In the past 12 mos, have been you worried that your food would run out before you had money to buy more?: never true In the past 12 mos, the food you bought just didn't last and you didn't have money to buy more?: never true Smoking Status: Never smoker Do you use any of these nicotine containing products: None How often do you have a drink containing alcohol: never How often do you have six or more drinks on one occasion: Never AUDIT-C Alcohol total score: 0 Non-prescribed substance use: denies use How often does anyone, including family, friends and others, physically hurt you: never How often does anyone, including family, friends and others, insult or talk down to you: never How often does anyone, including family, friends and others, threaten you with harm: never How often does anyone, including family, friends and others, scream or curse at you: never service: No Exam Narrative: Exam Narrative: Const: Well-nourished, Well-developed, in mild distress Eyes: PERRL, no conjunctival injection, and symmetrical lids HENT: Atraumatic external nose and ears. Moist mucous membranes. Neck: Symmetric, trachea midline, No thyromegaly. CVS: RRR, No murmurs or gallops. Peripheral pulses 2+ and equal in all extremities RESP: Unlabored respiratory effort. Clear to auscultation bilaterally. Right CVA tenderness GI: Nontender/Nondistended, No rebound or guarding. MSK:Extremities w/o deformity, Normal Active ROM Skin: Warm, Dry. Mild erythema and warmth noted to a 3 x 3 area left distal lower leg on the medial aspect just anterior to the medial malleolus. Neuro: Normal Muscle tone, No focal neurological deficits. Psych: Awake, Alert, & Oriented x3. Appropriate mood and affect. Const: Vital Signs, click to edit/add: Vital Signs - 24 hr 12/08/24 10:01 12/08/24 12:19 12/08/24 12:20 Temperature 97.9 F Pulse Rate 93 92 Pulse Rate [Pulse Oximeter] 100 Respiratory Rate 18 18 Blood Pressure 202/109 H Blood Pressure [Ri ght Upper Arm] 184/116 H Pulse Oximetry 97 96 92 12/08/24 12:32 12/08/24 12:45 Temperature Pulse Rate 93 90 Pulse Rate [Pulse Oximeter] Respiratory Rate Blood Pressure Blood Pressure [Ri ght Upper Arm] Pulse Oximetry 93 92 Course Vital Signs Vital signs: Initial Vital Signs Temperature 97.9 F 12/08/24 10:01 Temperature Source Temporal Artery Scan 12/08/24 10:01 Pulse Rate 100 12/08/24 10:01 Respiratory Rate 18 12/08/24 10:01 Blood Pressure 184/116 H 12/08/24 10:01 Blood Pressure Mean 138 H 12/08/24 10:01 Blood Pressure Position Sitting 12/08/24 10:01 Pulse Oximetry 97 12/08/24 10:01 Vital Signs Temperature 97.9 F 12/08/24 10:01 Pulse Rate 100 12/08/24 10:01 Respiratory Rate 18 12/08/24 10:01 Blood Pressure 184/116 H 12/08/24 10:01 Pulse Oximetry 97 12/08/24 10:01 Temperature 97.9 F 12/08/24 10:01 Pulse Rate 90 12/08/24 12:45 Respiratory Rate 18 12/08/24 12:20 Blood Pressure 202/109 H 12/08/24 12:20 Pulse Oximetry 92 12/08/24 12:45 Medications Administered Medications: Discontinued Medications Generic Name Dose Route Start Last Admin Trade Name Freq PRN Reason Stop Dose Admin Diphenhydramine HCl 25 mg 12/08/24 10:38 12/08/24 12:36 Diphenhydramine 50 Mg/Ml Inj IVP 12/08/24 10:39 25 mg ONCE ONE Administration Lactated Ringer's 1,000 mls @ 1,000 mls/hr 12/08/24 10:38 12/08/24 13:35 Lactated Ringers 1000 Ml IV 12/08/24 11:37 Infused .Q1H ONE Infusion Ketorolac Tromethamine 15 mg 12/08/24 10:38 12/08/24 12:33 Ketorolac 15 Mg/Ml Inj IVP 12/08/24 10:39 15 mg ONCE ONE Administration Metoclopramide HCl 10 mg 12/08/24 10:38 12/08/24 12:38 Metoclopramide Hcl 5 Mg/Ml Inj IVP 12/08/24 10:39 10 mg ONCE ONE Administration Medical Decision Making MDM Narrative Medical decision making narrative: Patient is a 54-year-old female presenting to the emergency department for multiple complaints. Her main complaint is concerned about a DVT. I will order an ultrasound to rule that out. On my exam that seems more likely this and it is cellulitis that is causing her symptoms. She is also having so she had dyspnea and even though she is on warfarin I will do a CTA to rule out blood clots. This will also help look for signs of pneumonia or any other abnormalities. For her flank pain this is likely musculoskeletal but I will do a CT scan also to rule out any other concerning findings. EKG and troponin order to look for signs of ACS or other arrhythmias. She is otherwise stable at do not believe she is having an aortic dissection or aneurysm or rupture. At the same time she is having a severe headache and while there was not maximal impulse when it started I will do a CT scan for better evaluation. Symptoms started within the past 6 hours so there is a subarachnoid hemorrhage it should be able to be seen. In the meantime will give her a migraine cocktail. She is agreeable to this plan. Patient's lab work returned elevated with white count of 17. Otherwise lab work shows no concerning abnormalities. EKG and troponin showed no acute concerning abnormalities. Do not believe repeat troponin is necessary concerns symptoms have been going on since she woke up early this morning. CT imaging reviewed by myself and the radiologist shows no acute concerning abnormalities. She is feeling better after the migraine cocktail. Did order lactate and blood cultures as she does meet SIRS criteria. I do believe she has a cellulitis of right lower leg. Will start her on antibiotics. She feels comfortable with discharge. Lab Data Labs: Lab Results 12/08/24 12/08/24 12/08/24 Range/Units 10:39 11:50 12:37 WBC 15.14 H (4.50-11.00) K/uL RBC 5.14 (4.00-5.20) m/uL Hgb 14.3 (12.0-16.0) gm/dL Hct 45.5 (33.0-51.0) % MCV 89 (80-100) fL MCH 28 (26-34) pg MCHC 31 L (32-36) gm/dL RDW Coeff of Mindy 13.9 (11.5-15.5) % Plt Count 313 (140-440) K/uL Neut % (Auto) 86.0 H (42.0-72.0) % Lymph % (Auto) 8.6 L (20-44) % [place] % (Auto) 3.7 (0.0-11.0) % Eos % (Auto) 1.0 (0.0-7.0) % Baso % (Auto) 0.4 (0.0-3.0) % Neut # (Auto) 13.00 H (1.7-7.0) K/uL Lymph # (Auto) 1.30 (0.90-2.90) K/uL [place] # (Auto) 0.60 (0.00-0.90) K/UL Eos # (Auto) 0.20 (0.00-0.50) K/uL Baso # (Auto) 0.10 (0.00-0.30) K/uL Abs Immat Gran (auto) 0.00 (0.00-0.30) K/uL Imm/Tot Granulo (auto) 0.3 % INR 1.93 H (0.91-1.10) Sodium 138 (135-149) mmol/L Potassium 4.0 (3.6-5.1) mmol/L Chloride 104 (96-114) mmol/L Carbon Dioxide 25 (20-32) mmol/L Anion Gap 9 (7-15) mEq/L BUN 11 (7-30) mg/dL Creatinine 0.6 (0.5-1.5) mg/dL Estimated Creat Clear 101.81 Estimated GFR 105 ml/min Glucose 96 (60-115) mg/dL Lactate (0.5-1.9) mmol/L Calcium 9.4 (8.4-10.6) mg/dL Total Bilirubin 0.7 (0.1-1.5) mg/dL AST 27 (12-35) U/L ALT 25 (4-35) U/L Alkaline Phosphatase 84 (40-150) U/L Total Protein 7.7 (6.0-8.3) g/dL Albumin 4.4 (3.3-5.0) g/dL Lab Acknowledgement Test Added POC Troponin I 0.01 (0.01-0.04) ng/ml 12/08/24 Range/Units 13:23 WBC (4.50-11.00) K/uL RBC (4.00-5.20) m/uL Hgb (12.0-16.0) gm/dL Hct (33.0-51.0) % MCV (80-100) fL MCH (26-34) pg MCHC (32-36) gm/dL RDW Coeff of Mindy (11.5-15.5) % Plt Count (140-440) K/uL Neut % (Auto) (42.0-72.0) % Lymph % (Auto) (20-44) % [place] % (Auto) (0.0-11.0) % Eos % (Auto) (0.0-7.0) % Baso % (Auto) (0.0-3.0) % Neut # (Auto) (1.7-7.0) K/uL Lymph # (Auto) (0.90-2.90) K/uL [place] # (Auto) (0.00-0.90) K/UL Eos # (Auto) (0.00-0.50) K/uL Baso # (Auto) (0.00-0.30) K/uL Abs Immat Gran (auto) (0.00-0.30) K/uL Imm/Tot Granulo (auto) % INR (0.91-1.10) Sodium (135-149) mmol/L Potassium (3.6-5.1) mmol/L Chloride (96-114) mmol/L Carbon Dioxide (20-32) mmol/L Anion Gap (7-15) mEq/L BUN (7-30) mg/dL Creatinine (0.5-1.5) mg/dL Estimated Creat Clear Estimated GFR ml/min Glucose (60-115) mg/dL Lactate 1.2 (0.5-1.9) mmol/L Calcium (8.4-10.6) mg/dL Total Bilirubin (0.1-1.5) mg/dL AST (12-35) U/L ALT (4-35) U/L Alkaline Phosphatase (40-150) U/L Total Protein (6.0-8.3) g/dL Albumin (3.3-5.0) g/dL Lab Acknowledgement POC Troponin I (0.01-0.04) ng/ml Imaging Data CT scan head: Attestation: I have reviewed the pertinent imaging results. Radiologist's impression: No acute intracranial findings. Please note that all CT scans at this facility use dose modulation, iterative reconstruction, and/or weight-based dosing when appropriate to reduce radiation dose to as low as reasonably achievable. Dictated by Lux Pillai MD @ 12/08/2024 12:16:[address] scan abdomen and pelvis: Attestation: I have reviewed the pertinent imaging results. Radiologist's impression: No acute abdominal pelvic pathology. The etiology of the patient`s flank pain is not elucidated on this examination. Please note that all CT scans at this facility use dose modulation, iterative reconstruction, and/or weight-based dosing when appropriate to reduce radiation dose to as low as reasonably achievable. Dictated by Lux Pillai MD @ 12/08/2024 12:28:20 PM CTA chest: Attestation: I have reviewed the pertinent imaging results. Radiologist's impression: 1. No pulmonary embolus. No CT evidence of right heart strain. 2. Stable diffuse mosaic attenuation of the lungs bilaterally, nonspecific and can be seen with small airways versus small vessels disease. 3. No other acute intrathoracic findings. Please note that all CT scans at this facility use dose modulation, iterative reconstruction, and/or weight-based dosing when appropriate to reduce radiation dose to as low as reasonably achievable. Dictated by Lux Pillai MD @ 12/08/2024 12:24:36 PM Venous US: Attestation: I have reviewed the pertinent imaging results. Radiologist's impression: No deep vein thrombus within the right lower extremity. Dictated by Lux Pillai MD @ 12/08/2024 12:06:14 PM ECG Data Attestation: I personally reviewed and interpreted this ECG as follows: Prior ECG tracings: available for review Interpretation: Normal sinus rhythm with a rate of 85 beats per minute, normal intervals, normal axis, no ST or T-wave abnormalities. Discharge Plan Discharge Clinical Impression: Cellulitis Qualifiers: Site of cellulitis: extremity Site of cellulitis of extremity: lower extremity Laterality: right Qualified Code(s): L03.115 - Cellulitis of right lower limb Patient Disposition: Home, Self-Care Condition: Stable Instructions: Cellulitis (ED) Additional Instructions: Take Tylenol and ibuprofen for headache. Return to emergency department for new or worsening symptoms. Take the Keflex for your cellulitis. Return to the emergency department for new or worsening symptoms. It may take up to 72 hours to notice clear improvement of your cellulitis Prescriptions: New cephalexin 500 mg capsule 500 mg PO QID Qty: 20 0RF No Action codeine-guaifenesin 10-100 mg/5 mL liquid 5 - 10 ml PO Q4-6H PRN (Reason: cough) Qty: 120 0RF albuterol sulfate 90 mcg/actuation HFA aerosol inhaler 2 puff inhalation Q6H PRN (Reason: shortness of breath or wheezing) Qty: 6.7 0RF warfarin 1 mg tablet 1 mg PO DIRECTED Qty: 90 0RF Protocol: Dose Management Condition: Wednesday Dose/Route: 5 mg Instruction: 1 x 5 mg tablet Condition: Wednesday Dose/Route: 5 mg Instruction: 1 x 5 mg tablet Condition: Wednesday Dose/Route: 5 mg Instruction: 1 x 5 mg tablet Condition: Wednesday Dose/Route: 5 mg Instruction: 1 x 5 mg tablet Condition: Dose/Route: 5 mg Instruction: 1 x 5 mg tablet Condition: Wednesday Dose/Route: 5 mg Instruction: 1 x 5 mg tablet Condition: Wednesday Dose/Route: 5 mg Instruction: 1 x 5 mg tablet Protocol Text: Adjustment Start Date: Wednesday10/24/24 INR Value: 2.92 INR Date: 10/23/24 Recheck Date: 11/21/24 Rx Instructions: Take 8mg Wed, Wed; and 7mg all other days of the week. warfarin 5 mg tablet 5 mg PO DAILY Qty: 90 0RF Protocol: Dose Management Condition: Wednesday Dose/Route: 5 mg Instruction: 1 x 5 mg tablet Condition: Wednesday Dose/Route: 5 mg Instruction: 1 x 5 mg tablet Condition: Wednesday Dose/Route: 5 mg Instruction: 1 x 5 mg tablet Condition: Wednesday Dose/Route: 5 mg Instruction: 1 x 5 mg tablet Condition: Dose/Route: 5 mg Instruction: 1 x 5 mg tablet Condition: Wednesday Dose/Route: 5 mg Instruction: 1 x 5 mg tablet Condition: Wednesday Dose/Route: 5 mg Instruction: 1 x 5 mg tablet Protocol Text: Adjustment Start Date: Crystal 12/10/24 INR Value: 2.92 INR Date: 10/23/24 Recheck Date: 11/21/24 losartan 25 mg tablet 25 mg PO QDAY 30 Days Qty: 30 1RF Follow Up/Referrals: Luis Manuel Shine PA-C [Primary Care Provider] - Stand Alone Forms: [employer] Info Instructions
[2024-12-08 12:07] LABS: Troponin, Point-of-Care* 0.01 ng/ml (0.01-0.04)
[2024-12-08 12:26] LABS: Albumin* 4.4 g/dL (3.3-5.0); Chloride* 104 mmol/L (96-114); Sodium* 138 mmol/L (135-149)
[2024-12-08 12:28] LABS: Anion Gap 9 mEq/L (7-15); Aspartate Amino Transferase* 27 U/L (12-35); Bilirubin Total* 0.7 mg/dL (0.1-1.5); Carbon Dioxide* 25 mmol/L (20-32); Creatinine* 0.6 mg/dL (0.5-1.5); Est. Creatinine Clearance* 101.81; Estimated Glomerular Filt Rate 105 ml/min; INR 1.93 (0.91-1.10); Prothrombin Time 23.4 Seconds; Total Protein* 7.7 g/dL (6.0-8.3)
[2024-12-08 12:29] LABS: Alanine Aminotransferase* 25 U/L (4-35); Alkaline Phosphatase* 84 U/L (40-150); Blood Urea Nitrogen* 11 mg/dL (7-30); Calcium* 9.4 mg/dL (8.4-10.6); Glucose* 96 mg/dL (60-115)
[2024-12-08] MEDS: LACTATED RINGERS 1000 ML 1,000 ML IV (12:33)
[2024-12-08] MEDS: KETOROLAC 15 MG/ML inj IVP (12:33)
[2024-12-08] MEDS: diphenhydrAMINE 50 MG/ML inj 25 MG IVP (12:36)
[2024-12-08] MEDS: METOCLOPRAMIDE HCL 5 MG/ML INJ 10 MG IVP (12:38)
[2024-12-08 12:50] LABS: Basophils Percent Auto 0.4 % (0.0-3.0); Hematocrit 45.5 % (33.0-51.0); Hemoglobin* 14.3 gm/dL (12.0-16.0); Immature Granulocytes Pct Auto 0.3 %; Lymphocytes Percent Auto 8.6 % (20-44); Mean Corpuscular HGB Conc 31 gm/dL (32-36); Mean Corpuscular Hemoglobin 28 pg (26-34); Mean Corpuscular Volume 89 fL (80-100); Monocytes Percent Auto 3.7 % (0.0-11.0); Platelet Count* 313 K/uL (140-440); RDW Coefficient of Variation % 13.9 % (11.5-15.5); Red Blood Count 5.14 m/uL (4.00-5.20); White Blood Count* 15.14 K/uL (4.50-11.00)
[2024-12-08 13:00] LABS: Slide Review Reflex No
[2024-12-08 13:40] LABS: Lactate* 1.2 mmol/L (0.5-1.9)
== END 2024-12-08 14:25 | disposition home or self-care (01) ==
PROVIDERS: Emergency Provider Student in an Organized Health Care Education/Training Program; PCP Physician Assistant Medical
DX: L03.115 Cellulitis of right lower limb (principal); R06.02 Shortness of breath
CPT/HCPCS: 36415; 70450; 71275; 74177; 80048; 80053; 82565; 83605; 84484; 85025; 85610; 87040; 93005; 93971; 96361; 96374; 96375; 99284; 99285; J1200; J1885; J2765; J7120; Q9967

== ENCOUNTER 2024-12-11 07:30 | Outpatient (CLI) | payer OTHER, SELFPAY ==
--- NOTE | 2024-12-11 07:45 | CRLHL7_ITS ---
For Patients: As a result of the Cures Act, medical imaging exams and procedure reports are released immediately into your electronic medical record. You may view this report before your referring provider. If you have questions, please contact your health care provider. DIGITAL DIAGNOSTIC LEFT MAMMOGRAM USING TOMOSYNTHESIS AND COMPUTER-AIDED DETECTION LEFT BREAST ULTRASOUND CLINICAL HISTORY: LEFT breast mass/asymmetry. COMPARISON: 11/28/24, 10/09/22, 02/04/21. TECHNIQUE: Digital LEFT mammogram in two projections. Tomosynthesis and CAD were used in this interpretation. Real-time ultrasound imaging of LEFT breast with imaging documentation. BREAST COMPOSITION: There are scattered areas of fibroglandular density. FINDINGS: 3D spot compression CC/MLO LEFT breast mammogram images submitted. Persistent densities within the lateral LEFT breast noted without architectural distortion or suspicious calcifications. Targeted LEFT breast ultrasound performed. At 3 o`clock 1 cm from the nipple, there is multi duct ectasia. No solid component. No intraductal nodule. No abnormal vascularity. IMPRESSION: Benign multi duct ectasia LEFT breast 3 o`clock 1 cm from the nipple. No evidence of intraductal lesion. RECOMMENDATIONS: Routine screening mammography. A lay language report of this examination will be provided to the patient. BI-RADS Category 2: Benign Dictated by Kt Irvin MD @ 12/11/2024 9:36:03 AM jj/Dictated by: Kt Irvin MD @ 12/11/2024 9:36:00 AM (Electronically Signed)
--- NOTE | 2024-12-11 08:15 | CRLHL7_ITS ---
For Patients: As a result of the Cures Act, medical imaging exams and procedure reports are released immediately into your electronic medical record. You may view this report before your referring provider. If you have questions, please contact your health care provider. SEE DIGITAL DIAGNOSTIC LEFT MAMMOGRAM PERFORMED SAME DAY CRL:finn briseno/Dictated by: Kt Irvin MD @ 12/11/2024 9:36:00 AM (Electronically Signed)
== END 2024-12-11 07:31 | disposition home or self-care (01) ==
LOC: MAMMO 07:31
PROVIDERS: PCP Physician Assistant Medical; Visit Provider Physician Assistant Medical
DX: N63.20 Unspecified lump in the left breast, unspecified quadrant (principal); R92.8 Other abnormal and inconclusive findings on diagnostic imaging of breast
CPT/HCPCS: 76642; 77065; G0279

== ENCOUNTER 2025-10-15 14:09 | Outpatient (CLI) | payer OTHER, SELFPAY | END 2025-10-15 14:10 | disposition home or self-care (01) | LOC: NFLDREF 10-19 07:53 | PROVIDERS: PCP Physician Assistant Medical; Referring Provider Physician Assistant Medical; Visit Provider Family Medicine | DX: K57.92 Diverticulitis of intestine, part unspecified, without perforation or abscess without bleeding (principal) | CPT/HCPCS: 87086 ==